=== PATIENT | male | born 1965 | race Caucasian/White ===

== ENCOUNTER → 2019-09-27 | Outpatient (CLI) | payer BC ==
[2019-09-27 10:02] LABS: Basophils # (A) 0.2 k/uL (0-0.2); Basophils % (A) 2 %; Eosinophils # (A) 0.3 k/uL (0-0.7); Eosinophils % (A) 3 %; HCT 48.6 % (39.0-53.0); HGB 16.5 gm/dL (13.0-17.5); Lymphocytes % (A) 30 %; MCH 32.3 pg (25.0-35.0); MCV 95.1 fL (80.0-100.0); Mean Platelet Volume 6.2; Monocytes # (A) 0.8 k/uL (0-1.0); Monocytes % (A) 7 %; Neutrophils # (A) 5.7 k/uL (1.3-7.7); Neutrophils % (A) 56 %; Platelet Count 361 k/uL (150-450); RBC 5.11 m/uL (4.30-5.90); WBC 10.2 k/uL (3.8-10.6)
[2019-09-27 16:04] LABS: African American GFR (CKD) 79.5 (60.0-200.0); Albumin 4.8 g/dL (3.80-4.90); Albumin/Globulin Ratio 2.67 (1.60-3.17); Anion Gap 12.6 mmol/L (4.00-12.00); Calcium 10.2 mg/dL (8.7-10.3); Carbon Dioxide 25.4 mmol/L (21.6-31.8); Chol/HDL Ratio 3.4; Globulin 1.8 g/dL (1.6-3.3); LDL Cholesterol,Calculated 76.4 mg/dL (0.0-131.0); Non-African American GFR(CKD) 68.6 (60.0-200.0); Potassium 4.8 mmol/L (3.5-5.5); Total Bilirubin 0.4 mg/dL (0.2-1.2); Total Protein 6.6 g/dL (6.2-8.2); VLDL Calculation 38.6 mg/dL (5.00-40.00)
[2019-09-27 17:41] LABS: Microalbumin Creatinine Ratio <30 mg/g Creat (0-30)
[2019-09-27 17:50] LABS: Hemoglobin A1C 7.7 % (4.0-6.0)
== END | disposition home or self-care (01) ==
LOC: LABWHC1 09:17
PROVIDERS: ATTEND Internal Medicine
DX: I10 Essential (primary) hypertension (principal); E11.65 Type 2 diabetes mellitus with hyperglycemia; E03.9 Hypothyroidism, unspecified; Z12.5 Encounter for screening for malignant neoplasm of prostate
CPT/HCPCS: 36415; 80053; 80061; 82043; 82570; 83036; 84153; 84439; 84443; 85025

== ENCOUNTER 2020-08-01 09:47 | Emergency (ER) | payer BC ==
--- NOTE | 2020-08-01 10:10 | ED ---
Fall HPI - General Chief Complaint: Fall Stated Complaint: Fall Time Seen by Provider: 08/01/20 09:58 Source: patient, RN notes reviewed, old records reviewed Mode of arrival: ambulatory - History of Present Illness Initial Comments: Patient is a 55-year-old male presents emergency room today with right rib and chest wall pain after falling on Thursday. Patient reports that he tripped and fell forward into a doorway try to catch himself on his hands. He states that he then fell backwards striking his back. He also states he has a black eye but did not have any loss consciousness or headache. The fall happened on Thursday. Patient reports that the chest wall pain is reproducible with movement. Denies any significant difficulty in breathing. He states it feels like rib fracture fractures these had previously. - Related Data Home Medications Medication Instructions Recorded Confirmed Sertraline [Zoloft] 100 mg PO BID 07/10/15 08/01/20 lisinopriL [Prinivil] 20 mg PO DAILY 07/10/15 08/01/20 metFORMIN HCL 1,000 mg PO BID 07/10/15 08/01/20 Hydrochlorothiazide 25 mg PO DAILY 08/20/16 08/01/20 Amitriptyline HCl [Elavil] 25 mg PO HS 08/01/20 08/01/20 Butalb/APAP/Caff 50-325-40Mg 1 tab PO Q4H PRN 08/01/20 08/01/20 [Fioricet 50-325-40] Gabapentin [Neurontin] 400 mg PO TID 08/01/20 08/01/20 Ibuprofen [Motrin Ib] 400 mg PO Q6H PRN 08/01/20 08/01/20 Levothyroxine Sodium [Synthroid] 25 mcg PO DAILY 08/01/20 08/01/20 Loratadine [Claritin] 10 mg PO DAILY 08/01/20 08/01/20 Simvastatin [Zocor] 20 mg PO HS 08/01/20 08/01/20 traMADol HCL [Ultram] 50 mg PO TID PRN 08/01/20 08/01/20 Previous Rx's Medication Instructions Recorded Naproxen 500 mg PO BID #20 tablet 08/01/20 Allergies Allergy/AdvReac Type Severity Reaction Status Date / Time Penicillins AdvReac Unknown Verified 08/01/20 11:07 Review of Systems ROS Statement: Those systems with pertinent positive or pertinent negative responses have been documented in the HPI. ROS Other: All systems not noted in ROS Statement are negative. Past Medical History Past Medical History: Diabetes Mellitus, Hyperlipidemia, Hypertension Additional Past Medical History / Comment(s): back pain History of Any Multi-Drug Resistant Organisms: None Reported Additional Past Surgical History / Comment(s): oral Past Psychological History: No Psychological Hx Reported, Depression Smoking Status: Current every day smoker Past Alcohol Use History: None Reported, Abuse Past Drug Use History: None Reported General Exam - General Exam Comments Initial Comments: Alert and oriented 55-year-old male. No distress. Limitations: no limitations General appearance: alert, in no apparent distress Head exam: Present: atraumatic, normocephalic, normal inspection Eye exam: Present: normal appearance, PERRL, EOMI, other (Patient contusion of the left eye.). Absent: scleral icterus, conjunctival injection, periorbital swelling ENT exam: Present: normal exam, mucous membranes moist Neck exam: Present: normal inspection. Absent: tenderness, meningismus, lymphadenopathy Respiratory exam: Present: normal lung sounds bilaterally, other (Patient has right-sided rib pain). Absent: respiratory distress, wheezes, rales, rhonchi, stridor Cardiovascular Exam: Present: regular rate, normal rhythm, normal heart sounds. Absent: systolic murmur, diastolic murmur, rubs, gallop, clicks GI/Abdominal exam: Present: soft, normal bowel sounds. Absent: distended, tenderness, guarding, rebound, rigid Extremities exam: Present: normal inspection, full ROM, normal capillary refill. Absent: tenderness, pedal edema, joint swelling, calf tenderness Back exam: Present: normal inspection Neurological exam: Present: alert, oriented X3, CN II-XII intact Psychiatric exam: Present: normal affect, normal mood Course Vital Signs 08/01/20 08/01/20 08/01/20 09:49 10:52 11:00 Temperature 97 F L Pulse Rate 75 78 78 Respiratory 16 18 18 Rate Blood Pressure 151/81 134/91 134/91 O2 Sat by Pulse 98 97 97 Oximetry Medical Decision Making - Medical Decision Making 55-year-old male presents with right rib pain and tenderness palpation since a fall on Thursday. He also has a black eye. No bony tenderness on the face. No loss consciousness. Patient's on a blood thinners. Chest x-ray and rib x-ray reviewed and show no evidence of fracture. Discussed likely contusion and muscle strain. Advised following up with PCP and will take antibiotic and her medicine for pain. - Radiology Data Radiology results: report reviewed Right rib and checks x-ray was reviewed lungs are clear. No pneumothorax. 2 showing. No evidence of displaced rib fracture or signs of fracture. Negative study. Disposition Clinical Impression: Rib contusion, Black eye Disposition: HOME SELF-CARE Condition: Good Instructions (If sedation given, give patient instructions): Rib Contusion (ED) Additional Instructions: Patient has a take Tylenol Motrin for pain. Return to the ED if any alarming signs or symptoms occur. Prescriptions: Naproxen 500 mg PO BID #20 tablet Is patient prescribed a controlled substance at d/c from ED?: No Referrals: Uriel Arzate MD [Primary Care Provider] - 1-2 days Time of Disposition: 11:19
--- NOTE | 2020-08-01 10:27 | XR ---
EXAMINATION TYPE: XR ribs RT w pa chest xray DATE OF EXAM: 08/01/2020 COMPARISON: NONE HISTORY: Pain TECHNIQUE: Single view of the chest 4 views of the ribs are submitted. FINDINGS: The lungs are clear. No Evidence for pneumothorax. No evidence for focal contusion. Medi astinal structures are midline. Evaluation of the ribs fails to demonstrate evidence for displaced r ib fracture or secondary sign of rib fracture. IMPRESSION: Negative study
[2020-08-01] MEDS ORDERED: KETOROLAC 15 MG/ML 1 ML VIAL IM STA (10:55)
[2020-08-01 11:05] VITALS: RESP 18
[2020-08-01] MEDS ORDERED: ACET/COD 300 MG/30 MG STARTER PACK 6 TAB BTL PO STA (11:18)
[2020-08-01 11:32] VITALS: BP 123/90; PULSE 76; TEMP 98.4
== END 2020-08-01 11:31 | disposition home or self-care (01) ==
LOC: EC 09:47
DX: S20.211A Contusion of right front wall of thorax, initial encounter (principal); S00.12XA Contusion of left eyelid and periocular area, initial encounter; E11.9 Type 2 diabetes mellitus without complications; E78.5 Hyperlipidemia, unspecified; I10 Essential (primary) hypertension; F32.9 Major depressive disorder, single episode, unspecified; Z79.84 Long term (current) use of oral hypoglycemic drugs; Z79.899 Other long term (current) drug therapy; Z88.0 Allergy status to penicillin; W01.10XA Fall on same level from slipping, tripping and stumbling with subsequent striking against unspecified object, initial encounter
CPT/HCPCS: 71101; 96372; 99284; J1885

== ENCOUNTER 2021-03-08 16:01 | Inpatient (IN) | payer BC ==
--- NOTE | 2021-03-08 16:22 | ED ---
General Adult HPI - General Stated complaint: Slurred speech, stumbling Time Seen by Provider: 03/08/21 16:16 - History of Present Illness Initial comments: Dictation was produced using [employer] dictation software. please excuse any grammatical, word or spelling errors. This patient was cared for during a federal and state declared state of emergen cy secondary to Covid 19 Chief Complaint: 56-year-old male with unknown medical history presents to the emergency department for garbled speech History of Present Illness: 86-year-old male according to chart review patient has past medical history diabetes dyslipidemia and hypertension. He allegedly was dropped off by significant other for chief complaint of garbled speech. Patient unable to provide history of present illness at this time. There is a female that dropped him off that left after patient was taken by ER staff. Chart review shows that patient was seen here in July of last year after a fall. Listed medical problems are diabetes dyslipidemia hypertension. He is also a tobacco user. Unable to obtain secondary to mental status PHYSICAL EXAM: General Impression: Alert, not in acute distress HEENT: Normocephalic atraumatic, extra-ocular movements intact, pupils equal and reactive to light bilaterally, mucous membranes moist. Cardiovascular: Heart regular rate and rhythm Chest: no retractions, no tachypnea Abdomen: abdomen soft, non-tender, non-distended, no organomegaly Musculoskeletal: Pulses present and equal in all extremities, no peripheral [place] Neurological: Doesn't follow commands, garbled speech, aphasic, does move all extremities grossly, does react to painful stimuli of all extremities. No identifiable facial droop at rest. ED course: 56-year-old male presents with neurologic deficits. He is unclear when time of onset of his symptoms were. It is assumed that it was rather acute. Code stroke was paged. Blood sugar is 119. More information was obtained from Chayo over the phone was his mother. Chayo gave me the contact information for Dot who lives with the patient. Dot was reset [phone]. She states that at approximately 4:10 PM patient began having symptoms of slurred speech and ataxia. States that around 4:00 PM he was at his baseline usual status.. Time of onset of patient's symptoms we are going to identify at around 4:00 PM. Further chart review was performed. There is no documentation in the ER note that states that patient ever had intracranial bleed. Furthermore, no neck limitation any coagulopathy. Patient's initial NIH score on arrival was 13. He does not follow commands, severe aphasia and slurred speech. Patient reevaluated at 4:45 PM. His symptoms are significantly improved. Patient'sNIH score was remeasured. He is now a 2-3. Risks and benefits were discussed with the administration of TPA. Patient is now coherent and able to make decisions. He is follow commands however he still mildly dysarthric and unable to repeat certain phrases. He is told that without this medicine he could have this speech issue permanently. Risks were discussed with the patient including intracranial bleed, permanent morbidity and mortality. Patient does not want TPA administered. Patient was evaluated via stroke robot by stroke Dr. Mcintyre. Patient is rap idly improving symptoms. CT of the brain is EKG was reviewed by stroke doctor. TPA was not indicated at this time due to rapidly improving NIH. At this point risks outweigh the benefits. Patient is agreeable with plan. Case is discussed with on-call neurologist Dr. Grady who requests ordering MRI and EEG. EKG interpretation: Ventricular rate 105, sinus tachycardia, DC interval 174, QRS 70, QTC 452. No DC prolongation, no QTC prolongation, no ST or T-wave changes noted. No old EKG for comparison. Overall, this EKG is nonspecific - Related Data Home Medications Medication Instructions Recorded Confirmed Sertraline [Zoloft] 100 mg PO DAILY 07/10/15 03/08/21 lisinopriL [Prinivil] 20 mg PO DAILY 07/10/15 03/08/21 metFORMIN HCL 1,000 mg PO BID 07/10/15 03/08/21 Amitriptyline HCl [Elavil] 25 mg PO HS 08/01/20 03/08/21 Gabapentin [Neurontin] 400 mg PO TID 08/01/20 03/08/21 traMADol HCL [Ultram] 50 mg PO QID PRN 08/01/20 03/08/21 Butalb/Acetaminophen/Caffeine 1 cap PO BID PRN 03/08/21 03/08/21 [Fioricet 50-300-40 mg Capsule] Levothyroxine Sodium [Synthroid] 75 mcg PO DAILY 03/08/21 03/08/21 Nicotine 21Mg/24Hr Patch [Habitrol] 1 patch TRANSDERM DAILY PRN 03/08/21 03/08/21 Omeprazole Magnesium [PriLOSEC OTC] 20 mg PO TID PRN 03/08/21 03/08/21 glipiZIDE [Glucotrol] 5 mg PO HS 03/08/21 03/08/21 Allergies Allergy/AdvReac Type Severity Reaction Status Date / Time Penicillins AdvReac Unknown Verified 03/08/21 16:55 Review of Systems ROS Statement: Those systems with pertinent positive or pertinent negative responses have been documented in the HPI. ROS Other: All systems not noted in ROS Statement are negative. Past Medical History Past Medical History: Diabetes Mellitus, Hyperlipidemia, Hypertension Additional Past Medical History / Comment(s): back pain History of Any Multi-Drug Resistant Organisms: None Reported Additional Past Surgical History / Comment(s): oral Past Psychological History: No Psychological Hx Reported, Depression Smoking Status: Current every day smoker Past Alcohol Use History: None Reported, Abuse Past Drug Use History: None Reported Course Vital Signs 03/08/21 03/08/21 03/08/21 16:19 16:25 16:40 Temperature 98.8 F 98.8 F 98 F Pulse Rate 108 H 108 H 92 Respiratory 16 16 18 Rate Blood Pressure 114/85 114/85 134/93 O2 Sat by Pulse 99 99 99 Oximetry 03/08/21 16:55 Temperature 98 F Pulse Rate 86 Respiratory 18 Rate Blood Pressure 133/82 O2 Sat by Pulse 99 Oximetry Medical Decision Making - Lab Data Result diagrams: 03/08/21 16:31 03/08/21 16:31 Lab Results 03/08/21 03/08/21 03/08/21 Range/Units 16:19 16:31 16:31 WBC 12.1 H (3.8-10.6) k/uL RBC 5.06 (4.30-5.90) m/uL Hgb 16.1 (13.0-17.5) gm/dL Hct 47.0 (39.0-53.0) % MCV 93.0 (80.0-100.0) fL MCH 31.9 (25.0-35.0) pg MCHC 34.3 (31.0-37.0) g/dL RDW 12.7 (11.5-15.5) % Plt Count 358 (150-450) k/uL MPV 7.5 Neutrophils % 57 % Lymphocytes % 31 % Monocytes % 8 % Eosinophils % 2 % Basophils % 1 % Neutrophils # 6.9 (1.3-7.7) k/uL Lymphocytes # 3.8 (1.0-4.8) k/uL Monocytes # 0.9 (0-1.0) k/uL Eosinophils # 0.2 (0-0.7) k/uL Basophils # 0.1 (0-0.2) k/uL PT 9.5 (9.0-12.0) sec INR 0.9 (<1.2) APTT 23.1 (22.0-30.0) sec Sodium (137-145) mmol/L Potassium (3.5-5.1) mmol/L Chloride (98-107) mmol/L Carbon Dioxide (22-30) mmol/L Anion Gap mmol/L BUN (9-20) mg/dL Creatinine (0.66-1.25) mg/dL Est GFR (CKD-EPI)AfAm (>60 ml/min/1.73 sqM) Est GFR (CKD-EPI)NonAf (>60 ml/min/1.73 sqM) Glucose (74-99) mg/dL POC Glucose (mg/dL) 119 H (75-99) mg/dL POC Glu Change House Attendant ID Fabiola Mckenzie Calcium (8.4-10.2) mg/dL Total Bilirubin (0.2-1.3) mg/dL AST (17-59) U/L ALT (4-49) U/L Alkaline Phosphatase (38-126) U/L Troponin I (0.000-0.034) ng/mL Total Protein (6.3-8.2) g/dL Albumin (3.5-5.0) g/dL 03/08/21 03/08/21 Range/Units 16:31 16:31 WBC (3.8-10.6) k/uL RBC (4.30-5.90) m/uL Hgb (13.0-17.5) gm/dL Hct (39.0-53.0) % MCV (80.0-100.0) fL MCH (25.0-35.0) pg MCHC (31.0-37.0) g/dL RDW (11.5-15.5) % Plt Count (150-450) k/uL MPV Neutrophils % % Lymphocytes % % Monocytes % % Eosinophils % % Basophils % % Neutrophils # (1.3-7.7) k/uL Lymphocytes # (1.0-4.8) k/uL Monocytes # (0-1.0) k/uL Eosinophils # (0-0.7) k/uL Basophils # (0-0.2) k/uL PT (9.0-12.0) sec INR (<1.2) APTT (22.0-30.0) sec Sodium 139 (137-145) mmol/L Potassium 4.1 (3.5-5.1) mmol/L Chloride 105 (98-107) mmol/L Carbon Dioxide 25 (22-30) mmol/L Anion Gap 9 mmol/L BUN 18 (9-20) mg/dL Creatinine 1.21 (0.66-1.25) mg/dL Est GFR (CKD-EPI)AfAm 78 (>60 ml/min/1.73 sqM) Est GFR (CKD-EPI)NonAf 67 (>60 ml/min/1.73 sqM) Glucose 120 H (74-99) mg/dL POC Glucose (mg/dL) (75-99) mg/dL POC Glu Change House Attendant ID Calcium 9.7 (8.4-10.2) mg/dL Total Bilirubin 0.3 (0.2-1.3) mg/dL AST 34 (17-59) U/L ALT 27 (4-49) U/L Alkaline Phosphatase 82 (38-126) U/L Troponin I 4.500 H* (0.000-0.034) ng/mL Total Protein 6.9 (6.3-8.2) g/dL Albumin 4.4 (3.5-5.0) g/dL Disposition Clinical Impression: Cerebrovascular accident (CVA) Disposition: ADMITTED IP TO THIS HOSP Condition: Fair Referrals: Uriel Arzate MD [Primary Care Provider] - 1-2 days Decision Time: 17:23
[2021-03-08 16:38] LABS: Glucose,Whole Blood 119 mg/dL (75-99)
[2021-03-08 16:49] LABS: Albumin 4.4 g/dL (3.5-5.0); Calcium 9.7 mg/dL (8.4-10.2); Potassium 4.1 mmol/L (3.5-5.1); Total Bilirubin 0.3 mg/dL (0.2-1.3); Total Protein 6.9 g/dL (6.3-8.2)
--- NOTE | 2021-03-08 16:51 | CT ---
EXAMINATION TYPE: CT brain wo con for TPA DATE OF EXAM: 03/08/2021 COMPARISON: None HISTORY: Altered mental status. CT DLP: 1128.8 mGycm Automated exposure control for dose reduction was used. Images were obtained without contrast. Ventricles and sulci appear normal. There is no mass effect nor midline shift. There is no sign of in tracranial hemorrhage. The calvarium is intact. There is no evidence of cerebral edema. There is inco mplete pneumatization of the mastoid sinuses. IMPRESSION: Negative unenhanced head CT scan.
[2021-03-08 16:54] LABS: INR 0.9 (<1.2); Partial Thromboplastin Time 23.1 sec (22.0-30.0); Prothrombin Time 9.5 sec (9.0-12.0)
[2021-03-08 17:00] LABS: Basophils # (A) 0.1 k/uL (0-0.2); Basophils % (A) 1 %; Eosinophils # (A) 0.2 k/uL (0-0.7); Eosinophils % (A) 2 %; HGB 16.1 gm/dL (13.0-17.5); Lymphocytes # (A) 3.8 k/uL (1.0-4.8); Lymphocytes % (A) 31 %; MCH 31.9 pg (25.0-35.0); MCHC 34.3 g/dL (31.0-37.0); Mean Platelet Volume 7.5; Monocytes # (A) 0.9 k/uL (0-1.0); Monocytes % (A) 8 %; Neutrophils # (A) 6.9 k/uL (1.3-7.7); Neutrophils % (A) 57 %; Platelet Count 358 k/uL (150-450); RBC 5.06 m/uL (4.30-5.90); RDW 12.7 % (11.5-15.5); WBC 12.1 k/uL (3.8-10.6)
[2021-03-08] MEDS ORDERED: ASPIRIN 81 MG PO STA (17:03)
[2021-03-08] MEDS ORDERED: ACETAMINOPHEN TAB 325 MG TAB PO PRN (17:04)
[2021-03-08] MEDS ORDERED: NALOXONE 0.4 MG/ML 1 ML VIAL IV PRN (17:04)
[2021-03-08] MEDS ORDERED: NICOTINE 21MG/24HR PATCH TRANSDERM STA (17:09)
--- NOTE | 2021-03-08 17:12 | CT ---
EXAMINATION TYPE: CT angio head neck DATE OF EXAM: 03/08/2021 COMPARISON: None HISTORY: Altered mental status. CT DLP: 659.5 mGycm Automated exposure control for dose reduction was used. CONTRAST: Performed with IV Contrast, patient injected with 65 mL of Isovue 370. Images were obtained from the aortic arch to the vertex of the brain with IV contrast. There are 3-D post processed images. There is normal branching pattern of the great vessels on the aortic arch. There is bilateral arteria l flow in the subclavian arteries. There is arterial flow in the common internal and external carotid arteries bilaterally. There is wide patency of the carotid artery bifurcations. No significant plaque formation. There is n o evidence of carotid or vertebral artery aneurysm or dissection. There is arterial flow in the anterior middle and posterior cerebral arteries. There is normal enhanc ement of the venous sinuses. There is no evidence of intracranial arterial stenosis. There is no evid ence of intracranial aneurysm or neovascularity. There is no mass effect. IMPRESSION: Negative CT angiogram the neck. Negative CT angiogram of the brain.
--- NOTE | 2021-03-08 17:20 | XR ---
EXAMINATION TYPE: XR chest 1V portable DATE OF EXAM: 03/08/2021 COMPARISON: 08/01/2020 HISTORY: Pain TECHNIQUE: Single view FINDINGS: : There is no heart failure nor confluent pneumonic infiltrate. Costophrenic angles are clear. There ar e chest leads. IMPRESSION: No active cardiopulmonary disease. Normal chest. No change.
[2021-03-08] MEDS: SODIUM CHLORIDE 0.9% 1,000 ML IV SCH (18:30)
--- NOTE | 2021-03-08 19:50 | MR ---
EXAMINATION TYPE: MR brain wo/w con DATE OF EXAM: 03/08/2021 COMPARISON: None HISTORY: CVA, slurred speech, stumbling, no weakness. CONTRAST: Standard multiplanar, multisequence MRI departmental protocol utilizing 8 mL intravenous Gadavist leigh olinium contrast. Ventricles have normal size. There is no mass effect nor midline shift. There is no evidence of intra cranial hemorrhage. Diffusion images show slight increased signal in the cortex of the right posterio r temporal lobe. This does not show any significant signal abnormality on the T2 and FLAIR images. Brainstem is intact. Cerebellum is intact. Corpus callosum is intact. The sella turcica appears steve l. There is no evidence of orbital mass. There is normal enhancement of the venous sinuses. There is no pathologic enhancement. IMPRESSION: 13 mm area of increased signal on the diffusion images left posterior temporal lobe could relate to a n acute infarct.
[2021-03-08 20:40] LABS: Glucose,Whole Blood 124 mg/dL (75-99)
[2021-03-09 06:41] LABS: Glucose,Whole Blood 137 mg/dL (75-99)
[2021-03-09] MEDS ORDERED: ATORVASTATIN 80 MG TAB PO SCH (09:00)
[2021-03-09] MEDS: ASPIRIN 81 MG PO SCH (09:19)
[2021-03-09] MEDS: carvediloL 3.125 MG TAB PO SCH ×2 (10:58→17:36)
[2021-03-09] MEDS: lisinopriL 5 MG TAB PO SCH (10:58)
[2021-03-09] MEDS ORDERED: CLOPIDOGREL 75 MG TAB PO STA (11:29)
--- NOTE | 2021-03-09 11:36 | P.CNNES ---
History of Present Illness Consult date: 03/09/21 Requesting physician: Kevin Redman Reason for Consult: Slurred speech and ataxia History of Present Illness: This is a 56-year-old gentleman with medical history of diabetes, hyperlipidemia, hypertension that presented to the emergency department on 03/08/2021 at around 1601 for garbled speech. Symptom onset was around 3:300 PM on 03/08/2021 and prior to that he was normal. According to patient he stated that the he was having difficulty getting his words out, slurring his speech and had right hand weakness. He felt right side was weak and off. He denies of any stroke in the past. He denies being on aspirin or Plavix. He he stated that he is on the statin but doesn't recall the name of the medication or the dose. Currently he feels back to baseline. He smokes half a pack a day for years. He states that at he does not believe that there is family history of strokes. As a result of his symptoms stroke code was activated. Per ED team his initial NIH stroke scale was 13 and was significantly improved down to a 2-3 in which she remained to be mildly dysarthric and unable to repeat phrases. NIH stroke scale recorded in the chart was NIH total of 7: 2 Orientation (month and age), 1 right leg, 1 left leg, 2 language, 1 dysarthria. Work-up in the hospital: Initial vital signs: Blood pressure of 114/85, heart rate of 108, respiratory of 16, temperature of 98.8 Fahrenheit oral and pulse ox of 99% room air. CT of the head is reported as negative unenhanced head CT scan. CT angiography of the head and neck was reported as negative CT angiography of the head and neck. Patient initial blood sugar is 119. EKG is reported as sinus tachycardia. Low voltage QRS. Cannot rule out anteroseptal infarct, age undetermined. Abnormal EKG. Stroke attending Dr. Rich was stroke attending. And felt TPA was not indicated since rapid improving off NIH. I was notified by the ED team that the stroke attending felt to rule out seizure. MRI the brain is reported as 13 mm area of increased signal on the diffusion images left posterior temporal lobe could relate to 8 an acute infarct. Lipid panel: Triglyceride of 118, cholesterol of 171, LDL 101, HDL 46. Other workup: Troponin is 4.5 and the repeat is 4.3. Review of Systems Review of system: The 12 point system was reviewed and apparent positive and negative per HPI. Past Medical History Past Medical History: Diabetes Mellitus, Hyperlipidemia, Hypertension Additional Past Medical History / Comment(s): back pain History of Any Multi-Drug Resistant Organisms: None Reported Additional Past Surgical History / Comment(s): oral Past Anesthesia/Blood Transfusion Reactions: No Reported Reaction Past Psychological History: No Psychological Hx Reported, Depression Smoking Status: Current every day smoker Past Alcohol Use History: None Reported, Abuse Past Drug Use History: None Reported Medications and Allergies Home Medications Medication Instructions Recorded Confirmed Type Sertraline [Zoloft] 100 mg PO DAILY 07/10/15 03/08/21 History lisinopriL [Prinivil] 20 mg PO DAILY 07/10/15 03/08/21 History metFORMIN HCL 1,000 mg PO BID 07/10/15 03/08/21 History Amitriptyline HCl [Elavil] 25 mg PO HS 08/01/20 03/08/21 History Gabapentin [Neurontin] 400 mg PO TID 08/01/20 03/08/21 History traMADol HCL [Ultram] 50 mg PO QID PRN 08/01/20 03/08/21 History Butalb/Acetaminophen/Caffeine 1 cap PO BID PRN 03/08/21 03/08/21 History [Fioricet 50-300-40 mg Capsule] Levothyroxine Sodium [Synthroid] 75 mcg PO DAILY 03/08/21 03/08/21 History Nicotine 21Mg/24Hr Patch [Habitrol] 1 patch TRANSDERM DAILY PRN 03/08/21 03/08/21 History Omeprazole Magnesium [PriLOSEC OTC] 20 mg PO TID PRN 03/08/21 03/08/21 History glipiZIDE [Glucotrol] 5 mg PO HS 03/08/21 03/08/21 History Allergies Allergy/AdvReac Type Severity Reaction Status Date / Time Penicillins AdvReac Unknown Verified 03/08/21 16:55 Physical Examination - Vital Signs Vital Signs: Vital Signs Temp Pulse Pulse Resp BP BP Pulse Ox 03/09/21 07:19 69 16 03/09/21 07:18 97.8 F 69 16 103/68 98 03/09/21 04:00 97.9 F 70 18 104/66 03/09/21 01:48 75 18 03/08/21 23:44 97.9 F 75 18 105/62 99 03/08/21 20:00 98.2 F 78 20 112/61 95 03/08/21 19:01 78 18 116/69 98 03/08/21 17:33 98.2 F 78 20 112/61 95 03/08/21 16:55 98 F 86 18 133/82 99 03/08/21 16:40 98 F 92 18 134/93 99 03/08/21 16:25 98.8 F 108 H 16 114/85 99 03/08/21 16:19 98.8 F 108 H 16 114/85 99 Intake and Output 03/08/21 03/09/21 03/09/21 22:59 06:59 14:59 Intake Total 0 Balance 0 Intake: Oral 0 Other: Voiding Method Toilet Toilet Toilet # Voids 1 Weight 81.647 kg 80.9 kg GENERAL: The patient is lying in bed and is not in acute distress. CHEST: The heart rate is regular rate rhythm. No murmurs to auscultation. No carotid bruit bilaterally. LUNG: Clear to auscultation bilaterally no wheezing noted throughout. Not labored breathing. ABDOMEN/GI: Bowel sounds present in all 4 quadrants. No tenderness to palpation throughout. NEUROLOGICAL: Higher mental function: The patient is awake, alert, oriented to self, place and time. Patient is following commands. No aphasia and no neglect. Cranial nerves: The pupils are round, equal and reactive to light and accommodation. Visual monge are full to confrontation throughout. Extraocular movement is intact no nystagmus is noted. Facial sensation is normal to touch throughout. The facial strength is normal throughout. Hearing is normal bilaterally to hand rub. Tongue is midline and moved [id number] without any difficulty. No dysarthria is noted. Shoulder shrug is normal bilaterally. Motor: Gait is deferred. The strength is 5 over 5 throughout. Normal tone and bulk. Cerebellum: Normal finger to nose heel to chin bilaterally. Sensation: Sensation is normal to touch throughout. Reflexes (right/left): 2+ throughout. Plantars are downgoing bilaterally. Results SARS COV 2 PCR was not detected The sodium is 139 which is normal and the rest of the basic CBC and electrolytes were reviewed. Titration study were also reviewed - Laboratory Findings CBC and BMP: 03/08/21 16:31 03/08/21 16:31 Abnormal Lab Findings: Abnormal Labs 03/08/21 03/08/21 03/08/21 16:19 16:31 16:31 WBC 12.1 H Glucose 120 H POC Glucose (mg/dL) 119 H Troponin I LDL Cholesterol, Calc 03/08/21 03/08/21 03/09/21 16:31 20:39 06:37 WBC Glucose POC Glucose (mg/dL) 124 H 137 H Troponin I 4.500 H* LDL Cholesterol, Calc 03/09/21 08:37 WBC Glucose POC Glucose (mg/dL) Troponin I LDL Cholesterol, Calc 101 H Assessment and Plan Assessment: Acute ischemic stroke (Symptoms of Transient aphasia, dysarthria, right sided weakness). With MRI Brain reported as area of increased signal on the diffusion images left posterior temporal lobe could relate to an acute infarct. Initially NIH 13 that improved to 0. No tpa since resolution of symptoms. Seem due to cardioembolic. Elevated troponin Diabetes mellitus Hyperlipidemia Hypertension Tobacco use (1/2 PPD for years) Plan: * NIH stroke scale was 13 and was significantly improved down to a 2-3 in which she remained to be mildly dysarthric and unable to repeat phrases. * CT of the head is reported as negative unenhanced head CT scan. * CT angiography of the head and neck was reported as negative CT angiography of the head and neck. * MRI the brain is reported as 13 mm area of increased signal on the diffusion images left posterior temporal lobe could relate to an acute infarct. * Lipid panel: Triglyceride of 118, cholesterol of 171, LDL 101, HDL 46. LDL goal <70 in stroke. * TSH: 2.65 (normal) * The patient was given 324mg ASA in ED. I started the patient ASA 81mg and I loaded the patient with Plavix 300mg once. * I spoke with the cardiology team and they stated that that patient has elevated troponin and echo showing revealed severed wall motion abnormality. Cardiology wanted to start the patient on anticoagulation. Because of the acute ischemic stroke, I notified them if they needs to start on anticoagulation then can start on heparin drip and to avoid boluses and keep PTT between 45-60. Patient will be started on anticoagulation tomorrow rather than today to avoid hemorrhagic conversion. This was relayed to the patient and he was in agreement with the plan. I notified that patient about cardiology finding and there is a chance of stroke if anticoagulation is not started on it today but he refused on two different occasions and wants it to be started tomorrow. * I started the patient on Lipitor 80mg daily (he stated he is on statin at home but does not recall dose) * 2 D echo is ordered and is pending. * Continue continous cardiac monitoring. * I consulted PT, OT and WASHERY ENGINEER * Continue Q4 hour neuro checks. * I ordered a routine EEG on 03/08/21 since stroke attending felt it was a seizure. I will not start the patient on antiepileptic drug unless there is epileptiform discharge or seizure on the EEG. The tech already performed it. * Troponin is 4.5 and the repeat is 4.3. * Cardiology is consulted. * The patient was counseled on tobacco cessation. Will defer the rest of the medical management to the primary team. The plan was discussed with cardiology and patient's nurse. Thank you for the consult Marin Grady MD Neuro-Hospitalist Time with Patient: Greater than 30
[2021-03-09 11:51] LABS: Glucose,Whole Blood 176 mg/dL (75-99)
[2021-03-09] MEDS ORDERED: HEPARIN SODIUM 1,000 UN/ML (10ML VL) IV PRN (11:53)
--- NOTE | 2021-03-09 11:55 | P.HPIM ---
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 Patient was evaluated in the emergency room, vital examination on presentation revealed a temperature of 98.8 pulse 108 respirations 16 blood pressure 114/85 pulse ox 99% on room air, white blood count 12.1 hemoglobin 16.1 platelet count 358 sodium 139 potassium 4.1 chloride 105 CO2 25 glucose 120 BUN 18 creatinine 1.21 troponin level was elevated at 4.5 computed tomography scan of the brain without contrast was done in the emergency room and was negative. CT angiogram of the neck and brain was negative patient was admitted to telemetry floor neurology consultation was requested also cardiology consultation was requested in regard to elevated troponin level. MRI of the brain was done and revealed evidence of 13 mm area of increased signal in the left posterior temporal lobe that could relate to an acute infarct. Past Medical History Past Medical History: Diabetes Mellitus, Hyperlipidemia, Hypertension Additional Past Medical History / Comment(s): back pain History of Any Multi-Drug Resistant Organisms: None Reported Additional Past Surgical History / Comment(s): oral Past Anesthesia/Blood Transfusion Reactions: No Reported Reaction Past Psychological History: No Psychological Hx Reported, Depression Smoking Status: Current every day smoker Past Alcohol Use History: None Reported, Abuse Past Drug Use History: None Reported Medications and Allergies Home Medications Medication Instructions Recorded Confirmed Type Sertraline [Zoloft] 100 mg PO DAILY 07/10/15 03/08/21 History lisinopriL [Prinivil] 20 mg PO DAILY 07/10/15 03/08/21 History metFORMIN HCL 1,000 mg PO BID 07/10/15 03/08/21 History Amitriptyline HCl [Elavil] 25 mg PO HS 08/01/20 03/08/21 History Gabapentin [Neurontin] 400 mg PO TID 08/01/20 03/08/21 History traMADol HCL [Ultram] 50 mg PO QID PRN 08/01/20 03/08/21 History Butalb/Acetaminophen/Caffeine 1 cap PO BID PRN 03/08/21 03/08/21 History [Fioricet 50-300-40 mg Capsule] Levothyroxine Sodium [Synthroid] 75 mcg PO DAILY 03/08/21 03/08/21 History Nicotine 21Mg/24Hr Patch [Habitrol] 1 patch TRANSDERM DAILY PRN 03/08/21 03/08/21 History Omeprazole Magnesium [PriLOSEC OTC] 20 mg PO TID PRN 03/08/21 03/08/21 History glipiZIDE [Glucotrol] 5 mg PO HS 03/08/21 03/08/21 History Allergies Allergy/AdvReac Type Severity Reaction Status Date / Time Penicillins AdvReac Unknown Verified 03/08/21 16:55 Physical Exam Vitals: Vital Signs Temp Pulse Pulse Resp BP BP Pulse Ox 03/09/21 07:19 69 16 03/09/21 07:18 97.8 F 69 16 103/68 98 03/09/21 04:00 97.9 F 70 18 104/66 03/09/21 01:48 75 18 03/08/21 23:44 97.9 F 75 18 105/62 99 03/08/21 20:00 98.2 F 78 20 112/61 95 03/08/21 19:01 78 18 116/69 98 03/08/21 17:33 98.2 F 78 20 112/61 95 03/08/21 16:55 98 F 86 18 133/82 99 03/08/21 16:40 98 F 92 18 134/93 99 03/08/21 16:25 98.8 F 108 H 16 114/85 99 03/08/21 16:19 98.8 F 108 H 16 114/85 99 Intake and Output 03/08/21 03/09/21 03/09/21 22:59 06:59 14:59 Intake Total 240 Balance 240 Intake: Oral 240 Other: Voiding Method Toilet Toilet Toilet # Voids 1 Weight 81.647 kg 80.9 kg In general patient is alert and oriented x 3 in no distress HEENT head normocephalic and atraumatic Neck is supple no JVD no goiter no lymphadenopathy no carotid bruit Chest examination is clear to auscultation no crackles no wheezing Cardiac exam reveals regular heart sounds S1 and S2 no gallops no murmurs Abdomen is soft nontender no organomegaly with normal bowel sounds Extremity exam reveals no edema no cyanosis or clubbing Neurological examination reveals no gross focal deficits, at this time mental status is normal speech is fluent Cranial nerve II-12 are intact Motor exam reveals no focal weakness Sensory exam reveals no focal deficit to touch and painful stimuli Reflexes are 2+ symmetrical and plantars are downward bilaterally Results CBC & Chem 7: 03/08/21 16:31 03/08/21 16:31 Labs: Abnormal Lab Results - Last 24 Hours (Table) 03/08/21 03/08/21 03/08/21 Range/Units 16:19 16:31 16:31 WBC 12.1 H (3.8-10.6) k/uL Glucose 120 H (74-99) mg/dL POC Glucose (mg/dL) 119 H (75-99) mg/dL Troponin I (0.000-0.034) ng/mL LDL Cholesterol, Calc (0-99) mg/dL 03/08/21 03/08/21 03/09/21 Range/Units 16:31 20:39 06:37 WBC (3.8-10.6) k/uL Glucose (74-99) mg/dL POC Glucose (mg/dL) 124 H 137 H (75-99) mg/dL Troponin I 4.500 H* (0.000-0.034) ng/mL LDL Cholesterol, Calc (0-99) mg/dL 03/09/21 03/09/21 Range/Units 08:37 08:37 WBC (3.8-10.6) k/uL Glucose (74-99) mg/dL POC Glucose (mg/dL) (75-99) mg/dL Troponin I 4.310 H* (0.000-0.034) ng/mL LDL Cholesterol, Calc 101 H (0-99) mg/dL Thrombosis Risk Factor Assmnt - Choose All That Apply Any of the Below Risk Factors Present?: Yes Each Factor Represents 1 point: Age 41-60 years Other Risk Factors: No Other congenital or acquired thrombophilia - If yes, enter type in comment: No Thrombosis Risk Factor Assessment Total Risk Factor Score: 1 Thrombosis Risk Factor Assessment Level: Low Risk Assessment and Plan Plan: , 1. Acute ischemic stroke, with slurred speech and right upper extremity weakness and numbness, symptoms resolved, neurology consultation following awaiting further recommendation 2. Elevated troponin level, EKG revealing possible acute anteroseptal infarct cardiology consultation requested, IV heparin per protocol was started 3. Underlying history of hypertension 4. Underlying history of hyperlipidemia 5. Underlying history of tobacco abuse patient was counseled in length in regard to smoking cessation At this time patient is admitted to telemetry floor He was seen by neurology and was started on Plavix Cardiology consultation was requested and IV heparin was started in regard to elevated troponin Will follow closely
[2021-03-09] MEDS ORDERED: HEPARIN SODIUM 1,000 UN/ML (10ML VL) IV ONE (12:00)
[2021-03-09] MEDS ORDERED: HEPARIN SOD,PORK IN 0.45% NACL 25,000 UNIT in 0.45% NACL 1 250ML.BAG IV SCH (12:00)
--- NOTE | 2021-03-09 13:02 | P.HPADDEND ---
H&P Addendum H&P Addendum Date: 03/09/21 Per neurology and cardiology recommendation, IV heparin will not be started on 03/09/2021, patient was given Plavix 300 mg 1 dose Recommendation is to start IV heparin tomorrow on 03/10/2021
--- NOTE | 2021-03-09 14:09 | P.CRDCN ---
History of Present Illness Consult date: 03/09/21 Reason for Consult (text): Elevated troponin History of present illness: History of present illness: This is a 56-year-old male with past medical history of diabetes mellitus type 2, hypertension, hyperlipidemia, tobacco use and dependence, alcohol abuse. Patient presented to the emergency center due to garbled speech that started at 4:10 PM with slurred speech and ataxia. Code stroke was called at the time with initial NIH score of 13 with severe aphasia slurred speech and did not follow commands. By 445 his symptoms were improved and score was down to 2 or 3. TPA was not indicated. CAT scan of the brain was negative. CT angiogram of the head and neck were negative. A subsequent he underwent MRI of the brain which revealed a 13 mm area of increased signal in the posterior temporal lobe could relate to acute infarct. Patient was afebrile, heart rate initially 108, blood pressure 114/85 and pulse ox of 99% on room air. EKG was a sinus tachycardia. Chest x-ray shows no acute cardio pulmonary disease. WBC 12.1 otherwise CBC was unremarkable. Electrolytes and renal function normal including creatinine 1.21. Blood sugar 120. Liver function tests were normal. Troponin 4.5, 4.3, 4.05. Patient states that he had difficulty speaking and had numbness of his right hand and weakness. He states he could not pick anything up with his right hand. It was sudden onset of he was putting a cabinet together. He states this is all resolved and is asking to go home. He denies having any chest pain, shortness of breath, lightheadedness or dizziness. 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 He states he has never had echocardiogram done before. He states he had a stress test on a number of years ago was apparently negative and he is not interested in undergoing one at this time. Patient continues to smoke less than one pack per day since he was 13 years of age. Regarding alcohol intake. He quit in May 2020 after he was told by his doctor that his liver was failing. Preliminary reading of echocardiogram reveals severe wall motion abnormality of the apex. Discussed options including heart catheterization as patient is ready to move forward with heart catheterization. Due to cerebral infarct, case was discussed with Dr. Grady and he is agreeable to start patient on heparin drip tomorrow, no bolus and maintain PTT between 45 and 60. Patient's nurse has been updated. Review Of Systems: Constitutional: No fever, no chills. No weakness, fatigue or lethargy. EENT: No headache. No dizziness. Lungs: No shortness of breath, cough, no sputum production. No wheezing. Cardiovascular: No chest pain, no lower extremity edema. No palpitations. No paroxysmal nocturnal dyspnea. No orthopnea. No lightheadedness or dizziness. No syncopal episodes. Abdominal: No abdominal pain. No nausea, vomiting. No diarrhea. No constipation. No bloody or tarry stools.. No loss of appetite. Genitourinary: No dysuria.. No urinary retention. Musculoskeletal: No myalgias. No muscle weakness, no gait dysfunction, no frequent falls. No back pain. No neck pain. Integumentary: No wounds, no lesions. No rash or pruritus. No unusual bruising. Neurologic: No aphasia. No facial droop. No change in mentation. No head injury. No headache. No paralysis. No paresthesia. Psychiatric: No depression. No anxiety. Endocrine: No abnormal blood sugars. Physical examination: Gen: This is a 56-year-old male patient. He is resting in bed and appears to be comfortable and in no acute distress. VS: Afebrile, heart rate 69, blood pressure 103/68, pulse ox 90% on room air. HEENT: Head is atraumatic, normocephalic. Pupils equal, round. Sclerae is anicteric. NECK: Supple. No JVD. No lymphadenopathy. No thyromegaly. LUNGS: Clear to auscultation. No wheezes or rhonchi. No intercostal re tractions. HEART: Regular rate and rhythm. No murmur. ABDOMEN: Soft. Bowel sounds are present. No masses. No tenderness. EXTREMITIES: No pedal edema. No calf tenderness. Dorsalis pedis +2 bilatera lly. NEUROLOGICAL: Patient is awake, alert and oriented x3. Cranial nerves 2 through 12 are grossly intact. Speech is clear. Assessment: Acute left posterior temporal ischemic stroke Elevated troponins, possible non-ST elevated myocardial infarction Severe wall motion abnormality of the apex, final report on echocardiogram is pending Plan: Repeat troponins ordered 2-D echocardiogram and Doppler study to assess cardiac structure and function, ordered by neurology TSH and free T4, lipid panel I have discussed the risks, benefits and alternative therapies for the above- mentioned procedure and for both sedation/analgesia as well as necessary blood product administration, if indicated, as they pertain to this patient. The patient has indicated understanding and acceptance of the risks and procedures discussed. Questions have been answered appropriately and he is agreeable to move forward with the above-stated procedure. Heart heparin drip tomorrow, no bolus, maintain PTT between 45 and 60. Further recommendations to follow based upon clinical course Thank you kindly for this consultation. Nurse practitioner note has been reviewed, I agree with documented findings and plan of care. Patient was seen and examined. Past Medical History Past Medical History: Diabetes Mellitus, Hyperlipidemia, Hypertension Additional Past Medical History / Comment(s): back pain History of Any Multi-Drug Resistant Organisms: None Reported Additional Past Surgical History / Comment(s): oral Past Anesthesia/Blood Transfusion Reactions: No Reported Reaction Past Psychological History: No Psychological Hx Reported, Depression Smoking Status: Current every day smoker Past Alcohol Use History: None Reported, Abuse Past Drug Use History: None Reported Medications and Allergies Home Medications Medication Instructions Recorded Confirmed Type Sertraline [Zoloft] 100 mg PO DAILY 07/10/15 03/08/21 History lisinopriL [Prinivil] 20 mg PO DAILY 07/10/15 03/08/21 History metFORMIN HCL 1,000 mg PO BID 07/10/15 03/08/21 History Amitriptyline HCl [Elavil] 25 mg PO HS 08/01/20 03/08/21 History Gabapentin [Neurontin] 400 mg PO TID 08/01/20 03/08/21 History traMADol HCL [Ultram] 50 mg PO QID PRN 08/01/20 03/08/21 History Butalb/Acetaminophen/Caffeine 1 cap PO BID PRN 03/08/21 03/08/21 History [Fioricet 50-300-40 mg Capsule] Levothyroxine Sodium [Synthroid] 75 mcg PO DAILY 03/08/21 03/08/21 History Nicotine 21Mg/24Hr Patch [Habitrol] 1 patch TRANSDERM DAILY PRN 03/08/21 03/08/21 History Omeprazole Magnesium [PriLOSEC OTC] 20 mg PO TID PRN 03/08/21 03/08/21 History glipiZIDE [Glucotrol] 5 mg PO HS 03/08/21 03/08/21 History Allergies Allergy/AdvReac Type Severity Reaction Status Date / Time Penicillins AdvReac Unknown Verified 03/08/21 16:55 Physical Exam Vitals: Vital Signs Temp Pulse Pulse Resp BP BP Pulse Ox 03/09/21 07:19 69 16 03/09/21 07:18 97.8 F 69 16 103/68 98 03/09/21 04:00 97.9 F 70 18 104/66 03/09/21 01:48 75 18 03/08/21 23:44 97.9 F 75 18 105/62 99 03/08/21 20:00 98.2 F 78 20 112/61 95 03/08/21 19:01 78 18 116/69 98 03/08/21 17:33 98.2 F 78 20 112/61 95 03/08/21 16:55 98 F 86 18 133/82 99 03/08/21 16:40 98 F 92 18 134/93 99 03/08/21 16:25 98.8 F 108 H 16 114/85 99 03/08/21 16:19 98.8 F 108 H 16 114/85 99 Intake and Output 03/08/21 03/09/21 03/09/21 22:59 06:59 14:59 Other: Voiding Method Toilet Toilet Toilet # Voids 1 Weight 81.647 kg 80.9 kg Results 03/08/21 16:31 03/08/21 16:31 Cardiac Enzymes 03/08/21 03/08/21 Range/Units 16:31 16:31 AST 34 (17-59) U/L Troponin I 4.500 H* (0.000-0.034) ng/mL Coagulation 03/08/21 Range/Units 16:31 PT 9.5 (9.0-12.0) sec APTT 23.1 (22.0-30.0) sec CBC 03/08/21 Range/Units 16:31 WBC 12.1 H (3.8-10.6) k/uL RBC 5.06 (4.30-5.90) m/uL Hgb 16.1 (13.0-17.5) gm/dL Hct 47.0 (39.0-53.0) % Plt Count 358 (150-450) k/uL Comprehensive Metabolic Panel 03/08/21 Range/Units 16:31 Sodium 139 (137-145) mmol/L Potassium 4.1 (3.5-5.1) mmol/L Chloride 105 (98-107) mmol/L Carbon Dioxide 25 (22-30) mmol/L BUN 18 (9-20) mg/dL Creatinine 1.21 (0.66-1.25) mg/dL Glucose 120 H (74-99) mg/dL Calcium 9.7 (8.4-10.2) mg/dL AST 34 (17-59) U/L ALT 27 (4-49) U/L Alkaline Phosphatase 82 (38-126) U/L Total Protein 6.9 (6.3-8.2) g/dL Albumin 4.4 (3.5-5.0) g/dL Current Medications Generic Name Dose Route Start Last Admin Trade Name Freq PRN Reason Stop Dose Admin Acetaminophen 650 mg 03/08/21 17:04 Acetaminophen Tab 325 Mg Tab PO Q6HR PRN Mild Pain or Fever > 100.5 Aspirin 81 mg 03/09/21 09:00 Aspirin 81 Mg PO DAILY [facility] Atorvastatin Calcium 40 mg 03/09/21 21:00 Atorvastatin 40 Mg Tab PO HS [facility] Sodium Chloride 1,000 mls @ 20 mls/hr 03/08/21 17:15 03/08/21 18:30 Saline 0.9% IV Not Given .Q24H [facility] Naloxone HCl 0.2 mg 03/08/21 17:04 Naloxone 0.4 Mg/Ml 1 Ml Vial IV Q2M PRN Opioid Reversal Ondansetron HCl 4 mg 03/08/21 17:04 Ondansetron 4 Mg/2 Ml Vial IVP Q8HR PRN Nausea And Vomiting Intake and Output 03/08/21 03/09/21 03/09/21 22:59 06:59 14:59 Other: Voiding Method Toilet Toilet Toilet # Voids 1 Weight 81.647 kg 80.9 kg 03/08/21 16:31 03/08/21 16:31
[2021-03-09 16:51] LABS: Glucose,Whole Blood 191 mg/dL (75-99)
[2021-03-09] MEDS: NICOTINE 21MG/24HR PATCH TRANSDERM SCH (17:36)
[2021-03-09] MEDS: ATORVASTATIN 80 MG TAB PO SCH (19:37)
[2021-03-09 20:37] LABS: Glucose,Whole Blood 177 mg/dL (75-99)
[2021-03-09] MEDS ORDERED: ATORVASTATIN 40 MG TAB PO SCH (21:00)
[2021-03-10 06:25] LABS: Glucose,Whole Blood 150 mg/dL (75-99)
[2021-03-10] MEDS: carvediloL 3.125 MG TAB PO SCH ×2 (06:40→17:57)
[2021-03-10] MEDS: INSULIN ASPART (NovoLOG) 100 UNIT/ML VIAL SQ SCH ×4 (06:40→20:17)
[2021-03-10] MEDS ORDERED: HEPARIN SODIUM 1,000 UN/ML (10ML VL) IV PRN (07:22)
[2021-03-10] MEDS: NICOTINE 21MG/24HR PATCH TRANSDERM SCH (08:03)
[2021-03-10] MEDS: ONDANSETRON 4 MG/2 ML VIAL IVP PRN (08:03)
[2021-03-10] MEDS: ASPIRIN 81 MG PO SCH (08:03)
[2021-03-10] MEDS: HEPARIN SOD,PORK IN 0.45% NACL 25,000 UNIT in 0.45% NACL 1 250ML.BAG IV SCH (08:03)
[2021-03-10] MEDS: lisinopriL 5 MG TAB PO SCH (08:03)
--- NOTE | 2021-03-10 08:07 | ECHOF ---
Referral Reason:stroke MEASUREMENTS -------- HEIGHT: 182.9 cm WEIGHT: 80.7 kg BP: IVSd: 0.8 cm (0.6 - 1.1) LVIDd: 4.3 cm (3.9 - 5.3) LVPWd: 1.3 cm (0.6 - 1.1) IVSs: 0.8 cm LVIDs: 3.2 cm LVPWs: 0.7 cm Ao Diam: 3.5 cm (2.0 - 3.7) AV Cusp: 2.6 cm (1.5 - 2.6) LA Diam: 2.6 cm (2.7 - 3.8) MV EXCURSION: 24.208 mm (> 18.000) MV EF SLOPE: 219 mm/s (70 - 150) EPSS: 4.9 cm MV E Christ: 0.68 m/s MV DecT: 197 ms MV A Christ: 0.96 m/s MV E/A Ratio: 0.71 RAP: 5.00 mmHg RVSP: 8.66 mmHg FINDINGS -------- Study with Definity did not reveal any evidence of apical clot apical call clot NO definite clot n oted in the LV This was a technically good study. The left ventricular size is normal. Left ventricular wall thickness is normal. Overall left vent ricular systolic function is mild-moderately impaired with, an EF between 40 - 45 %. Apical anterio r LV wall motion is hypokinetic. Apical lateral LV wall motion is hypokinetic. Apical septum LV wall motion is hypokinetic. The right ventricle is normal in size. The left atrial size is normal. Normal LA size by volume 22+/-6 ml/m2. The right atrial size is normal. Lumason used The aortic valve is trileaflet and appears structurally normal. The mitral valve is normal. There is trace mitral regurgitation. The tricuspid valve appears structurally normal. Trace tricuspid regurgitation present. Right padmini tricular systolic pressure is normal at < 35 mmHg. There is no pulmonic regurgitation present. The aortic root size is normal. Normal inferior vena cava with normal inspiratory collapse consistent with estimated right atrial pre ssure of 5 mmHg. There is no pericardial effusion. CONCLUSIONS -------- 1. Study with Definity did not reveal any evidence of apical clot apical call clot 2. The left ventricular size is normal. 3. Left ventricular wall thickness is normal. 4. Overall left ventricular systolic function is mild-moderately impaired with, an EF between 40 - 45 %. 5. Apical anterior LV wall motion is hypokinetic. 6. Apical lateral LV wall motion is hypokinetic. 7. Apical septum LV wall motion is hypokinetic. 8. There is trace mitral regurgitation. 9. Trace tricuspid regurgitation present. 10. There is no pericardial effusion. SKIP MINER: Adia Lu RDCS
[2021-03-10 08:31] LABS: Basophils % (A) 0 %; Eosinophils # (A) 0.2 k/uL (0-0.7); Eosinophils % (A) 2 %; HCT 46.7 % (39.0-53.0); HGB 16.5 gm/dL (13.0-17.5); Lymphocytes # (A) 2.1 k/uL (1.0-4.8); Lymphocytes % (A) 22 %; MCH 32.7 pg (25.0-35.0); MCHC 35.2 g/dL (31.0-37.0); Mean Platelet Volume 7.2; Monocytes # (A) 0.6 k/uL (0-1.0); Monocytes % (A) 6 %; Neutrophils # (A) 6.3 k/uL (1.3-7.7); Neutrophils % (A) 67 %; Platelet Count 345 k/uL (150-450); RBC 5.03 m/uL (4.30-5.90); RDW 12.5 % (11.5-15.5); WBC 9.3 k/uL (3.8-10.6)
[2021-03-10 08:40] LABS: Partial Thromboplastin Time 24.3 sec (22.0-30.0); Prothrombin Time 10.4 sec (9.0-12.0)
--- NOTE | 2021-03-10 11:18 | P.PN ---
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 Patient was evaluated in the emergency room, vital examination on presentation revealed a temperature of 98.8 pulse 108 respirations 16 blood pressure 114/85 pulse ox 99% on room air, white blood count 12.1 hemoglobin 16.1 platelet count 358 sodium 139 potassium 4.1 chloride 105 CO2 25 glucose 120 BUN 18 creatinine 1.21 troponin level was elevated at 4.5 computed tomography scan of the brain without contrast was done in the emergency room and was negative. CT angiogram of the neck and brain was negative patient was admitted to telemetry floor neurology consultation was requested also cardiology consultation was requested in regard to elevated troponin level. MRI of the brain was done and revealed evidence of 13 mm area of increased signal in the left posterior temporal lobe that could relate to an acute infarct. On 03/10/2021 Patient was seen and examined on the medical floor, he is alert and oriented x 3 in no distress, he denies any complaints there is no fever or chills no headache or dizziness no chest pain no shortness of breath no palpitation no cough no nausea or vomiting no abdominal pain no diarrhea no blood in the stools no burning with urination no frequency or urgency and no hematuria, there is no weakness or numbness in any of the extremities no change in vision speech or gait. At this time patient was started on IV heparin awaiting further recommendation from cardiology. Objective - Vital Signs Vital signs: Vital Signs Temp 97.8 F 03/09/21 23:07 Pulse 73 03/10/21 03:31 Resp 18 03/10/21 03:31 BP 126/82 03/10/21 03:31 Pulse Ox 97 03/10/21 03:31 Intake & Output 03/09/21 03/10/21 03/10/21 18:59 06:59 18:59 Intake Total 800 150 Balance 800 150 Weight 80.6 kg Intake: Oral 800 150 Other: Voiding Method Toilet Toilet # Voids 2 - Exam In general patient is alert and oriented x 3 in no distress HEENT head normocephalic and atraumatic Neck is supple no JVD no goiter no lymphadenopathy no carotid bruit Chest examination is clear to auscultation no crackles no wheezing Cardiac exam reveals regular heart sounds S1 and S2 no gallops no murmurs Abdomen is soft nontender no organomegaly with normal bowel sounds Extremity exam reveals no edema no cyanosis or clubbing Neurological examination reveals no gross focal deficits - Labs CBC & Chem 7: 03/10/21 08:08 03/08/21 16:31 Labs: Abnormal Lab Results - Last 24 Hours (Table) 03/09/21 03/09/21 03/09/21 Range/Units 08:37 11:48 11:52 POC Glucose (mg/dL) 176 H (75-99) mg/dL Troponin I 4.310 H* 4.050 H* (0.000-0.034) ng/mL 03/09/21 03/09/21 03/09/21 Range/Units 14:45 16:49 20:27 POC Glucose (mg/dL) 191 H 177 H (75-99) mg/dL Troponin I 4.020 H* (0.000-0.034) ng/mL 03/10/21 Range/Units 06:12 POC Glucose (mg/dL) 150 H (75-99) mg/dL Troponin I (0.000-0.034) ng/mL Assessment and Plan Plan: , 1. Acute ischemic stroke, with slurred speech and right upper extremity weakness and numbness, symptoms resolved, neurology consultation following awaiting further recommendation 2. Elevated troponin level, EKG revealing possible acute anteroseptal infarct cardiology consultation requested, IV heparin per protocol was started 3. Underlying history of hypertension 4. Underlying history of hyperlipidemia 5. Underlying history of tobacco abuse patient was counseled in length in regard to smoking cessation At this time patient is admitted to telemetry floor He was seen by neurology and was started on Plavix Cardiology consultation was requested and IV heparin was started in regard to elevated troponin Will follow closely
[2021-03-10 12:00] LABS: Glucose,Whole Blood 160 mg/dL (75-99)
--- NOTE | 2021-03-10 15:22 | P.PN ---
Subjective Progress Note Date: 03/10/21 Patient was seen at bedside and he stated that he feels well and denies any further neurological symptoms. Today early in the morning the patient was started on heparin drip. Objective - Vital Signs Vital signs: Vital Signs Temp 98.6 F 03/10/21 08:00 Pulse 70 03/10/21 08:00 Resp 18 03/10/21 03:31 BP 117/76 03/10/21 08:00 Pulse Ox 95 03/10/21 08:00 Intake & Output 03/09/21 03/10/21 03/10/21 18:59 06:59 18:59 Intake Total 800 150 60 Balance 800 150 60 Weight 80.6 kg Intake: Intake, IV Titration 60 Amount Heparin Sod,Pork in 0.45% 20 NaCl 25,000 unit In 0.45 % NaCl 1 250ml.bag @ 18 UNITS/KG/HR 14.508 mls/hr IV .[id number] [facility] Rx#: [id number] Sodium Chloride 0.9% 1, 40 000 ml @ 20 mls/hr IV . Q24H [facility] Rx#:[id number] Oral 800 150 Other: Voiding Method Toilet Toilet # Voids 2 - Exam GENERAL: The patient is lying in bed and is not in acute distress. NEUROLOGICAL: Higher mental function: The patient is awake, alert, oriented to self, place and time. Patient is following commands. No aphasia and no neglect. Cranial nerves: The pupils are round, equal and reactive to light and accommodation. Visual monge are full to confrontation throughout. Extraocular movement is intact no nystagmus is noted. Facial sensation is normal to touch throughout. The facial strength is normal throughout. Hearing is normal bilaterally to hand rub. Tongue is midline and moved [id number] without any difficulty. No dysarthria is noted. Shoulder shrug is normal bilaterally. Motor: Gait is deferred. The strength is 5 over 5 throughout. Normal tone and bulk. Cerebellum: Normal finger to nose heel to chin bilaterally. Sensation: Sensation is normal to touch throughout. Reflexes (right/left): 2+ throughout. Plantars are downgoing bilaterally. - Labs CBC & Chem 7: 03/10/21 08:08 03/08/21 16:31 Labs: Abnormal Lab Results - Last 24 Hours (Table) 03/09/21 03/09/21 03/09/21 Range/Units 14:45 16:49 20:27 POC Glucose (mg/dL) 191 H 177 H (75-99) mg/dL Troponin I 4.020 H* (0.000-0.034) ng/mL 03/10/21 03/10/21 Range/Units 06:12 11:53 POC Glucose (mg/dL) 150 H 160 H (75-99) mg/dL Troponin I (0.000-0.034) ng/mL Assessment and Plan Assessment: Acute ischemic stroke (Symptoms of Transient aphasia, dysarthria, right sided weakness). With MRI Brain reported as area of increased signal on the diffusion images left posterior temporal lobe. Initially NIH 13 that improved to 0. No tpa since resolution of symptoms. Seem due to cardioembolic. Hypokinetic of left ventricular wall of heart Elevated troponin Diabetes mellitus Hyperlipidemia Hypertension Tobacco use (1/2 PPD for years) Plan: * NIH stroke scale was 13 and was significantly improved down to a 2-3 in which she remained to be mildly dysarthric and unable to repeat phrases. * CT of the head is reported as negative unenhanced head CT scan. * CT angiography of the head and neck was reported as negative CT angiography of the head and neck. * MRI the brain is reported as 13 mm area of increased signal on the diffusion images left posterior temporal lobe could relate to an acute infarct. * Lipid panel: Triglyceride of 118, cholesterol of 171, LDL 101, HDL 46. LDL goal <70 in stroke. * TSH: 2.65 (normal) * EEG on 03/09/2021 (stroke attending wanted seizure to be rule out and relayed it to ED team): Preliminary read. Is normal. There are no focal slowing, epileptiform discharges or seizure on the EEG. * 2-D echo was reported as study with definitely did not reveal any evidence of apical clot. Left ventricle wall thickness is normal. Overall left ventricular systolic function is mild to moderate impaired with ejection fraction of 40-45%. Apical anterior left ventricle wall motion is hypokinetic. Apical lateral left ventricular wall motion is hypokinetic. Apical septal left ventricle wall motion is hypokinetic. * Continue aspirin 81 mg daily. The patient was started on heparin drip today in the morning for the hypokinetic wall abnormality. Avoid boluses and keep PTT between 45-60. * Continue Lipitor 80mg daily for secondary stroke prophylaxis. * Continue continous cardiac monitoring. * PT, OT and GRAPE CRUSHER are consulted * Continue Q4 hour neuro checks. * Cardiology team is on board. * The patient was counseled on tobacco cessation. Will defer the rest of the medical management to the primary team. The plan was discussed with the patient's nurse. Dr. Gurrola will take over neurology coverage starting tomorrow (03/11/01) AM. Marin Grady MD Neuro-Hospitalist Time with Patient: Less than 30
[2021-03-10 17:05] LABS: Glucose,Whole Blood 150 mg/dL (75-99)
[2021-03-10] MEDS: SODIUM CHLORIDE 0.9% 1,000 ML IV SCH (17:57)
--- NOTE | 2021-03-10 18:48 | EEG ---
ELECTROENCEPHALOGRAM REPORT DATE OF SERVICE: 03/09/2021. CLINICAL HISTORY: This is a 56-year-old gentleman who presented for difficulty getting his words out and right hand weakness. This video EEG is obtained to evaluate for seizure epileptiform activity. RELEVANT MEDICATION: The patient is not on any antiepileptic drug. EEG TYPE: A routine 21 channel EEG is performed with video using the 10/20 electrode placement system. DESCRIPTION: Wakefulness is only obtained. During wakefulness state, there is a posterior dominant rhythm of low to moderate voltage, reactive, well modulated, of 10 hertz activity. There is no sleep architecture seen during the study. There is no focal slowing. Interictal and ictal is none. ACTIVATION PROCEDURE: Photic stimulation did not evoke a posterior driving response. Hyperventilation is not performed. CLINICAL INTERPRETATION: This is a normal routine EEG. There are no focal slowing, epileptiform discharges or seizure on the EEG. Clinical correlation is recommended. SERGEI / JOJO: [id number] / [id number]
--- NOTE | 2021-03-10 19:33 | P.PN ---
Subjective Progress Note Date: 03/10/21 This patient is admitted to hospital with TIA-like symptoms with visual disturbance and weakness. Patient has recovered. His troponins are suggestive of subacute MT. Echo Cardigan showed hypokinesis of the anteroapical wall. Patient is initiated on heparin for suspicion he may have had apical thrombus. Repeat echo study with contrast, did not reveal definite clot. Patient is otherwise clinically stable. Patient is advised to have cardiac catheterization because of abnormal echo Cardec gram size to of recent MT. Otherwise patient is critically stable. A mini also need a CHRISTIE examination. Meanwhile we'll continue with anti-cognition therapy. Patient and family were explained the risks and benefits of the procedure Objective - Vital Signs Vital signs: Vital Signs Temp 98.6 F 03/10/21 08:00 Pulse 76 03/10/21 16:00 Resp 18 03/10/21 03:31 BP 126/78 03/10/21 16:00 Pulse Ox 96 03/10/21 16:00 Intake & Output 03/10/21 03/10/21 03/11/21 06:59 18:59 06:59 Intake Total 150 605 Balance 150 605 Weight 80.6 kg Intake: Intake, IV Titration 365 Amount Heparin Sod,Pork in 0.45% 165 NaCl 25,000 unit In 0.45 % NaCl 1 250ml.bag @ 18 UNITS/KG/HR 14.508 mls/hr IV .[id number] [facility] Rx#: [id number] Sodium Chloride 0.9% 1, 200 000 ml @ 20 mls/hr IV . Q24H [facility] Rx#:[id number] Oral 150 240 Other: Voiding Method Toilet # Voids 2 - Exam GENERAL EXAM: Patient is alert and oriented and doesn't appear to be in any acute distress HEENT: Normocephalic. Normal reaction of pupils, equal size, normal range of extraocular motion. No erythema or exudates in the throat. NECK: No masses, no nuchal rigidity. CHEST: No chest wall deformity. LUNGS: [Equal air entry with no crackles or wheeze.] HEART: [S1 and S2 normal with no audible mumurs or gallops. Regular rhythm, femorals equal on both sides..] ABDOMEN: No hepatosplenomegaly, normal bowel sounds, no guarding or rigidity. SKIN: No rashes CENTRAL NERVOUS SYSTEM: No focal deficits. EXTREMITIES: [No cyanosis, clubbing or edema.] - Labs CBC & Chem 7: 03/10/21 08:08 03/08/21 16:31 Labs: Abnormal Lab Results - Last 24 Hours (Table) 03/09/21 03/10/21 03/10/21 Range/Units 20:27 06:12 11:53 POC Glucose (mg/dL) 177 H 150 H 160 H (75-99) mg/dL 03/10/21 Range/Units 17:03 POC Glucose (mg/dL) 150 H (75-99) mg/dL Assessment and Plan (1) CAD (coronary artery disease) Current Visit: Yes Status: Acute Code(s): I25.10 - ATHSCL HEART DISEASE OF [place] CORONARY ARTERY W/O ANG PCTRS SNOMED Code(s): 64391819 (2) Cerebrovascular accident (CVA) Current Visit: Yes Status: Acute Code(s): I63.9 - CEREBRAL INFARCTION, UNSPECIFIED SNOMED Code(s): 802550259 (3) Hyperlipidemia Current Visit: No Status: Acute Code(s): E78.5 - HYPERLIPIDEMIA, UNSPECIFIED SNOMED Code(s): 56956174 (4) Hypertension Current Visit: No Status: Acute Code(s): I10 - ESSENTIAL (PRIMARY) HYPERTENSION SNOMED Code(s): 57904335 (5) Type 2 diabetes mellitus Current Visit: No Status: Acute Code(s): E11.9 - TYPE 2 DIABETES MELLITUS WITHOUT COMPLICATIONS SNOMED Code(s): 84855749 (6) Ischemic cardiomyopathy Current Visit: Yes Status: Acute Code(s): I25.5 - ISCHEMIC CARDIOMYOPATHY SNOMED Code(s): 626559107 Plan: Continue current medical therapy. Cardiac cath patient tomorrow. Long-term anticoagulation after cardiac catheterization. May need a CHRISTIE also
[2021-03-10 20:10] LABS: Glucose,Whole Blood 186 mg/dL (75-99)
[2021-03-10] MEDS: ATORVASTATIN 80 MG TAB PO SCH (20:17)
[2021-03-11] MEDS: HEPARIN SOD,PORK IN 0.45% NACL 25,000 UNIT in 0.45% NACL 1 250ML.BAG IV SCH (00:50)
[2021-03-11 03:14] LABS: Basophils # (A) 0.1 k/uL (0-0.2); Basophils % (A) 1 %; Eosinophils # (A) 0.2 k/uL (0-0.7); Eosinophils % (A) 2 %; HCT 53.9 % (39.0-53.0); HGB 17.3 gm/dL (13.0-17.5); Lymphocytes # (A) 3.9 k/uL (1.0-4.8); Lymphocytes % (A) 35 %; MCH 30.6 pg (25.0-35.0); MCV 95.6 fL (80.0-100.0); Mean Platelet Volume 7.2; Monocytes # (A) 0.7 k/uL (0-1.0); Monocytes % (A) 6 %; Neutrophils % (A) 54 %; Platelet Count 308 k/uL (150-450); RBC 5.64 m/uL (4.30-5.90); RDW 13.2 % (11.5-15.5); WBC 11.1 k/uL (3.8-10.6)
[2021-03-11 03:44] LABS: ALT 33 U/L (4-49); African American GFR (CKD) >90 (>60 ml/min/1.73 sqM); Albumin 4.2 g/dL (3.5-5.0); Anion Gap 9 mmol/L; Blood Urea Nitrogen 18 mg/dL (9-20); Carbon Dioxide 22 mmol/L (22-30); Chloride 107 mmol/L (98-107); Glucose 143 mg/dL (74-99); Non-African American GFR(CKD) >90 (>60 ml/min/1.73 sqM); Sodium 138 mmol/L (137-145); Total Bilirubin 0.6 mg/dL (0.2-1.3); Total Protein 7.1 g/dL (6.3-8.2)
[2021-03-11 04:11] LABS: AST 37 U/L (17-59); Alkaline Phosphatase 74 U/L (38-126); Potassium 4.8 mmol/L (3.5-5.1)
[2021-03-11] MEDS ORDERED: NITROGLYCERIN SL TABS 0.4 MG TAB SUBLINGUAL PRN ×2 (05:06→13:33)
[2021-03-11] MEDS ORDERED: ALPRAZolam 0.5 MG TAB PO PRN (05:06)
[2021-03-11] MEDS ORDERED: ALPRAZolam 0.25 MG TAB PO PRN (05:06)
[2021-03-11] MEDS ORDERED: SODIUM CHLORIDE 0.9% 1,000 ML in EMPTY BAG 1 BAG IV ONE (05:06)
[2021-03-11] MEDS ORDERED: ASPIRIN 325 MG TAB PO STA (05:06)
[2021-03-11] MEDS ORDERED: ATORVASTATIN 80 MG TAB PO STA (05:06)
[2021-03-11] MEDS: INSULIN ASPART (NovoLOG) 100 UNIT/ML VIAL SQ SCH ×4 (06:04→20:43)
[2021-03-11] MEDS: carvediloL 3.125 MG TAB PO SCH ×2 (06:13→17:35)
[2021-03-11 06:41] LABS: Glucose,Whole Blood 157 mg/dL (75-99)
[2021-03-11] MEDS: lisinopriL 5 MG TAB PO SCH (09:00)
[2021-03-11] MEDS: NICOTINE 21MG/24HR PATCH TRANSDERM SCH (09:00)
[2021-03-11] MEDS: ONDANSETRON 4 MG/2 ML VIAL IVP PRN (09:00)
[2021-03-11 11:50] LABS: Glucose,Whole Blood 156 mg/dL (75-99)
[2021-03-11] MEDS ORDERED: LIDOCAINE 1% INJ 10MG/ML (20 ML MDV) ONE (12:18)
[2021-03-11] MEDS ORDERED: VERAPAMIL 2.5 MG/ML 2 ML AMP ONE (12:18)
[2021-03-11] MEDS ORDERED: fentaNYL (PF) 50 MCG/ML 2 ML AMP ONE (12:19)
[2021-03-11] MEDS ORDERED: MIDAZOLAM 2 MG/2 ML VIAL IV ONE (12:29)
[2021-03-11] MEDS ORDERED: fentaNYL (PF) 50 MCG/ML 2 ML AMP IV ONE (12:29)
[2021-03-11] MEDS ORDERED: IV FLUID CONTINUATION 1,000 ML IV ONE (12:31)
[2021-03-11] MEDS: LIDOCAINE 1% INJ 10MG/ML (20 ML MDV) SQ ONE ×2 (12:31→12:41)
[2021-03-11] MEDS ORDERED: CLOPIDOGREL 75 MG TAB ONE (13:00)
[2021-03-11] MEDS ORDERED: CLOPIDOGREL 75 MG TAB PO ONE (13:02)
--- NOTE | 2021-03-11 13:03 | P.CARDCATH ---
Date of Procedure: 03/11/21 Preoperative Diagnosis: This is a 56-year-old gentleman with history of diabetes, hypertension and hypercholesterolemia who presented to the hospital with symptoms of TIA with visual disturbances and right arm weakness. Patient recovered completely. However his cardiac enzyme studies showed elevation of troponin consistent with subacute [place]. Echocardiogram showed hypokinesis of the anteroapical wall. Patient is advised to have a cardiac catheterization for definitive diagnosis. Postoperative Diagnosis: Subtotal occlusion of the mid LAD. Diffuse disease involving the distal RCA Procedure(s) Performed: Left heart catheterization without left ventriculography Description of Procedure: HISTORY: This is a 56-year-old gentleman who was admitted to the hospital with TIA-like symptoms and evidence of subacute VA. Echo Cardigan showed hypokinesis of the anteroapical wall. Patient is advised to have a cardiac catheterization. CONSENT:I have discussed the risks, benefits and alternative therapies for the above-mentioned procedure and for both sedation/analgesia as well as necessary blood product administration, if indicated, as they pertain to this patient. The patient has indicated understanding and acceptance of the risks and procedures discussed. PROCEDURE: Patient was brought to the lab in a fasting state. Patient was given some IV sedation. Attempts were made to the right radial approach. we'll zaki ry could not be cannulated. procedure is done from the right groin. The right groin is infiltrated with lidocaine and right femoral artery was entered using Seldinger technique. A 6-Kazakh catheter was left in place and selective coronary arteriography and left ventriculography was performed. Patient tolerated the procedure well. Patient is found to have a critical lesion in the mid LAD. He went on to have stent placement by Dr. To Conscious Sedation: Versed 1mg Fentanyl 50 g Duration 21minutes HEMODYNAMICS: The aortic pressure 104/55. Left ventricular end-diastolic pressure was not measured SELECTIVE CORONARY ARTERIOGRAPHY: LEFT MAIN: Normal length and patent THE LEFT ANTERIOR DESCENDING CORONARY ARTERY:. Good caliber vessel giving rise to small first diagonal and good-sized second diagonal. First diagonal branch is moderate to severe disease. Following that patient has 99 200% stenosis of the mid LAD . The second diagonal and large caliber and free of occlusive disease. The distal LAD is free of occlusive disease THE LEFT CIRCUMFLEX AND IS CORONARY ARTERY:. This is a good caliber vessel giving rise to good-sized PLV branch. The circumflex coronary artery and branches are free of occlusive disease THE RIGHT CORONARY ARTERY:. This is a good caliber vessel giving rise to PDA and PLV branches. This is dominant in distribution. There is diffuse plaque involving the PDA and PLV with noncritical stenosis LEFT VENTRICULOGRAPHY: Not performed FINAL IMPRESSION: Near total occlusion of the mid LAD. Significant disease involving the first diagonal which is small in caliber. Diffuse disease involving the PDA and PLV PLAN: Proceed with stent placement of the mid deciding, being done by Dr. To PROGNOSIS: Guarded
[2021-03-11] MEDS ORDERED: NITROGLYCERIN 1000MCG/10ML SYRINGE INTRACORON ONE ×2 (13:07→13:11)
[2021-03-11] MEDS ORDERED: IOPAMIDOL-370 125ML BTL INJ ONE (13:14)
[2021-03-11] MEDS ORDERED: IOPAMIDOL-370 100ML BTL INJ ONE (13:31)
[2021-03-11] MEDS ORDERED: MAG HYDROX/AL HYDROX/SIMETH 30 ML CUP PO PRN (13:33)
[2021-03-11] MEDS ORDERED: ZOLPIDEM 5 MG TAB PO PRN (13:33)
[2021-03-11] MEDS ORDERED: ATROPINE SULFATE 0.1 MG/ML 10ML SYRINGE IV PRN (13:33)
[2021-03-11] MEDS ORDERED: RX INFO: IV CONTRAST WAS GIVEN 1 EACH MISC MISCELLANE PRN (13:33)
[2021-03-11] MEDS ORDERED: SODIUM CHLORIDE 0.9% 1,000 ML IV SCH (13:45)
[2021-03-11 14:02] VITALS: BMI 23.0
[2021-03-11] MEDS: SPIRONOLACTONE 25 MG TAB PO SCH (14:13)
[2021-03-11] MEDS: traMADol 50 MG TAB PO PRN ×2 (15:27→23:11)
--- NOTE | 2021-03-11 15:40 | LTR ---
March 11, 2021 Re: Carlie Bay Dear Dr. Arzate: I had the opportunity to perform coronary angioplasty and stenting on Mr. Bay at [facility] on the 11 of March and a full copy of the procedure note will be forwarded to you. In brief, he underwent successful stenting of the mid LAD. I am hopeful that this procedure will stabilize his status. Thank you again for allowing me the opportunity to participate in his care. Please feel free to call for any questions. Sincerely yours, Francia To MD MMJOSEPL / ABURIEN: [id number] /
--- NOTE | 2021-03-11 15:40 | PTCA ---
PERCUTANEOUSTRANS CORORONARY ANGIOGRAPHY Mr. Bay is a 56-year-old male who presented with TIA-like symptoms and had troponin elevation with segmental wall motion abnormality on his echocardiogram, underwent cardiac catheterization by Dr. Beltran, was found to have subtotally occluded mid LAD. In view of that, recommendation was made regarding angioplasty and stenting. The procedure as well as the risks and the complications were discussed with the patient who is in full understanding and agreement. PROCEDURE: A 6-English FR4 guiding catheter was introduced in the system. After cannulating the left main a 0.014 balanced medium weight J-wire was advanced across the lesion, positioned distally then a 3.0 x 28 mm Xience Yi stent was advanced, deployed and post dilated at 16 atmospheres. After the last inflation, after appropriate wait, the balloon and the guidewire were withdrawn back in the guiding catheter. Images were obtained and repeated. Those images reveal stable successful stenting. At that point, the guiding catheter, the balloon and the guide wire removed. The sheath was removed. Hemostasis was obtained with deployment of an Angio-Seal. There was no immediate complication. Patient was returned to his room in stable condition. Of note, the patient received 8000 units of intravenous heparin. His ACT was followed. He had no EKG changes or chest pain with the inflation. He received an oral loading dose of clopidogrel. RESULTS: Successful stenting of the mid LAD with reduction of stenosis from 99% to 0%. RECOMMENDATION: Patient will be continued on aspirin, Plavix, DONI inhibitor, beta damaris, and statin. Because of his presentation and possible embolic phenomenon, he will be started probably tomorrow on an anticoagulation and subsequently his aspirin can be stopped in 1 week. Those findings and recommendations were discussed with the patient his family and are in full understanding and agreement. MMODL / IJN: [id number] /
[2021-03-11 17:06] LABS: Glucose,Whole Blood 181 mg/dL (75-99)
[2021-03-11] MEDS: SODIUM CHLORIDE 0.9% 1,000 ML IV SCH (17:35)
--- NOTE | 2021-03-11 17:51 | P.PN ---
Subjective Progress Note Date: 03/11/21 Patient was seen by Dr. Marin Grady in consultation. Please refer to his note for details. Came to see patient for a follow-up. Patient had some chest pain last Thursday on 03/06/2021, that lasted for couple hours. He developed acute stroke symptoms on Thursday03/08/2021 when he couldn't feel his right hand, couldn't talk, nothing come out right. He also had blurred vision on the right side. His visual symptoms resolved first, then the head weakness and finally the speech. Overall symptoms lasted for 3 hours. Patient is a 56-year-old male came to the hospital for CVA, slurred speech. Patient's NIH stroke scale was 13 on arrival. Patient symptoms resolved. He was considered not a candidate for TPA. At present he feels fine. Patient had undergone cardiac catheterization underwent stenting in the LAD. Patient has tobacco use of half pack per day for 40 years, diabetes for 8-9 years, hyperlipidemia. Patient does not take any antiplatelet medication at home. Objective - Vital Signs Vital signs: Vital Signs Temp 98.2 F 03/11/21 08:00 Pulse 64 03/11/21 11:48 Resp 16 03/11/21 14:03 BP 121/73 03/11/21 14:03 Pulse Ox 98 03/11/21 14:03 Intake & Output 03/10/21 03/11/21 03/11/21 18:59 06:59 18:59 Intake Total 605 299.945 362 Balance 605 299.945 362 Weight 81.3 kg 81.3 kg Intake: IV 200 Intake, IV Titration 365 299.945 162 Amount Heparin Sod,Pork in 0.45% 165 299.945 NaCl 25,000 unit In 0.45 % NaCl 1 250ml.bag @ 18 UNITS/KG/HR 14.508 mls/hr IV .[id number] [facility] Rx#: [id number] Sodium Chloride 0.9% 1, 200 000 ml @ 20 mls/hr IV . Q24H [facility] Rx#:[id number] Sodium Chloride 0.9% 1, 162 000 ml In Empty Bag 1 bag @ 1 ML/KG/HR 80.6 mls/hr IV .[id number] [facility] Rx#: [id number] Oral 240 Other: Voiding Method Toilet Urinal # Voids 1 - Exam Patient is middle aged male, in no acute distress. Patient is alert awake oriented to time place and person. Speech and language functions are normal. Attention, concentration and fund of knowledge is adequate. On cranial examination, pupils are round and reacting to light, visual monge are full on confrontation, extraocular muscles are intact with no nystagmus. Face is symmetric, tongue protrudes to the midline. Palatal elevation and sensation normal, hearing and shoulder shrug normal, facial sensation normal. Shoulder shrug normal. On muscle strength testing, there is no pronator drift and the strength is normal in arms and legs distally and proximally. Deep tendon reflexes are 1+, and plantars are possibly upgoing bilaterally. Sensory to touch is equal with no neglect. Cerebellar function showed no ataxia for [id number] testing. No dysdiadochokinesia. Tone and bulk of muscles normal. Gait deferred, as patient just had cardiac cath. On general examination, there is no carotid bruit or murmur, S1-S2 audible. Abdomen is soft nontender. Chest is clear. Peripheral pulses are present. No edema. - Labs CBC & Chem 7: 03/11/21 02:27 03/11/21 02:27 Labs: Abnormal Lab Results - Last 24 Hours (Table) 03/10/21 03/11/21 03/11/21 Range/Units 20:04 02:27 02:27 WBC 11.1 H (3.8-10.6) k/uL Hct 53.9 H (39.0-53.0) % APTT (22.0-30.0) sec Glucose 143 H (74-99) mg/dL POC Glucose (mg/dL) 186 H (75-99) mg/dL 03/11/21 03/11/21 03/11/21 Range/Units 02:37 06:30 09:39 WBC (3.8-10.6) k/uL Hct (39.0-53.0) % APTT 37.9 H 49.9 H (22.0-30.0) sec Glucose (74-99) mg/dL POC Glucose (mg/dL) 157 H (75-99) mg/dL 03/11/21 03/11/21 Range/Units 11:37 17:05 WBC (3.8-10.6) k/uL Hct (39.0-53.0) % APTT (22.0-30.0) sec Glucose (74-99) mg/dL POC Glucose (mg/dL) 156 H 181 H (75-99) mg/dL Assessment and Plan Assessment: * Clinical TIA manifesting with transient slurred speech, difficulty speaking, right hand weakness and blurred vision, that resolved in 3 hours. MRI showed evidence of an acute ischemic stroke in the left posterior temporal lobe. The CVA is most likely embolic in nature. Current NIH stroke scale is 0. * Hypertension * Diabetes * Tobacco use have PPD for 40 years * Coronary artery disease, status post cardiac stenting in LAD today. Plan: * Patient underwent cardiac catheterization today, and underwent angioplasty and placement of a stent. Patient's heparin has been discontinued. * Patient was noted on Plavix 600 mg today by cardiology. Patient placed on dual antiplatelet medications including aspirin 325 mg and Plavix 75 mg. * Hemoglobin A1c 7.7 on 09/27/2019. We will repeat A1c. * Lipid panel with cholesterol 171, LDL 101, HDL 46 and triglycerides 118. Continue Lipitor 80 mg. * 2-D echo revealed normal left-ventricular size. Left ventricle systolic function is mild to moderately impaired with EF 40-45%. Apical anterior, apical lateral, apical septum left-ventricular wall motion are hypokinetic. * CTA of head and neck negative for any stenosis or occlusion. * We will discuss with cardiology if patient would need CHRISTIE, as the stroke appears embolic in nature, and the patient has abnormal 2-D echo.
--- NOTE | 2021-03-11 19:22 | P.PN ---
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 Patient was evaluated in the emergency room, vital examination on presentation revealed a temperature of 98.8 pulse 108 respirations 16 blood pressure 114/85 pulse ox 99% on room air, white blood count 12.1 hemoglobin 16.1 platelet count 358 sodium 139 potassium 4.1 chloride 105 CO2 25 glucose 120 BUN 18 creatinine 1.21 troponin level was elevated at 4.5 computed tomography scan of the brain without contrast was done in the emergency room and was negative. CT angiogram of the neck and brain was negative patient was admitted to telemetry floor neurology consultation was requested also cardiology consultation was requested in regard to elevated troponin level. MRI of the brain was done and revealed evidence of 13 mm area of increased signal in the left posterior temporal lobe that could relate to an acute infarct. On 03/10/2021 Patient was seen and examined on the medical floor, he is alert and oriented x 3 in no distress, he denies any complaints there is no fever or chills no headache or dizziness no chest pain no shortness of breath no palpitation no cough no nausea or vomiting no abdominal pain no diarrhea no blood in the stools no burning with urination no frequency or urgency and no hematuria, there is no weakness or numbness in any of the extremities no change in vision speech or gait. At this time patient was started on IV heparin awaiting further recommendation from cardiology. On 03/11/2021 Patient was seen and examined on the medical floor, he is alert and oriented x 3 in no distress, he denies any complaints there is no fever or chills no headache or dizziness no chest pain no shortness of breath no palpitation no cough no nausea or vomiting no abdominal pain no diarrhea no blood in the stools no burning with urination no frequency or urgency and no hematuria, there is no weakness or numbness in any of the extremities no change in vision speech or gait. At this time patient underwent cardiac cath today and had angioplasty and stent placement. Objective - Vital Signs Vital signs: Vital Signs Temp 98.2 F 03/11/21 08:00 Pulse 64 03/11/21 11:48 Resp 16 03/11/21 11:48 BP 120/86 03/11/21 11:48 Pulse Ox 98 03/11/21 11:48 Intake & Output 03/10/21 03/11/21 03/11/21 18:59 06:59 18:59 Intake Total 605 299.945 362 Balance 605 299.945 362 Weight 81.3 kg Intake: IV 200 Intake, IV Titration 365 299.945 162 Amount Heparin Sod,Pork in 0.45% 165 299.945 NaCl 25,000 unit In 0.45 % NaCl 1 250ml.bag @ 18 UNITS/KG/HR 14.508 mls/hr IV .[id number] [facility] Rx#: [id number] Sodium Chloride 0.9% 1, 200 000 ml @ 20 mls/hr IV . Q24H [facility] Rx#:[id number] Sodium Chloride 0.9% 1, 162 000 ml In Empty Bag 1 bag @ 1 ML/KG/HR 80.6 mls/hr IV .[id number] [facility] Rx#: [id number] Oral 240 Other: Voiding Method Toilet Toilet # Voids 1 - Exam In general patient is alert and oriented x 3 in no distress HEENT head normocephalic and atraumatic Neck is supple no JVD no goiter no lymphadenopathy no carotid bruit Chest examination is clear to auscultation no crackles no wheezing Cardiac exam reveals regular heart sounds S1 and S2 no gallops no murmurs Abdomen is soft nontender no organomegaly with normal bowel sounds Extremity exam reveals no edema no cyanosis or clubbing Neurological examination reveals no gross focal deficits - Labs CBC & Chem 7: 03/11/21 02:27 03/11/21 02:27 Labs: Abnormal Lab Results - Last 24 Hours (Table) 03/10/21 03/10/21 03/11/21 Range/Units 17:03 20:04 02:27 WBC 11.1 H (3.8-10.6) k/uL Hct 53.9 H (39.0-53.0) % APTT (22.0-30.0) sec Glucose (74-99) mg/dL POC Glucose (mg/dL) 150 H 186 H (75-99) mg/dL 03/11/21 03/11/21 03/11/21 Range/Units 02:27 02:37 06:30 WBC (3.8-10.6) k/uL Hct (39.0-53.0) % APTT 37.9 H (22.0-30.0) sec Glucose 143 H (74-99) mg/dL POC Glucose (mg/dL) 157 H (75-99) mg/dL 03/11/21 03/11/21 Range/Units 09:39 11:37 WBC (3.8-10.6) k/uL Hct (39.0-53.0) % APTT 49.9 H (22.0-30.0) sec Glucose (74-99) mg/dL POC Glucose (mg/dL) 156 H (75-99) mg/dL Assessment and Plan Plan: , 1. Acute ischemic stroke, with slurred speech and right upper extremity weakness and numbness, symptoms resolved, neurology consultation following awaiting further recommendation 2. Acute anteroseptal myocardial infarct cardiology consultation requested, IV heparin per protocol was started 3. Underlying history of hypertension 4. Underlying history of hyperlipidemia 5. Underlying history of tobacco abuse patient was counseled in length in regard to smoking cessation At this time patient is admitted to telemetry floor He was seen by neurology and was started on Plavix Cardiology consultation was requested and IV heparin was started in regard to elevated troponin Will follow closely
[2021-03-11 20:39] LABS: Glucose,Whole Blood 221 mg/dL (75-99)
[2021-03-12 06:27] LABS: Glucose,Whole Blood 155 mg/dL (75-99)
[2021-03-12] MEDS: carvediloL 3.125 MG TAB PO SCH (06:33)
[2021-03-12] MEDS: INSULIN ASPART (NovoLOG) 100 UNIT/ML VIAL SQ SCH ×2 (06:34→12:05)
[2021-03-12] MEDS ORDERED: HEPARIN SODIUM,PORCINE 2,500 UNIT in SODIUM CHLORIDE 0.9% 250 ML IRRIGATION PRN (07:00)
[2021-03-12] MEDS ORDERED: HEPARIN SODIUM,PORCINE 10,000 UNIT in SODIUM CHLORIDE 0.9% 1,000 ML IRRIGATION PRN (07:00)
[2021-03-12 07:55] VITALS: RESP 16
[2021-03-12] MEDS: SPIRONOLACTONE 25 MG TAB PO SCH (07:55)
[2021-03-12] MEDS: lisinopriL 5 MG TAB PO SCH (07:55)
[2021-03-12] MEDS: NICOTINE 21MG/24HR PATCH TRANSDERM SCH (07:56)
[2021-03-12] MEDS: ONDANSETRON 4 MG/2 ML VIAL IVP PRN (07:57)
[2021-03-12 08:39] LABS: Basophils # (A) 0.1 k/uL (0-0.2); Basophils % (A) 1 %; Eosinophils # (A) 0.2 k/uL (0-0.7); Eosinophils % (A) 2 %; HCT 52.9 % (39.0-53.0); HGB 18.6 gm/dL (13.0-17.5); Lymphocytes % (A) 26 %; MCH 32.8 pg (25.0-35.0); MCHC 35.2 g/dL (31.0-37.0); MCV 93.2 fL (80.0-100.0); Monocytes # (A) 0.8 k/uL (0-1.0); Monocytes % (A) 7 %; Neutrophils % (A) 62 %; Platelet Count 338 k/uL (150-450); RBC 5.67 m/uL (4.30-5.90); RDW 12.6 % (11.5-15.5); WBC 11.3 k/uL (3.8-10.6)
[2021-03-12] MEDS ORDERED: lisinopriL 5 MG TAB PO SCH (09:00)
[2021-03-12] MEDS ORDERED: ASPIRIN 81 MG PO SCH ×3 (09:00)
[2021-03-12] MEDS ORDERED: APIXABAN 5 MG TAB PO SCH (09:00)
[2021-03-12 09:05] LABS: ALT 37 U/L (4-49); AST 36 U/L (17-59); African American GFR (CKD) >90 (>60 ml/min/1.73 sqM); Albumin 4.5 g/dL (3.5-5.0); Alkaline Phosphatase 86 U/L (38-126); Anion Gap 10 mmol/L; Blood Urea Nitrogen 19 mg/dL (9-20); Calcium 10.2 mg/dL (8.4-10.2); Carbon Dioxide 25 mmol/L (22-30); Chloride 103 mmol/L (98-107); Glucose 186 mg/dL (74-99); Non-African American GFR(CKD) 84 (>60 ml/min/1.73 sqM); Potassium 5.6 mmol/L (3.5-5.1); Sodium 138 mmol/L (137-145); Total Bilirubin 0.8 mg/dL (0.2-1.3); Total Protein 7.5 g/dL (6.3-8.2)
[2021-03-12 12:15] VITALS: BP 153/103; PULSE 75; TEMP 97.3
--- NOTE | 2021-03-12 16:25 | P.PN ---
Progress Note - Text This is a 56-year-old gentleman with history of diabetes, hypertension and hypercholesterolemia who presented to the hospital with symptoms of TIA with visual disturbances and right arm weakness. Patient recovered completely. However his cardiac enzyme studies showed elevation of troponin consistent with subacute [place]. Echocardiogram showed hypokinesis of the anteroapical wall. Patient underwent cardiac catheterization by Dr. Beltran was found to have subtotally occluded mid LAD. It was recommended angioplasty and stenting. Patient underwent successful stent in the mid LAD on 03/11. Patient will be continued on aspirin, Plavix, DONI inhibitor, beta damaris and statin. Because of his presentation and possible embolic phenomenon started on Eliquis 5 mg twice a day, subsequently his aspirin can be stopped in 1 week. Patient stable for discharge from cardiology perspective. Patient was discharged prior to assessing patient. Patient to follow up with Dr. Beltran within 1 week
[2021-03-12 17:37] LABS: Hemoglobin A1C 7.4 % (4.0-6.0)
[2021-03-12] MEDS ORDERED: ATORVASTATIN 80 MG TAB PO SCH (21:00)
[2021-03-13] MEDS ORDERED: CLOPIDOGREL 75 MG TAB PO SCH (09:00)
--- NOTE | 2021-03-20 11:03 | P.DS ---
Providers Date of admission: 03/08/21 17:04 Expected date of discharge: 03/12/21 Attending physician: Uriel Arzate Consults: 03/08/21 17:04 Consult Physician Routine Consulting Provider: Marin Grady Consult Reason/Comments: cva Do you want consulting provider notified?: Yes 03/08/21 17:38 Consult Physician Routine Consulting Provider: Luis Felipe Beltran Consult Reason/Comments: elevated troponin Do you want consulting provider notified?: Yes 03/09/21 09:04 Consult Physician Routine Consulting Provider: Francia To Consult Reason/Comments: elevated troponin Do you want consulting provider notified?: Yes 03/11/21 13:33 Consult Physician Routine Consulting Provider: [facility] Consult Reason/Comments: Post Interventional patient Do you want consulting provider notified?: Already Contacted Primary care physician: Uriel Arzate [facility] Course: Discharge diagnosis 1. Acute ischemic stroke, with slurred speech and right upper extremity weakness and numbness, symptoms resolved, neurology consultation following awaiting further recommendation. Per neurology patient was started on aspirin and Plavix 2. Acute anteroseptal myocardial infarct cardiology consultation requested, IV heparin per protocol was started status post successful stenting of the mid LAD on 03/11/2021. Patient cleared for discharge from cardiology standpoint 3. Underlying history of hypertension 4. Underlying history of hyperlipidemia 5. 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 Aura ent was evaluated in the emergency room, vital examination on presentation revealed a temperature of 98.8 pulse 108 respirations 16 blood pressure 114/85 pulse ox 99% on room air, white blood count 12.1 hemoglobin 16.1 platelet count 358 sodium 139 potassium 4.1 chloride 105 CO2 25 glucose 120 BUN 18 creatinine 1.21 troponin level was elevated at 4.5 computed tomography scan of the brain without contrast was done in the emergency room and was negative. CT angiogram of the neck and brain was negative patient was admitted to telemetry floor neurology consultation was requested also cardiology consultation was requested in regard to elevated troponin level. MRI of the brain was done and revealed evidence of 13 mm area of increased signal in the left posterior temporal lobe that could relate to an acute infarct. On 03/10/2021 Patient was seen and examined on the medical floor, he is alert and oriented x 3 in no distress, he denies any complaints there is no fever or chills no headache or dizziness no chest pain no shortness of breath no palpitation no cough no nausea or vomiting no abdominal pain no diarrhea no blood in the stools no burning with urination no frequency or urgency and no hematuria, there is no weakness or numbness in any of the extremities no change in vision speech or gait. At this time patient was started on IV heparin awaiting further recommendation from cardiology. On 03/11/2021 Patient was seen and examined on the medical floor, he is alert and oriented x 3 in no distress, he denies any complaints there is no fever or chills no headache or dizziness no chest pain no shortness of breath no palpitation no cough no nausea or vomiting no abdominal pain no diarrhea no blood in the stools no burning with urination no frequency or urgency and no hematuria, there is no weakness or numbness in any of the extremities no change in vision speech or gait. At this time patient underwent cardiac cath today and had angioplasty and stent placement. 03/12/2021 patient cleared for discharge from cardiology standpoint.. Patient discharged on eliquis and Plavix. Patient to follow-up with PCP consulting providers for further management Patient Condition at Discharge: Stable Plan - Discharge Summary Discharge Rx Participant: No New Discharge Prescriptions: New Spironolactone [Aldactone] 25 mg PO DAILY tab Aspirin 81 mg PO DAILY chew Apixaban [Eliquis] 5 mg PO BID tab Atorvastatin [Lipitor] 80 mg PO HS tab Clopidogrel [Plavix] 75 mg PO DAILY tab lisinopriL [Zestril] 5 mg PO BID tab carvediloL [Coreg] 3.125 mg PO BID-W/MEALS tab Nitroglycerin Sl Tabs [Nitrostat] 0.4 mg SUBLINGUAL Q5M PRN tab PRN Reason: Chest Pain Continue metFORMIN HCL 1,000 mg PO BID Sertraline [Zoloft] 100 mg PO DAILY traMADol HCL [Ultram] 50 mg PO QID PRN PRN Reason: Pain Gabapentin [Neurontin] 400 mg PO TID Amitriptyline HCl [Elavil] 25 mg PO HS Nicotine 21Mg/24Hr Patch [Habitrol] 1 patch TRANSDERM DAILY PRN PRN Reason: Nicotine Cravings glipiZIDE [Glucotrol] 5 mg PO HS Butalb/Acetaminophen/Caffeine [Fioricet 50-300-40 mg Capsule] 1 cap PO BID PRN PRN Reason: Migraine Headache Levothyroxine Sodium [Synthroid] 75 mcg PO DAILY Omeprazole Magnesium [PriLOSEC OTC] 20 mg PO TID PRN PRN Reason: ACID REFLUX Discontinued lisinopriL [Prinivil] 20 mg PO DAILY Discharge Medication List Sertraline [Zoloft] 100 mg PO DAILY 07/10/15 [History] metFORMIN HCL 1,000 mg PO BID 07/10/15 [History] Amitriptyline HCl [Elavil] 25 mg PO HS 08/01/20 [History] Gabapentin [Neurontin] 400 mg PO TID 08/01/20 [History] traMADol HCL [Ultram] 50 mg PO QID PRN 08/01/20 [History] Butalb/Acetaminophen/Caffeine [Fioricet 50-300-40 mg Capsule] 1 cap PO BID PRN 03/08/21 [History] Levothyroxine Sodium [Synthroid] 75 mcg PO DAILY 03/08/21 [History] Nicotine 21Mg/24Hr Patch [Habitrol] 1 patch TRANSDERM DAILY PRN 03/08/21 [History] Omeprazole Magnesium [PriLOSEC OTC] 20 mg PO TID PRN 03/08/21 [History] glipiZIDE [Glucotrol] 5 mg PO HS 03/08/21 [History] Apixaban [Eliquis] 5 mg PO BID tab 03/12/21 [Rx] Aspirin 81 mg PO DAILY chew 03/12/21 [Rx] Atorvastatin [Lipitor] 80 mg PO HS tab 03/12/21 [Rx] Clopidogrel [Plavix] 75 mg PO DAILY tab 03/12/21 [Rx] Nitroglycerin Sl Tabs [Nitrostat] 0.4 mg SUBLINGUAL Q5M PRN tab 03/12/21 [Rx] Spironolactone [Aldactone] 25 mg PO DAILY tab 03/12/21 [Rx] carvediloL [Coreg] 3.125 mg PO BID-W/MEALS tab 03/12/21 [Rx] lisinopriL [Zestril] 5 mg PO BID tab 03/12/21 [Rx] Follow up Appointment(s)/Referral(s): [facility],Cardiac [NON-STAFF] - 1 Week (After discharge, you will follow- up with your sports trainer. Once you have obtained a prescription for cardiac rehab, please call [phone] to set up an evaluation.) Uriel Arzate MD [Primary Care Provider] - 1-2 days Luis Felipe eBltran MD [STAFF PHYSICIAN] - 1 Week Patient Instructions/Handouts: Coronary Intravascular Stent Placement (DC) Discharge Disposition: HOME SELF-CARE
== END 2021-03-12 13:07 | disposition home or self-care (01) | DRG 981 ==
LOC: EC 16:01 → 3SCARD 17:04
PROVIDERS: ADMIT Internal Medicine; ATTEND Internal Medicine
PROC: 027034Z Dilation of Coronary Artery, One Artery with Drug-eluting Intraluminal Device, Percutaneous Approach (ICD-10-PCS; principal; 2021-03-11 13:35)
PROC: 4A023N7 Measurement of Cardiac Sampling and Pressure, Left Heart, Percutaneous Approach (ICD-10-PCS; 2021-03-11 13:35)
PROC: B2111ZZ Fluoroscopy of Multiple Coronary Arteries using Low Osmolar Contrast (ICD-10-PCS; 2021-03-11 13:35)
DX: I63.432 Cerebral infarction due to embolism of left posterior cerebral artery (principal); I21.09 ST elevation (STEMI) myocardial infarction involving other coronary artery of anterior wall; G81.91 Hemiplegia, unspecified affecting right dominant side; E11.9 Type 2 diabetes mellitus without complications; R47.01 Aphasia; I25.10 Atherosclerotic heart disease of native coronary artery without angina pectoris; I25.5 Ischemic cardiomyopathy; R47.81 Slurred speech; R27.0 Ataxia, unspecified; R47.1 Dysarthria and anarthria; R29.707 NIHSS score 7; Z20.822 Contact with and (suspected) exposure to COVID-19; I10 Essential (primary) hypertension; E78.5 Hyperlipidemia, unspecified; E78.00 Pure hypercholesterolemia, unspecified; F10.10 Alcohol abuse, uncomplicated; H53.8 Other visual disturbances; M54.9 Dorsalgia, unspecified; F17.210 Nicotine dependence, cigarettes, uncomplicated; Z71.6 Tobacco abuse counseling; Z79.84 Long term (current) use of oral hypoglycemic drugs; Z79.890 Hormone replacement therapy; Z79.899 Other long term (current) drug therapy; Z88.0 Allergy status to penicillin
CPT/HCPCS: 36415; 70450; 70496; 70498; 70553; 71045; 80053; 80061; 83036; 84443; 84484; 85025; 85610; 85730; 87636; 93005; 93306; 93458; 94760; 95819; 99285

== ENCOUNTER → 2021-05-14 | Outpatient (CLI) | payer BC | END | disposition home or self-care (01) | DX: R22.42 Localized swelling, mass and lump, left lower limb (principal) ==

== ENCOUNTER → 2021-05-31 | Outpatient (CLI) | payer BC ==
--- NOTE | 2021-05-31 15:23 | US ---
EXAMINATION TYPE: US abdomen complete DATE OF EXAM: 05/31/2021 COMPARISON: CT CLINICAL HISTORY: R10.84 ABD PAIN. Epigastric pain after meals EXAM MEASUREMENTS: Liver Length: 16.1 cm Gallbladder Wall: 0.2 cm CBD: 0.3 cm Spleen: 8.4 cm Right Kidney: 10.3 x 5.9 x 5.0 cm Left Kidney: 10.1 x 5.9 x 4.9 cm Pancreas: mid and tail obscured by overlying bowel gas Liver: small left lobe; liver is hyperechoic to right renal cortex suggesting fatty liver; focal fat ty sparing is noted near gallbladder Gallbladder: wnl Evidence for sonographic Moralez's sign: no CBD: wnl Spleen: wnl Right Kidney: No hydronephrosis or masses seen Left Kidney: No hydronephrosis or masses seen Upper IVC: wnl Abd Aorta: intimal wall thickening is noted distally; but size is wnl IMPRESSION: Heterogeneous echogenic liver is nonspecific but most commonly seen with hepatic steatosis. Focal are a of hypoechogenicity in the gallbladder fossa may represent focal fatty sparing. MRI could be obtain ed for further evaluation if clinically warranted.
== END | disposition home or self-care (01) ==
LOC: RADUSWWP 08:28
PROVIDERS: ATTEND Internal Medicine
DX: R10.84 Generalized abdominal pain (principal)
CPT/HCPCS: 76700

== ENCOUNTER 2021-12-18 12:29 | Observation (INO) | payer BC ==
[2021-12-18 13:48] LABS: Basophils % (A) 0 %; Eosinophils # (A) 0.4 k/uL (0-0.7); Eosinophils % (A) 4 %; HCT 49.1 % (39.0-53.0); HGB 16.7 gm/dL (13.0-17.5); Lymphocytes # (A) 2.7 k/uL (1.0-4.8); Lymphocytes % (A) 25 %; MCH 31.4 pg (25.0-35.0); MCV 92.4 fL (80.0-100.0); Mean Platelet Volume 7.5; Monocytes # (A) 0.7 k/uL (0-1.0); Monocytes % (A) 6 %; Neutrophils # (A) 6.6 k/uL (1.3-7.7); Neutrophils % (A) 63 %; Platelet Count 349 k/uL (150-450); RBC 5.32 m/uL (4.30-5.90); RDW 12.8 % (11.5-15.5); WBC 10.5 k/uL (3.8-10.6)
[2021-12-18 13:57] LABS: Partial Thromboplastin Time 26.8 sec (22.0-30.0); Prothrombin Time 10.7 sec (9.0-12.0)
--- NOTE | 2021-12-18 14:04 | XR ---
EXAMINATION TYPE: XR chest 2V DATE OF EXAM: 12/18/2021 COMPARISON: 03/08/21 HISTORY: Shortness of breath TECHNIQUE: Frontal and lateral views of the chest are obtained. FINDINGS: Scattered senescent parenchymal changes noted. Hyperinflation compatible with COPD. No evidence for infiltrate. No evidence for atelectasis. Heart size is stable. Mediastinal structures are stable and grossly unremarkable. No evidence for hilar prominence. Degenerative changes dorsal spine. IMPRESSION: 1. No evidence for acute pulmonary disease.
--- NOTE | 2021-12-18 14:35 | ED ---
Chest Pain HPI - General Chief Complaint: Chest Pain Stated Complaint: chest pain/abd pain Time Seen by Provider: 12/18/21 13:14 Source: patient, RN notes reviewed Mode of arrival: ambulatory Limitations: no limitations - History of Present Illness Initial Comments: 56-year-old male presents emergency from chief complaint chest pain. Patient states to persistent substernal chest pain. Patient states that started over the weekend progressively worsened. Patient states she just buttocks cough but denies any other symptoms. Patient have some epigastric discomfort, reflux issues. Patient does admit that he had an OR with stent placement last year. Patient does see cardiology take his medications including Eliquis, hyperlipidemia meds and hypertension meds. - Related Data Home Medications Medication Instructions Recorded Confirmed Sertraline [Zoloft] 100 mg PO DAILY 07/10/15 12/18/21 metFORMIN HCL [Glucophage] 1,000 mg PO BID 07/10/15 12/18/21 Amitriptyline HCl [Elavil] 25 mg PO DAILY 08/01/20 12/18/21 traMADol HCL [Ultram] 50 mg PO TID PRN 08/01/20 12/18/21 Butalb/Acetaminophen/Caffeine 1 cap PO BID PRN 03/08/21 12/18/21 [Fioricet 50-300-40 mg Capsule] glipiZIDE [Glucotrol] 5 mg PO DAILY 03/08/21 12/18/21 Atorvastatin [Lipitor] 80 mg PO DAILY 12/18/21 12/18/21 Ergocalciferol [Vitamin D2 (1250 1,250 mcg PO MO 12/18/21 12/18/21 Mcg = 23874 Iu)] Levothyroxine Sodium [Synthroid] 88 mcg PO DAILY 12/18/21 12/18/21 Pantoprazole [Protonix] 40 mg PO DAILY 12/18/21 12/18/21 carvediloL [Coreg] 3.125 mg PO BID 12/18/21 12/18/21 Previous Rx's Medication Instructions Recorded Apixaban [Eliquis] 5 mg PO BID tab 03/12/21 Spironolactone [Aldactone] 25 mg PO DAILY tab 03/12/21 Allergies Allergy/AdvReac Type Severity Reaction Status Date / Time Penicillins AdvReac Confusion Verified 12/18/21 14:29 Review of Systems ROS Statement: Those systems with pertinent positive or pertinent negative responses have been documented in the HPI. ROS Other: All systems not noted in ROS Statement are negative. EKG Findings - EKG Comments: EKG Findings:: EKG performed at 13:33. Sinus rhythm with rate of 77 OK 186 QRS 65 QTC is QTC 349/381 Past Medical History Past Medical History: Diabetes Mellitus, Hyperlipidemia, Hypertension Additional Past Medical History / Comment(s): back pain History of Any Multi-Drug Resistant Organisms: None Reported Additional Past Surgical History / Comment(s): oral Past Anesthesia/Blood Transfusion Reactions: No Reported Reaction Past Psychological History: No Psychological Hx Reported, Depression Smoking Status: Current every day smoker Past Alcohol Use History: None Reported, Abuse Past Drug Use History: None Reported General Exam Limitations: no limitations General appearance: alert, in no apparent distress Head exam: Present: atraumatic, normocephalic, normal inspection Eye exam: Present: normal appearance, PERRL, EOMI. Absent: scleral icterus, conjunctival injection, periorbital swelling ENT exam: Present: normal exam, mucous membranes moist Neck exam: Present: normal inspection. Absent: tenderness, meningismus, lymph adenopathy Respiratory exam: Present: normal lung sounds bilaterally. Absent: respiratory distress, wheezes, rales, rhonchi, stridor Cardiovascular Exam: Present: regular rate, normal rhythm, normal heart sounds. Absent: systolic murmur, diastolic murmur, rubs, gallop, clicks GI/Abdominal exam: Present: soft, normal bowel sounds. Absent: distended, tenderness, guarding, rebound, rigid Course Vital Signs 12/18/21 12/18/21 12:46 15:02 Temperature 98.1 F 98.9 F Pulse Rate 81 71 Respiratory 16 18 Rate Blood Pressure 133/92 130/80 O2 Sat by Pulse 98 97 Oximetry Chest Pain MDM - MDM Patient's cardiac enzymes are negative. Patient has multiple risk factors including recent coronary stent. Patient be admitted for cardiology rule out. Disposition Clinical Impression: Chest pain Disposition: ADMITTED IP TO THIS HOSP Condition: Fair Referrals: Uriel Arzate MD [Primary Care Provider] - 1-2 days
[2021-12-18 15:04] VITALS: BP 130/80; PULSE 71; RESP 18; TEMP 98.9
[2021-12-18 15:36] LABS: ALT 18 U/L (4-49); AST 25 U/L (17-59); African American GFR (CKD) >90 (>60 ml/min/1.73 sqM); Albumin 4.4 g/dL (3.5-5.0); Alkaline Phosphatase 77 U/L (38-126); Anion Gap 10 mmol/L; Blood Urea Nitrogen 21 mg/dL (9-20); Calcium 10.3 mg/dL (8.4-10.2); Carbon Dioxide 23 mmol/L (22-30); Chloride 106 mmol/L (98-107); Glucose 73 mg/dL (74-99); Magnesium 1.5 mg/dL (1.6-2.3); Non-African American GFR(CKD) 87 (>60 ml/min/1.73 sqM); Potassium 5.2 mmol/L (3.5-5.1); Sodium 139 mmol/L (137-145); Total Bilirubin 0.7 mg/dL (0.2-1.3)
[2021-12-18] MEDS ORDERED: MAGNESIUM OXIDE 400 MG TAB PO STA (15:37)
[2021-12-18] MEDS ORDERED: NITROGLYCERIN SL TABS 0.4 MG TAB SUBLINGUAL PRN (15:53)
[2021-12-18] MEDS ORDERED: traMADol 50 MG TAB PO PRN (15:55)
[2021-12-18] MEDS ORDERED: carvediloL 3.125 MG TAB PO SCH (17:30)
[2021-12-18] MEDS ORDERED: metFORMIN 500 MG TAB PO SCH (21:00)
[2021-12-18] MEDS ORDERED: APIXABAN 5 MG TAB PO SCH (21:00)
[2021-12-19] MEDS ORDERED: LEVOTHYROXINE 88 MCG TAB PO SCH (06:30)
[2021-12-19] MEDS ORDERED: glipiZIDE 5 MG TAB PO SCH (07:30)
[2021-12-19] MEDS ORDERED: AMITRIPTYLINE HCL 25 MG TAB PO SCH (09:00)
[2021-12-19] MEDS ORDERED: ASPIRIN 325 MG TAB PO SCH (09:00)
[2021-12-19] MEDS ORDERED: SPIRONOLACTONE 25 MG TAB PO SCH (09:00)
[2021-12-19] MEDS ORDERED: ATORVASTATIN 80 MG TAB PO SCH (09:00)
[2021-12-19] MEDS ORDERED: PANTOPRAZOLE 40 MG TABLET PO SCH (09:00)
[2021-12-19] MEDS ORDERED: SERTRALINE 100 MG TAB PO SCH (09:00)
[2021-12-23] MEDS ORDERED: ERGOCALCIFEROL 1,250 MCG (50,000 IU) CAPSULE PO SCH (09:00)
--- NOTE | 2021-12-29 10:47 | P.HPIM ---
History of Present Illness H&P Date: 12/29/21 This is a 56-year-old male patient who presented to the ER with complaints of chest pain. According to the ER record It appears patient does have an extensive medical history of coronary artery disease, diabetes mellitus hyperlipidemia hypertension and nicotine dependence. Patient was recommended to be admitted per ER staff for further evaluation and cardiology consult. According to records patient left AGAINST MEDICAL ADVICE I did not personally examine this patient patient left before examination can be completed. Past Medical History Past Medical History: Diabetes Mellitus, Hyperlipidemia, Hypertension Additional Past Medical History / Comment(s): back pain History of Any Multi-Drug Resistant Organisms: None Reported Additional Past Surgical History / Comment(s): oral Past Anesthesia/Blood Transfusion Reactions: No Reported Reaction Past Psychological History: No Psychological Hx Reported, Depression Smoking Status: Current every day smoker Past Alcohol Use History: None Reported, Abuse Past Drug Use History: None Reported Medications and Allergies Home Medications Medication Instructions Recorded Confirmed Type Sertraline [Zoloft] 100 mg PO DAILY 07/10/15 12/18/21 History metFORMIN HCL [Glucophage] 1,000 mg PO BID 07/10/15 12/18/21 History Amitriptyline HCl [Elavil] 25 mg PO DAILY 08/01/20 12/18/21 History traMADol HCL [Ultram] 50 mg PO TID PRN 08/01/20 12/18/21 History Butalb/Acetaminophen/Caffeine 1 cap PO BID PRN 03/08/21 12/18/21 History [Fioricet 50-300-40 mg Capsule] glipiZIDE [Glucotrol] 5 mg PO DAILY 03/08/21 12/18/21 History Apixaban [Eliquis] 5 mg PO BID tab 03/12/21 12/18/21 Rx Spironolactone [Aldactone] 25 mg PO DAILY tab 03/12/21 12/18/21 Rx Atorvastatin [Lipitor] 80 mg PO DAILY 12/18/21 12/18/21 History Ergocalciferol [Vitamin D2 (1250 1,250 mcg PO MO 12/18/21 12/18/21 History Mcg = 14288 Iu)] Levothyroxine Sodium [Synthroid] 88 mcg PO DAILY 12/18/21 12/18/21 History Pantoprazole [Protonix] 40 mg PO DAILY 12/18/21 12/18/21 History carvediloL [Coreg] 3.125 mg PO BID 12/18/21 12/18/21 History Allergies Allergy/AdvReac Type Severity Reaction Status Date / Time Penicillins AdvReac Confusion Verified 12/18/21 14:29 Results CBC & Chem 7: 12/18/21 13:27 12/18/21 14:35
== END 2021-12-18 17:03 | disposition left against medical advice (07) ==
LOC: EC 12:29 → 6NMEDSUR 15:46
PROVIDERS: ADMIT Internal Medicine; ATTEND Internal Medicine
DX: R07.89 Other chest pain (principal); I25.10 Atherosclerotic heart disease of native coronary artery without angina pectoris; E11.9 Type 2 diabetes mellitus without complications; I10 Essential (primary) hypertension; E78.5 Hyperlipidemia, unspecified; F32.A Depression, unspecified; K21.9 Gastro-esophageal reflux disease without esophagitis; R10.13 Epigastric pain; I25.2 Old myocardial infarction; F17.200 Nicotine dependence, unspecified, uncomplicated; Z53.29 Procedure and treatment not carried out because of patient's decision for other reasons; Z20.822 Contact with and (suspected) exposure to COVID-19; Z79.84 Long term (current) use of oral hypoglycemic drugs; Z79.01 Long term (current) use of anticoagulants; Z79.890 Hormone replacement therapy; Z79.899 Other long term (current) drug therapy; Z88.0 Allergy status to penicillin; Z95.5 Presence of coronary angioplasty implant and graft; Z98.890 Other specified postprocedural states
CPT/HCPCS: 99285; 36415; 93005; 80053; 83735; 84484; 85025; 85610; 85730; 87635; 71046; G0378

== ENCOUNTER 2022-03-02 13:36 | Emergency (ER) | payer BC ==
--- NOTE | 2022-03-02 14:41 | XR ---
EXAMINATION TYPE: XR shoulder complete RT DATE OF EXAM: 03/02/2022 COMPARISON: NONE HISTORY: Pain TECHNIQUE: 3 views FINDINGS: There is no evidence of fracture nor dislocation. Glenohumeral joint is intact. IMPRESSION: Negative right shoulder exam.
--- NOTE | 2022-03-02 14:43 | XR ---
EXAMINATION TYPE: XR lumbar spine 2 or 3V DATE OF EXAM: 03/02/2022 COMPARISON: NONE HISTORY: Pain TECHNIQUE: 3 views FINDINGS: There is normal alignment of the vertebra. There is a degenerative disc space narrowing at L4-5 with spurring and sclerosis. No lumbar compression fracture. There is also moderate narrowing at the L2-3 and L3-4 disc spaces. Abdominal aorta is atheromatous. Sacroiliac joints are intact. IMPRESSION: Moderate multilevel spondylosis. No fracture.
[2022-03-02] MEDS ORDERED: CYCLOBENZAPRINE 10 MG TAB PO STA (16:06)
[2022-03-02] MEDS ORDERED: KETOROLAC 15 MG/ML 1 ML VIAL IM STA (16:06)
[2022-03-02] MEDS ORDERED: traMADol 50 MG STARTER PACK 3 TAB BTL PO STA (16:06)
[2022-03-02] MEDS ORDERED: CYCLOBENZAPRINE 10MG STARTER 3 TAB BTL PO STA (16:06)
[2022-03-02] MEDS ORDERED: traMADol 50 MG TAB PO STA (16:06)
--- NOTE | 2022-03-02 16:15 | ED ---
Fall HPI - General Chief Complaint: Fall Stated Complaint: Fall,Back Pain,Pt on Blood Thinners Time Seen by Provider: 03/02/22 16:00 Source: patient Mode of arrival: wheelchair - History of Present Illness Initial Comments: This is a pleasant 57-year-old male who presents as a primary after falling on Thursday. Patient states she got up to have a cigarette and went to sit down in the chair. Patient states it was dark and he grabbed the handle of the chair but inadvertently sent down beside it and fell onto a battery jumpstart her that his roommate was keeping The chair. Patient states this struck the right lower back area. Patient also injured hisRight shoulder Norberto Stempa states this is relatively minor pain. Patient denies any problems with vomiting when she urination. Is able to ambulate. Patient is on anticoagulant therapy but states he did not hit his head or neck. No headache, no fever or chills, no changes in vision or hearing, no sore throat or difficulty with speech, no neck pain, no chest pain or shortness of breath, no abdominal pain, no nausea or vomiting, no changes in urination or bowel movements, no numbness or tingling, no extremity pain, no skin rashes or lesions. - Related Data Home Medications Medication Instructions Recorded Confirmed Sertraline [Zoloft] 100 mg PO DAILY 07/10/15 12/18/21 metFORMIN HCL [Glucophage] 1,000 mg PO BID 07/10/15 12/18/21 Amitriptyline HCl [Elavil] 25 mg PO DAILY 08/01/20 12/18/21 traMADol HCL [Ultram] 50 mg PO TID PRN 08/01/20 12/18/21 Butalb/Acetaminophen/Caffeine 1 cap PO BID PRN 03/08/21 12/18/21 [Fioricet 50-300-40 mg Capsule] glipiZIDE [Glucotrol] 5 mg PO DAILY 03/08/21 12/18/21 Atorvastatin [Lipitor] 80 mg PO DAILY 12/18/21 12/18/21 Ergocalciferol [Vitamin D2 (1250 1,250 mcg PO MO 12/18/21 12/18/21 Mcg = 55768 Iu)] Levothyroxine Sodium [Synthroid] 88 mcg PO DAILY 12/18/21 12/18/21 Pantoprazole [Protonix] 40 mg PO DAILY 12/18/21 12/18/21 carvediloL [Coreg] 3.125 mg PO BID 12/18/21 12/18/21 Previous Rx's Medication Instructions Recorded Apixaban [Eliquis] 5 mg PO BID tab 03/12/21 Spironolactone [Aldactone] 25 mg PO DAILY tab 03/12/21 Allergies Allergy/AdvReac Type Severity Reaction Status Date / Time Penicillins AdvReac Confusion Verified 03/02/22 13:49 Review of Systems ROS Statement: Those systems with pertinent positive or pertinent negative responses have been documented in the HPI. ROS Other: All systems not noted in ROS Statement are negative. Past Medical History Past Medical History: Diabetes Mellitus, Hyperlipidemia, Hypertension Additional Past Medical History / Comment(s): back pain History of Any Multi-Drug Resistant Organisms: None Reported Past Surgical History: Heart Catheterization With Stent Additional Past Surgical History / Comment(s): oral Past Anesthesia/Blood Transfusion Reactions: No Reported Reaction Past Psychological History: No Psychological Hx Reported, Depression Smoking Status: Current every day smoker Past Alcohol Use History: None Reported, Abuse Past Drug Use History: None Reported General Exam Limitations: no limitations General appearance: alert, in no apparent distress Head exam: Present: atraumatic, normocephalic, normal inspection Eye exam: Present: normal appearance, PERRL, EOMI. Absent: scleral icterus, conjunctival injection, periorbital swelling ENT exam: Present: normal exam, mucous membranes moist Neck exam: Present: normal inspection, full ROM. Absent: tenderness, meningismus, lymphadenopathy Respiratory exam: Present: normal lung sounds bilaterally. Absent: respiratory distress, wheezes, rales, rhonchi, stridor Cardiovascular Exam: Present: regular rate, normal rhythm, normal heart sounds. Absent: systolic murmur, diastolic murmur, rubs, gallop, clicks GI/Abdominal exam: Present: soft, normal bowel sounds. Absent: distended, tenderness, guarding, rebound, rigid Rectal exam: Present: normal inspection, normal rectal tone Extremities exam: Present: normal inspection, full ROM, normal capillary refill. Absent: tenderness, pedal edema, joint swelling, calf tenderness Back exam: Present: normal inspection, full ROM, tenderness, paraspinal tenderness (Left lumbar paraspinal tenderness), other (Patient has tenderness to left lumbar paraspinals as well as the soft tissues about the right shoulder. No loss of range of motion. Full range of motion all major joints. No crepitus. No abrasions skin integrity. No erythema.). Absent: CVA tenderness (R), CVA tenderness (L), muscle spasm, vertebral tenderness Neurological exam: Present: alert, altered, oriented X3, CN II-XII intact, normal gait, reflexes normal, other (Sensation intact, straight leg raise negative, no evidence of saddle anesthesia.). Absent: motor sensory deficit Psychiatric exam: Present: normal affect, normal mood Skin exam: Present: warm, dry, intact, normal color. Absent: rash Course Vital Signs 03/02/22 03/02/22 13:45 17:36 Temperature 98.2 F 98.1 F Pulse Rate 105 H 74 Respiratory 18 16 Rate Blood Pressure 130/81 128/86 O2 Sat by Pulse 99 99 Oximetry Medical Decision Making - Medical Decision Making -There are no red flags for concerning back pathology. Specifically: -No history of cancer, this is not a mass effect, MRI not indicated. -No anticoagulation, this is not a bleed. -No fevers, no IVDU, this is not an infectious process. -No trauma, no bony pain, x-rays are not indicated. -With a normal neuro exam, and no urinary or bowel retention or incontinence, there is no clinical sign of motor defect or cauda equina - MRI is not indicated at this point. -No pulsating abdominal mass or risk factors for AAA. -Pain is relieved with rest, which is also less concerning. -I do not believe that x-rays or emergent MRI is indicated at this time. Patient was told to return to the ER for any signs or symptoms worsen. Told to return immediately if any other problems arise. All questions answered. Treatment plan discussed. Patient in agreement Every effort has been made to ensure accuracy of this dictation. However, due to the limitations of electronic medical records and dictation devices, errors in charting still occur. The case was discussed in detail with ED attending physician. Presentation, findings, treatment plan discussed in detail. Dr. Hoskins Disposition Clinical Impression: Contusion of lower back, Cigarette smoker, Right shoulder strain Disposition: HOME SELF-CARE Condition: Stable Is patient prescribed a controlled substance at d/c from ED?: No Referrals: Uriel Arzate MD [Primary Care Provider] - 1-2 days Time of Disposition: 18:23
[2022-03-02 17:37] VITALS: BP 128/86; PULSE 74; RESP 16; TEMP 98.1
--- NOTE | 2022-03-02 18:03 | CT ---
EXAMINATION TYPE: CT abdomen pelvis wo con DATE OF EXAM: 03/02/2022 COMPARISON: 03/09/2011 HISTORY: RT LOWER BACK PAIN FROM FALL. CT DLP: 543.7 mGycm Automated exposure control for dose reduction was used. Images obtained from the diaphragm to the floor of the pelvis without contrast. Lung bases are clear. There is no pleural effusion. Heart size is normal. No pericardial effusion. [place] spleen stomach pancreas appear intact. Gallbladder is intact. The bile ducts are not dilated. There is no adrenal mass. Kidneys have normal size. No hydronephrosis. Ureters are not dilated. Appen blu is lateral and appears normal. There is no retroperitoneal adenopathy. The bladder distends sumeet hly. There is no inguinal hernia. No free fluid in the pelvis. There is no mesenteric edema. There is no ascites or free air. No evidence of a bowel obstruction. The lumbar vertebrae have normal alignment. There is multilevel vacuum disc with disc space narrowing from L2 to L5. No compression fracture. There is some spinal stenosis at L4-5. The bony pelvis is in tact. IMPRESSION: No acute abnormality of the abdomen and pelvis. Normal appendix. No adverse change compared to old ex am.
== END 2022-03-02 18:55 | disposition home or self-care (01) ==
LOC: EC 13:36
DX: S30.0XXA Contusion of lower back and pelvis, initial encounter (principal); S46.911A Strain of unspecified muscle, fascia and tendon at shoulder and upper arm level, right arm, initial encounter; E11.9 Type 2 diabetes mellitus without complications; E78.5 Hyperlipidemia, unspecified; I10 Essential (primary) hypertension; F32.A Depression, unspecified; F17.210 Nicotine dependence, cigarettes, uncomplicated; Z79.84 Long term (current) use of oral hypoglycemic drugs; Z79.01 Long term (current) use of anticoagulants; Z88.0 Allergy status to penicillin; W22.03XA Walked into furniture, initial encounter
CPT/HCPCS: 99284; 96372; 72100; 73030; 74176; J1885

== ENCOUNTER 2022-03-18 11:50 | Emergency (ER) | payer BC ==
[2022-03-18 12:29] VITALS: RESP 18
[2022-03-18] MEDS ORDERED: HYDROmorphone 1 MG/ML 1 ML SYRINGE IM STA (15:08)
[2022-03-18] MEDS ORDERED: ORPHENADRINE 30 MG/ML 2 ML VIAL IM STA (15:08)
--- NOTE | 2022-03-18 15:14 | ED ---
General Adult HPI - General Chief complaint: Back Pain/Injury Stated complaint: Back pain Time Seen by Provider: 03/18/22 15:00 Source: patient, RN notes reviewed, old records reviewed Mode of arrival: wheelchair Limitations: no limitations - History of Present Illness Initial comments: 57-year-old male presents to the emergency room with complaints of upper and lower back pain. 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 Patient had CT scan and x-rays done at that time with no acute injuries noted. Patient was referred to his primary care doctor and he did follow up but states he did nothing for his pain. 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 He states he did have a doctor's appointment today at 2:00 but came to the emergency room because of the pain. He denies any fevers, no nausea vomiting or diarrhea. He denies any bowel or bladder incontinence. He states t hat he does have a history of low back pain and has been seen by a spinal doctor and has gone to physical therapy but states he has not returned to physical therapy because it makes his pain worse. -: week(s) Location: back Radiation: extremity, distal Severity scale (1-10): 10 Quality: constant Consistency: constant Improves with: none Worsens with: other (walking) Associated Symptoms: denies other symptoms Treatments Prior to Arrival: none - Related Data Home Medications Medication Instructions Recorded Confirmed Sertraline [Zoloft] 100 mg PO DAILY 07/10/15 12/18/21 metFORMIN HCL [Glucophage] 1,000 mg PO BID 07/10/15 12/18/21 Amitriptyline HCl [Elavil] 25 mg PO DAILY 08/01/20 12/18/21 traMADol HCL [Ultram] 50 mg PO TID PRN 08/01/20 12/18/21 Butalb/Acetaminophen/Caffeine 1 cap PO BID PRN 03/08/21 12/18/21 [Fioricet 50-300-40 mg Capsule] glipiZIDE [Glucotrol] 5 mg PO DAILY 03/08/21 12/18/21 Atorvastatin [Lipitor] 80 mg PO DAILY 12/18/21 12/18/21 Ergocalciferol [Vitamin D2 (1250 1,250 mcg PO MO 12/18/21 12/18/21 Mcg = 24345 Iu)] Levothyroxine Sodium [Synthroid] 88 mcg PO DAILY 12/18/21 12/18/21 Pantoprazole [Protonix] 40 mg PO DAILY 12/18/21 12/18/21 carvediloL [Coreg] 3.125 mg PO BID 12/18/21 12/18/21 Previous Rx's Medication Instructions Recorded Apixaban [Eliquis] 5 mg PO BID tab 03/12/21 Spironolactone [Aldactone] 25 mg PO DAILY tab 03/12/21 predniSONE 50 mg PO DAILY #5 tab 03/18/22 Allergies Allergy/AdvReac Type Severity Reaction Status Date / Time Penicillins AdvReac Confusion Verified 03/18/22 12:29 Review of Systems ROS Statement: Those systems with pertinent positive or pertinent negative responses have been documented in the HPI. ROS Other: All systems not noted in ROS Statement are negative. Past Medical History Past Medical History: Diabetes Mellitus, Hyperlipidemia, Hypertension Additional Past Medical History / Comment(s): back pain History of Any Multi-Drug Resistant Organisms: None Reported Past Surgical History: Heart Catheterization With Stent Additional Past Surgical History / Comment(s): oral Past Anesthesia/Blood Transfusion Reactions: No Reported Reaction Past Psychological History: No Psychological Hx Reported, Depression Smoking Status: Current every day smoker Past Alcohol Use History: None Reported Past Drug Use History: None Reported General Exam Limitations: no limitations General appearance: alert, in no apparent distress Head exam: Present: atraumatic, normocephalic Eye exam: Present: EOMI, conjunctival injection. Absent: scleral icterus, periorbital swelling, periorbital tenderness Neck exam: Present: normal inspection, full ROM. Absent: tenderness, meningismus, lymphadenopathy Respiratory exam: Present: normal lung sounds bilaterally. Absent: respiratory distress, accessory muscle use Cardiovascular Exam: Present: tachycardia GI/Abdominal exam: Present: soft. Absent: distended, tenderness, guarding, rebound, rigid Extremities exam: Present: normal inspection, full ROM, normal capillary refill, other (Patient able to perform apley back scratch test bilaterally no difficulty). Absent: tenderness, pedal edema, joint swelling, calf tenderness Back exam: Present: normal inspection, tenderness (Thoracic and lumbar sacral), vertebral tenderness. Absent: CVA tenderness (R), CVA tenderness (L), rash noted Expanded Back exam: Absent: saddle anesthesia Back exam: Negative Straight Leg Raising: Left, Right Neurological exam: Present: alert, oriented X3, normal gait Expanded Patient oriented to: Present: person, place, time Speech: Present: fluid speech Cerebellar function: Finger to Nose: Normal, Heel to Johnson: Normal Motor strength exam: RUE: 5, LUE: 5, RLE: 5, LLE: 5 Eye Response: (4) open spontaneously Motor Response: (6) obeys commands Verbal Response: (5) oriented Gilma Total: 15 Psychiatric exam: Present: agitated, other (Tearful) Skin exam: Present: warm, dry, intact, normal color. Absent: rash, cyanosis, diaphoretic, petechiae, pallor Course Vital Signs 03/18/22 03/18/22 12:27 16:00 Temperature 98.3 F 98.6 F Pulse Rate 108 H 98 Respiratory 18 18 Rate Blood Pressure 149/97 138/68 O2 Sat by Pulse 99 98 Oximetry EKG Findings - EKG Results: EKG: sinus rhythm (Ventricular rate 81, P unable 0.237, QRS 0.69, QTC 0.398) Medical Decision Making - Medical Decision Making Patient has not had a fall or an injury since his last visit on March 02. X-ray right shoulder and lumbar spine at last visit 03/02/2022 shows spondylosis no evidence of fracture. CT the abdomen and pelvis was also done on March 02 with no acute process, no evidence of AAA. Patient has no focal neurological deficits, no fevers, no history of cancer, denies drug use. His vital signs are stable. Patient states that he has been seen by his primary care doctor for this back pain in the past. He did have an appointment today which he canceled, stated coming to the emergency room for immediate pain relief. Patient has no focal neurological deficits. Negative straight leg test. Negative Apley scratch test. No bowel or bladder incontinence or saddle anesthesia. No other red flag symptoms. Patient was given Dilaudid and Norflex in the emergency room. He states he does have an appointment scheduled tomorrow at 2:00 with his primary care doctor. I did encourage him to discuss with his primary care doctor about represcribing the gabapentin as he states that it has worked for his pain in the past. He was directed to continue the tramadol as previously prescribed in addition to the prednisone and Tylenol #3's as prescribed today. Case discussed with Dr. Michelle Disposition Clinical Impression: Back pain Disposition: HOME SELF-CARE Condition: Good Instructions (If sedation given, give patient instructions): Back Pain (ED), Lower Back Exercises (ED) Additional Instructions: Take medications as previously prescribed in addition to the Tylenol #3's given today as needed for pain. Take the prednisone for inflammation and pain that goes down your legs. Do not drink, drive or operate heavy machinery when taking pain medications. Follow-up with your primary care doctor as scheduled tomorrow. Discuss with your doctor represcribing gabapentin since you stated that medication worked for you in the past. Please consider physical therapy. Return to the emergency room with any new or concerning symptoms including fevers, incontinence of bowel or bladder or inability to ambulate. Prescriptions: predniSONE 50 mg PO DAILY #5 tab Is patient prescribed a controlled substance at d/c from ED?: No Referrals: Uriel Arzate MD [Primary Care Provider] - 1-2 days Time of Disposition: 15:29
[2022-03-18] MEDS ORDERED: ACET/COD 300 MG/30 MG STARTER PACK 6 TAB BTL PO STA (15:30)
[2022-03-18 16:01] VITALS: BP 138/68; PULSE 98; TEMP 98.6
== END 2022-03-18 16:00 | disposition home or self-care (01) ==
LOC: EC 11:50
DX: M54.50 Low back pain, unspecified (principal); F17.200 Nicotine dependence, unspecified, uncomplicated; I10 Essential (primary) hypertension; E11.9 Type 2 diabetes mellitus without complications; E78.5 Hyperlipidemia, unspecified; Z88.0 Allergy status to penicillin; Z79.899 Other long term (current) drug therapy; Z79.84 Long term (current) use of oral hypoglycemic drugs
CPT/HCPCS: 93005; 99283; 96372; J2360; J1170

== ENCOUNTER → 2022-08-21 | Outpatient (CLI) | payer OTHER ==
--- NOTE | 2022-08-21 14:42 | XR ---
EXAMINATION TYPE: XR chest 2V DATE OF EXAM: 08/21/2022 COMPARISON: NONE HISTORY: Fall. TECHNIQUE: Frontal and lateral views of the chest are obtained. FINDINGS: There is no focal air space opacity, pleural effusion, or pneumothorax seen. The cardiac silhouette size is within normal limits. The osseous structures are intact. IMPRESSION: No acute cardiopulmonary process.
== END | disposition home or self-care (01) ==
LOC: RADXRMAIN 14:23
PROVIDERS: ATTEND Emergency Medicine
DX: S20.20XA Contusion of thorax, unspecified, initial encounter (principal)
CPT/HCPCS: 71046

== ENCOUNTER 2023-10-19 09:05 | Observation (INO) | payer BC ==
[2023-10-19] MEDS ORDERED: LORazepam 2 MG/ML INJ IV STA (09:23)
[2023-10-19] MEDS ORDERED: ASPIRIN 81 MG PO STA (09:23)
[2023-10-19] MEDS ORDERED: NITROGLYCERIN OINT 1 INCH/GM PACKET TOPICAL STA (09:23)
--- NOTE | 2023-10-19 09:27 | ED ---
General Adult HPI - General Chief complaint: Chest Pain Stated complaint: Chest Pain Time Seen by Provider: 10/19/23 09:20 Source: patient, RN notes reviewed, old records reviewed Mode of arrival: ambulatory Limitations: no limitations - History of Present Illness Initial comments: This a 58-year-old male who presents emergency Department complaining of chest pain. Patient states his been ongoing for 3 or 4 days. Patient states is intermittent. Patient states that he's been ongoing for a couple of hours. Patient states he did have some back pain the last couple of days between her shoulder blades but that has resolved. Patient states now his chest pain a little bit of left-sided neck pain. Patient states she's mild short of breath and was nauseous earlier but is no longer nauseated. Patient denies any diaphoretic episodes. Patient states she drinks 5 or so shots of alcohol every day. Patient states he also smokes has high blood pressure diabetes high cholesterol and has a strong family history of heart disease. Patient himself has had a heart attack in the past and has one stent. - Related Data Home Medications Medication Instructions Recorded Confirmed Sertraline [Zoloft] 100 mg PO DAILY 07/10/15 12/18/21 metFORMIN HCL [Glucophage] 1,000 mg PO BID 07/10/15 12/18/21 Amitriptyline HCl [Elavil] 25 mg PO DAILY 08/01/20 12/18/21 traMADol HCL [Ultram] 50 mg PO TID PRN 08/01/20 12/18/21 Butalb/Acetaminophen/Caffeine 1 cap PO BID PRN 03/08/21 12/18/21 [Fioricet 50-300-40 mg Capsule] glipiZIDE [Glucotrol] 5 mg PO DAILY 03/08/21 12/18/21 Atorvastatin [Lipitor] 80 mg PO DAILY 12/18/21 12/18/21 Ergocalciferol [Vitamin D2 (1250 1,250 mcg PO MO 12/18/21 12/18/21 Mcg = 79339 Iu)] Levothyroxine Sodium [Synthroid] 88 mcg PO DAILY 12/18/21 12/18/21 Pantoprazole [Protonix] 40 mg PO DAILY 12/18/21 12/18/21 carvediloL [Coreg] 3.125 mg PO BID 12/18/21 12/18/21 Previous Rx's Medication Instructions Recorded Apixaban [Eliquis] 5 mg PO BID tab 03/12/21 Spironolactone [Aldactone] 25 mg PO DAILY tab 03/12/21 predniSONE 50 mg PO DAILY #5 tab 03/18/22 Allergies Allergy/AdvReac Type Severity Reaction Status Date / Time Penicillins AdvReac Confusion Verified 10/19/23 09:17 Review of Systems ROS Statement: Those systems with pertinent positive or pertinent negative responses have been documented in the HPI. ROS Other: All systems not noted in ROS Statement are negative. Past Medical History Past Medical History: Diabetes Mellitus, Hyperlipidemia, Hypertension Additional Past Medical History / Comment(s): back pain History of Any Multi-Drug Resistant Organisms: None Reported Past Surgical History: Heart Catheterization With Stent Additional Past Surgical History / Comment(s): oral Past Anesthesia/Blood Transfusion Reactions: No Reported Reaction Past Psychological History: No Psychological Hx Reported, Depression Smoking Status: Current every day smoker Past Alcohol Use History: None Reported Past Drug Use History: None Reported General Exam - General Exam Comments Initial Comments: GENERAL: Patient is well-developed and well-nourished. Patient is nontoxic and well- hydrated and is in mild distress. ENT: Neck is soft and supple. No significant lymphadenopathy is noted. Oropharynx is clear. Moist mucous membranes. Neck has full range of motion without eliciting any pain. EYES: The sclera were anicteric and conjunctiva were pink and moist. Extraocular movements were intact and pupils were equal round and reactive to light. Eyelids were unremarkable. PULMONARY: Unlabored respirations. Good breath sounds bilaterally. No audible rales rhonchi or wheezing was noted. CARDIOVASCULAR: There is a regular rate and rhythm without any murmurs gallops or rubs. ABDOMEN: Soft and nontender with normal bowel sounds. SKIN: Skin is clear with no lesions or rashes and otherwise unremarkable. NEUROLOGIC: Patient is alert and oriented x3. Cranial nerves II through XII are grossly intact. Motor and sensory are also intact. Normal speech, volume and content. Symmetrical smile. MUSCULOSKELETAL: Normal extremities with adequate strength and full range of motion. LYMPHATICS: No significant lymphadenopathy is noted PSYCHIATRIC: Normal psychiatric evaluation. Limitations: no limitations Course Vital Signs 10/19/23 10/19/23 10/19/23 09:16 09:23 10:00 Temperature 98.2 F Pulse Rate 109 H 100 Pulse Rate [ 75 Machine Carton Marker ] Respiratory 22 20 Rate Blood Pressure 132/77 137/90 O2 Sat by Pulse 99 98 Oximetry 10/19/23 10:01 Temperature Pulse Rate Pulse Rate [ Machine Carton Marker ] Respiratory 20 Rate Blood Pressure O2 Sat by Pulse Oximetry Medical Decision Making - Medical Decision Making EKG was interpreted by myself. EKG shows sinus tachycardia at 102 bpm LA interval is 211 QRSs 89 QT interval 3:30 QTC is 389. Patient's a depression. Was pt. sent in by a medical professional or institution (, PA, AIRCRAFT ACCESSORIES MECHANIC, urgent care, hospital, or [place] health [place] facility...) When possible be specific @ -No Did you speak to anyone other than the patient for history (EMS, parent, family, police, friend...)? What history was obtained from this source @ -No Did you review nursing and triage notes (agree or disagree)? Why? @ -I reviewed and agree with nursing and triage notes Were old charts reviewed (outside hosp., previous admission, EMS record, old EKG, old radiological studies, urgent care reports/EKG's, [place] health care facility records)? Report findings @ -I reviewed prior charts prior laboratory prior EKGs in this patient Differential Diagnosis (chest pain, altered mental status, abdominal pain women, abdominal pain men, vaginal bleeding, weakness, fever, dyspnea, syncope, headache, dizziness, GI bleed, back pain, seizure, CVA, palpatations, mental health, musculoskeletal)? @ -Differential Chest Pain: Stable Angina, Unstable Angina, STEMI, NSTEMI Aortic Dissection, Pneumothorax, Musculoskeletal, Esophageal Spasm GERD, Cholecystitis, Pancreatitis, Zoster, this is not meant to be an all-inclusive list. EKG interpreted by me (3pts min.). @ -As above X-rays interpreted by me (1pt min.). @ -Chest x-ray shows no acute abnormality CT interpreted by me (1pt min.). @ -None done U/S interpreted by me (1pt. min.). @ -None done What testing was considered but not performed or refused? (CT, X-rays, U/S, labs)? Why? @ -None What meds were considered but not given or refused? Why? @ -None Did you discuss the management of the patient with other professionals (professionals i.e. Dr., PA, AIRCRAFT ACCESSORIES MECHANIC, lab, RT, psych nurse, health and social care teacher, stained glass joiner, teacher, global safety officer, pillowcase cleaner)? Give summary @ -I spoke with the [facility] hospitalist and they agreed to admit the patient Was smoking cessation discussed for >3mins.? @ -No Was critical care preformed (if so, how long)? @ -No Were there social determinants of health that impacted care today? How? (Homelessness, low income, unemployed, alcoholism, drug addiction, transportation, low edu. Level, literacy, decrease access to med. care, fpc, rehab)? @ -No Was there de-escalation of care discussed even if they declined (Discuss DNR or withdrawal of care, Hospice)? DNR status @ -No What co-morbidities impacted this encounter? (DM, HTN, Smoking, COPD, CAD, Cancer, CVA, ARF, Chemo, Hep., AIDS, mental health diagnosis, sleep apnea, morbid obesity)? @ -None Was patient admitted / discharged? Hospital course, mention meds given and route, prescriptions, significant lab abnormalities, going to OR and other pertinent info. @ -Patient was given aspirin and Nitropaste to the emergency department as well as Ativan because it was very anxious. Patient's lab work showed that he was dehydrated his sodium was also done so was given a liter of normal saline. Patient had a chest x-ray that showed no acute abnormality however patient did avoid concentrated urinalysis ordered. I spoke with Dr. washburn of discharge to hospice he agreed to admit the patient to the patient wrote admitting orders. Undiagnosed new problem with uncertain prognosis? @ -No Drug Therapy requiring intensive monitoring for toxicity (Heparin, Nitro, Insulin, Cardizem)? @ -No Were any procedures done? @ -No Diagnosis/symptom? @ -Chest pain Acute, or Chronic, or Acute on Chronic? @ -Acute Uncomplicated (without systemic symptoms) or Complicated (systemic symptoms)? @ -Complicated Side effects of treatment? @ -No Exacerbation, Progression, or Severe Exacerbation? @ -No Poses a threat to life or bodily function? How? (Chest pain, [place], [place], pneumonia, PE, COPD, DKA, ARF, appy, cholecystitis, CVA, Diverticulitis, Homicidal, Suicidal, threat to staff... and all critical care pts) @ -Yes this could lead to an [place] and end organ dysfunction Diagnosis/symptom? @ -Dehydration Acute, or Chronic, or Acute on Chronic? @ -Acute Uncomplicated (without systemic symptoms) or Complicated (systemic symptoms)? @ -default Side effects of treatment? @ -none Exacerbation, Progression, or Severe Exacerbation] @ -no Poses a threat to life or bodily function? @ -no Diagnosis/symptom? @ -Hyponatremia Acute, or Chronic, or Acute on Chronic? @ -Acute Uncomplicated (without systemic symptoms) or Complicated (systemic symptoms)? @ -Complicated Side effects of treatment? @ -none Exacerbation, Progression, or Severe Exacerbation] @ -no Poses a threat to life or bodily function? @ -no - Lab Data Result diagrams: 10/19/23 09:10/19/23 09: Lab Results 10/19/23 10/19/23 10/19/23 Range/Units : 09: 09: WBC 15.7 H (3.8-10.6) k/uL RBC 5.65 (4.30-5.90) m/uL Hgb 18.1 H (13.0-17.5) gm/dL Hct 53.2 H (39.0-53.0) % MCV 94.2 (80.0-100.0) fL MCH 32.1 (25.0-35.0) pg MCHC 34.1 (31.0-37.0) g/dL RDW 12.9 (11.5-15.5) % Plt Count 350 (150-450) k/uL MPV 8.4 Neutrophils % 79 % Lymphocytes % 12 % Monocytes % 6 % Eosinophils % 1 % Basophils % 0 % Neutrophils # 12.4 H (1.3-7.7) k/uL Lymphocytes # 1.9 (1.0-4.8) k/uL Monocytes # 0.9 (0-1.0) k/uL Eosinophils # 0.1 (0-0.7) k/uL Basophils # 0.1 (0-0.2) k/uL PT 9.9 L (10.0-12.5) sec INR 0.9 (<1.2) APTT 24.8 (22.0-30.0) sec Sodium 129 L (137-145) mmol/L Potassium 5.2 H (3.5-5.1) mmol/L Chloride 87 L (98-107) mmol/L Carbon Dioxide 24 (22-30) mmol/L Anion Gap 18 mmol/L BUN 44 H (9-20) mg/dL Creatinine 1.21 (0.66-1.25) mg/dL Est GFR (CKD-EPI)AfAm 77 (>60 ml/min/1.73 sqM) Est GFR (CKD-EPI)NonAf 66 (>60 ml/min/1.73 sqM) Glucose 422 H (74-99) mg/dL Calcium 10.6 H (8.4-10.2) mg/dL Magnesium 1.7 (1.6-2.3) mg/dL Total Bilirubin 1.2 (0.2-1.3) mg/dL AST 31 (17-59) U/L ALT 32 (4-49) U/L Alkaline Phosphatase 112 (38-126) U/L Troponin I (0.000-0.034) ng/mL Total Protein 7.6 (6.3-8.2) g/dL Albumin 4.5 (3.5-5.0) g/dL Serum Alcohol <10 mg/dL 10/19/23 Range/Units 09:23 WBC (3.8-10.6) k/uL RBC (4.30-5.90) m/uL Hgb (13.0-17.5) gm/dL Hct (39.0-53.0) % MCV (80.0-100.0) fL MCH (25.0-35.0) pg MCHC (31.0-37.0) g/dL RDW (11.5-15.5) % Plt Count (150-450) k/uL MPV Neutrophils % % Lymphocytes % % Monocytes % % Eosinophils % % Basophils % % Neutrophils # (1.3-7.7) k/uL Lymphocytes # (1.0-4.8) k/uL Monocytes # (0-1.0) k/uL Eosinophils # (0-0.7) k/uL Basophils # (0-0.2) k/uL PT (10.0-12.5) sec INR (<1.2) APTT (22.0-30.0) sec Sodium (137-145) mmol/L Potassium (3.5-5.1) mmol/L Chloride (98-107) mmol/L Carbon Dioxide (22-30) mmol/L Anion Gap mmol/L BUN (9-20) mg/dL Creatinine (0.66-1.25) mg/dL Est GFR (CKD-EPI)AfAm (>60 ml/min/1.73 sqM) Est GFR (CKD-EPI)NonAf (>60 ml/min/1.73 sqM) Glucose (74-99) mg/dL Calcium (8.4-10.2) mg/dL Magnesium (1.6-2.3) mg/dL Total Bilirubin (0.2-1.3) mg/dL AST (17-59) U/L ALT (4-49) U/L Alkaline Phosphatase (38-126) U/L Troponin I 0.021 (0.000-0.034) ng/mL Total Protein (6.3-8.2) g/dL Albumin (3.5-5.0) g/dL Serum Alcohol mg/dL Disposition Clinical Impression: Chest pain, Hyponatremia, Dehydration Disposition: ADMITTED IP TO THIS HOSP Referrals: Perla Mota MD [Primary Care Provider] - 1-2 days Time of Disposition: 11:44
[2023-10-19 09:58] LABS: Basophils # (A) 0.1 k/uL (0-0.2); Basophils % (A) 0 %; Eosinophils # (A) 0.1 k/uL (0-0.7); Eosinophils % (A) 1 %; HCT 53.2 % (39.0-53.0); HGB 18.1 gm/dL (13.0-17.5); Lymphocytes # (A) 1.9 k/uL (1.0-4.8); Lymphocytes % (A) 12 %; MCH 32.1 pg (25.0-35.0); MCHC 34.1 g/dL (31.0-37.0); MCV 94.2 fL (80.0-100.0); Mean Platelet Volume 8.4; Monocytes # (A) 0.9 k/uL (0-1.0); Monocytes % (A) 6 %; Neutrophils # (A) 12.4 k/uL (1.3-7.7); Neutrophils % (A) 79 %; Platelet Count 350 k/uL (150-450); RBC 5.65 m/uL (4.30-5.90); RDW 12.9 % (11.5-15.5); WBC 15.7 k/uL (3.8-10.6)
--- NOTE | 2023-10-19 10:06 | XR ---
EXAMINATION TYPE: XR chest 2V DATE OF EXAM: 10/19/2023 COMPARISON: 08/21/2022 HISTORY: 58-year-old male with chest pain TECHNIQUE: PA and lateral views FINDINGS: The cardiomediastinal silhouette, aorta, and pulmonary vasculature are within normal limits. Lungs an d pleural spaces are clear. IMPRESSION: No acute cardiopulmonary process.
[2023-10-19 10:32] LABS: ALT 32 U/L (4-49); AST 31 U/L (17-59); African American GFR (CKD) 77 (>60 ml/min/1.73 sqM); Albumin 4.5 g/dL (3.5-5.0); Alcohol <10 mg/dL; Alkaline Phosphatase 112 U/L (38-126); Anion Gap 18 mmol/L; Blood Urea Nitrogen 44 mg/dL (9-20); Calcium 10.6 mg/dL (8.4-10.2); Carbon Dioxide 24 mmol/L (22-30); Chloride 87 mmol/L (98-107); Glucose 422 mg/dL (74-99); Magnesium 1.7 mg/dL (1.6-2.3); Non-African American GFR(CKD) 66 (>60 ml/min/1.73 sqM); Sodium 129 mmol/L (137-145); Total Bilirubin 1.2 mg/dL (0.2-1.3); Total Protein 7.6 g/dL (6.3-8.2)
[2023-10-19 10:36] LABS: Potassium 5.2 mmol/L (3.5-5.1)
[2023-10-19 10:43] LABS: INR 0.9 (<1.2); Partial Thromboplastin Time 24.8 sec (22.0-30.0); Prothrombin Time 9.9 sec (10.0-12.5)
[2023-10-19] MEDS ORDERED: SODIUM CHLORIDE 0.9% 500 ML 500 ML IV ONE (11:02)
[2023-10-19] MEDS: SODIUM CHLORIDE 0.9% 1,000 ML IV SCH (11:30)
[2023-10-19] MEDS ORDERED: NITROGLYCERIN SL TABS 0.4 MG TAB SUBLINGUAL PRN (11:44)
[2023-10-19] MEDS: NITROGLYCERIN OINT 1 INCH/GM PACKET TOPICAL SCH ×2 (13:22→17:33)
[2023-10-19] MEDS: MAGNESIUM SULFATE-D5W PMX 1 GM in DEXTROSE/WATER 1 100ML.BAG IVPB SCH ×2 (13:22→14:46)
--- NOTE | 2023-10-19 13:37 | P.HPIM ---
History of Present Illness 58-year-old male came in with complaints of chest pain has been going on for 34 days pressure-like sensation patient will also complaining of neck pain and a and pain between the shoulder blades although patient denied any abdominal pain nausea patient denied and diaphoresis lightheadedness. Patient has mild shortness of breath patient had history of coronary artery disease with stents in the past had a stress test about couple years ago which was normal. Patient's troponins 2 of them are negative so far. Patient has seen the PCP about a week ago who started him on aspirin. Patient blood sugars are high patient is diabetic doesn't use any medications at home for that. Patient is on lisinopril for hypertension blood pressure is low normal at this time patient drinks about 5 beers a day is also on diuretic with the low sodium, sodium on admission is 124. Patient presently denied any chest pressure. Patient has elevated creatinine 1.21 baseline creatinine is within normal limits EKG showed sinus tachycardia without any acute ST-T wave changes on admission but the sinus tachycardia resolved at this time. Patient is receiving IV fluids REVIEW OF SYSTEMS: CONSTITUTIONAL: No fever, no malaise, no fatigue. HEENT: No recent visual problems or hearing problems. Denied any sore throat. CARDIOVASCULAR: No orthopnea, PND, no palpitations, no syncope. PULMONARY: no cough, no hemoptysis. GASTROINTESTINAL: No diarrhea, no nausea, no vomiting, no abdominal pain. NEUROLOGICAL: No headaches, no weakness, no numbness. HEMATOLOGICAL: Denies any bleeding or petechiae. GENITOURINARY: Denies any burning micturition, frequency, or urgency. MUSCULOSKELETAL/RHEUMATOLOGICAL: Denies any joint pain, swelling, or any muscle pain. ENDOCRINE: Denies any polyuria or polydipsia. The rest of the 14-point review of systems is negative. PHYSICAL EXAMINATION: GENERAL: The patient is alert and oriented x3, not in any acute distress. Well developed, well nourished. HEENT: Pupils are round and equally reacting to light. EOMI. No scleral icterus. No conjunctival pallor. Normocephalic, atraumatic. No pharyngeal erythema. No thyromegaly. CARDIOVASCULAR: S1 and S2 present. No murmurs, rubs, or gallops. PULMONARY: Chest is clear to auscultation, no wheezing or crackles. ABDOMEN: Soft, nontender, nondistended, normoactive bowel sounds. No palpable organomegaly. MUSCULOSKELETAL: No joint swelling or deformity. EXTREMITIES: No cyanosis, clubbing, or pedal edema. NEUROLOGICAL: Gross neurological examination did not reveal any focal deficits. SKIN: No rashes. Assessment and plan -Chest pain rule out a concurrent syndromes, unstable angina. Cardiology will evaluate the patient patient probably will need stress test nicotine cessation counseling was provided. Repeat one more set of troponin and EKG. -Acute renal failure secondary to diuretics and hyperkalemia patient was started on IV fluids which will be continued hold off on blood pressure medications temporally -Hypertension management as mentioned above -Possible type 2 diabetes mellitus and globin A1c will be obtained patient underwent sliding scale insulin along with Accu-Cheks -COPD without any acute exacerbation nicotine cessation counseling was provided -Leukocytosis without any evidence of infection and reactive in nature DVT prophylaxis: On IV heparin Past Medical History Past Medical History: Diabetes Mellitus, Hyperlipidemia, Hypertension Additional Past Medical History / Comment(s): back pain History of Any Multi-Drug Resistant Organisms: None Reported Past Surgical History: Heart Catheterization With Stent Additional Past Surgical History / Comment(s): oral Past Anesthesia/Blood Transfusion Reactions: No Reported Reaction Past Psychological History: No Psychological Hx Reported, Depression Smoking Status: Current every day smoker Past Alcohol Use History: None Reported Past Drug Use History: None Reported Medications and Allergies Home Medications Medication Instructions Recorded Confirmed Type metFORMIN HCL [Glucophage] 1,000 mg PO DAILY 07/10/15 10/19/23 History Aspirin EC [Ecotrin Low Dose] 81 mg PO DAILY 10/19/23 10/19/23 History Levothyroxine Sodium [Synthroid] 25 mcg PO DAILY 10/19/23 10/19/23 History hydroCHLOROthiazide [Hydrodiuril] 25 mg PO DAILY 10/19/23 10/19/23 History lisinopriL [Zestril] 20 mg PO DAILY 10/19/23 10/19/23 History Allergies Allergy/AdvReac Type Severity Reaction Status Date / Time Penicillins AdvReac Confusion Verified 10/19/23 13:09 Physical Exam Vitals: Vital Signs Temp Pulse Pulse Resp BP Pulse Ox 10/19/23 13:00 87 18 109/81 98 10/19/23 12:00 82 17 121/82 98 10/19/23 10:01 20 10/19/23 10:00 75 10/19/23 09:23 100 20 137/90 98 10/19/23 09:16 98.2 F 109 H 22 132/77 99 Intake and Output 10/18/23 10/19/23 10/19/23 22:59 06:59 14:59 Other: Weight 86.183 kg Results CBC & Chem 7: 10/19/23 09:23 12 09:23 Labs: Abnormal Lab Results - Last 24 Hours (Table) 10/19/23 10/19/23 10/19/23 Range/Units : 09: 09:23 WBC 15.7 H (3.8-10.6) k/uL Hgb 18.1 H (13.0-17.5) gm/dL Hct 53.2 H (39.0-53.0) % Neutrophils # 12.4 H (1.3-7.7) k/uL PT 9.9 L (10.0-12.5) sec Sodium 129 L (137-145) mmol/L Potassium 5.2 H (3.5-5.1) mmol/L Chloride 87 L (98-107) mmol/L BUN 44 H (9-20) mg/dL Glucose 422 H (74-99) mg/dL Calcium 10.6 H (8.4-10.2) mg/dL
[2023-10-19] MEDS ORDERED: DEXTROSE 50% SYRINGE 50 ML IVP PRN ×2 (14:35)
[2023-10-19 15:52] LABS: Basophils % (A) 0 %; Eosinophils # (A) 0.1 k/uL (0-0.7); Eosinophils % (A) 1 %; HCT 47.8 % (39.0-53.0); HGB 16.3 gm/dL (13.0-17.5); Lymphocytes # (A) 2.5 k/uL (1.0-4.8); Lymphocytes % (A) 21 %; MCH 31.8 pg (25.0-35.0); MCHC 34.2 g/dL (31.0-37.0); Mean Platelet Volume 7.6; Monocytes # (A) 0.9 k/uL (0-1.0); Monocytes % (A) 7 %; Neutrophils # (A) 8.2 k/uL (1.3-7.7); Neutrophils % (A) 68 %; Platelet Count 307 k/uL (150-450); RBC 5.14 m/uL (4.30-5.90); RDW 12.8 % (11.5-15.5)
[2023-10-19 17:26] LABS: Glucose,Whole Blood 322 mg/dL (70-110)
[2023-10-19] MEDS ORDERED: INSULIN ASPART (NovoLOG) 100 UNIT/ML VIAL SQ SCH (17:30)
[2023-10-19] MEDS: INSULIN ASPART (NovoLOG) 100 UNIT/ML VIAL SQ SCH ×2 (17:33→21:35)
[2023-10-19 21:32] LABS: Glucose,Whole Blood 378 mg/dL (70-110)
[2023-10-20] MEDS: NITROGLYCERIN OINT 1 INCH/GM PACKET TOPICAL SCH ×4 (00:03→18:13)
[2023-10-20] MEDS ORDERED: ACETAMINOPHEN TAB 325 MG TAB PO STA (00:13)
[2023-10-20] MEDS: LEVOTHYROXINE 25 MCG TAB PO SCH (05:53)
[2023-10-20] MEDS: SODIUM CHLORIDE 0.9% 1,000 ML IV SCH ×3 (06:21→20:32)
[2023-10-20 06:43] LABS: Glucose,Whole Blood 256 mg/dL (70-110)
[2023-10-20] MEDS: INSULIN ASPART (NovoLOG) 100 UNIT/ML VIAL SQ SCH ×4 (07:45→21:03)
[2023-10-20 07:57] LABS: Appearance,Urine Clear (Clear); Color,Urine Orange
[2023-10-20 07:59] LABS: Protein,Urine Negative (Negative)
[2023-10-20 08:00] LABS: Bilirubin,Urine Negative (Negative); Blood,Urine Negative (Negative); Glucose,Urine (UA) 4+ (Negative); Ketones,Urine Trace (Negative); Leukocyte Esterase,Urine Negative (Negative); Nitrite,Urine Negative (Negative); Urobilinogen,Urine 0.2 mg/dL (<2.0)
[2023-10-20] MEDS: lisinopriL 5 MG TAB PO SCH (08:45)
[2023-10-20] MEDS: ASPIRIN 81 MG PO SCH (08:45)
[2023-10-20] MEDS ORDERED: ASPIRIN 325 MG TAB PO SCH (09:00)
[2023-10-20] MEDS ORDERED: lisinopriL 20 MG TAB PO SCH (09:00)
--- NOTE | 2023-10-20 10:20 | P.CRDCN ---
History of Present Illness Consult date: 10/20/23 Consult reason: chest pain History of present illness: History of present illness: This is a 58-year-old male with past medical history of hypertension, hypothyroidism, diabetes, coronary artery disease with previous stent of the LAD, history of CVA. He was seen in the office with Dr. Beltran in April 2022. Patient states he lost his insurance and he has been off all of his medications for the past year. Patient was resumed back on some of his medications about 4-5 days ago. We have been asked to evaluate the patient for chest pain. He complained of chest pain with an to the left neck area he did receive nitro paste which seems to help a lot. He states he feels a lot better at the time of evaluation. Patient is an active smoker currently at a half a pack per day, he drinks alcohol 3-4 beers per day. He also uses marijuana but not every day. EKG sinus tach/sinus rhythm 2, no acute ST changes Chest x-ray: COPD WBC initially 15.7 F 12, hemoglobin 16.3, platelet count 307. INR 0.9. Sodium 129, potassium 5.2, chloride 87, CO2 24, BUN 44 and creatinine 1.21. Blood sugar or 122. Hemoglobin A1c 14.1. Troponin negative 3. Liver function tests are within normal limits. Urinalysis positive for glucose 4+ and ketones trace. Serum alcohol less than 10. Home cardiac medications: Aspirin 81 mg daily, hydrochlorothiazide 25 mg daily, lisinopril 20 mg daily. Patient is also on metformin and levothyroxine. Cardiac catheterization 02/[address] Beltran revealed near total occlusion of the mid LAD. Significant disease involving the first diagonal which is small in caliber. Diffuse disease involving the PDA and PLV. Subsequently, patient underwent stenting of the mid LAD by Dr. To. Echocardiogram 03/09/2021 revealed EF of 40-45%, trace mitral regurgitation, trace tricuspid regurgitation. Review Of Systems: At the time of my exam: CONSTITUTIONAL: Denies fever or chills. + neck pain CARDIOVASCULAR: Denies chest pain, Denies shortness of breath, no orthopnea, PND or palpitations. RESPIRATORY: Denies cough. GASTROINTESTINAL: Denies abdominal pain, diarrhea, constipation, nausea or vomiting. MUSCULOSKELETAL: Denies myalgias. NEUROLOGIC: Denies numbness, tingling or weakness. ENDOCRINE: Denies fatigue, weight change, polydipsia or polyurina. GENITOURINARY: Denies burning, hematuria or urgency with micturation. HEMATOLOGIC: Denies history of anemia or bleeding. Physical examination: Gen: This is a 58 year old male resting in bed and appears to be comfortable, no acute distress. VS: reviewed HEENT: Head is atraumatic, normocephalic. Pupils equal, round. Sclerae is anicteric. NECK: Supple. No JVD. LUNGS: Clear to auscultation. No wheezes or rhonchi. No intercostal retractions. HEART: Regular rate and rhythm. No murmur. ABDOMEN: Soft No tenderness. EXTREMITIES: No pedal edema. No calf tenderness. NEUROLOGICAL: Patient is awake, alert and oriented x3. Assessment: Chest pain, acute coronary syndrome ruled out History of coronary artery disease with previous stenting of the LAD History of CVA 03/2021 Diabetes mellitus type 2 uncontrolled with A1c 14 Hypertension Hypothyroidism Active tobacco use and dependence Daily alcohol abuse Noncompliance Plan: Resume patient's home cardiac medications Add atorvastatin 40 mg daily Schedule for Cardiolite stress test for tomorrow as patient ate his breakfast in the emergency center Obtain TSH Obtain 2-D echocardiogram and Doppler study to assess cardiac structure and function Smoking cessation Alcohol cessation Further recommendations to follow based upon clinical course Thank you kindly for this consultation. Nurse practitioner note has been reviewed, I agree with documented findings and plan of care. Patient was seen and examined. Past Medical History Past Medical History: Diabetes Mellitus, Hyperlipidemia, Hypertension Additional Past Medical History / Comment(s): back pain History of Any Multi-Drug Resistant Organisms: None Reported Past Surgical History: Heart Catheterization With Stent Additional Past Surgical History / Comment(s): oral Past Anesthesia/Blood Transfusion Reactions: No Reported Reaction Past Psychological History: No Psychological Hx Reported, Depression Smoking Status: Current every day smoker Past Alcohol Use History: None Reported Past Drug Use History: None Reported Medications and Allergies Home Medications Medication Instructions Recorded Confirmed Type metFORMIN HCL [Glucophage] 1,000 mg PO DAILY 07/10/15 10/19/23 History Aspirin EC [Ecotrin Low Dose] 81 mg PO DAILY 10/19/23 10/19/23 History Levothyroxine Sodium [Synthroid] 25 mcg PO DAILY 10/19/23 10/19/23 History hydroCHLOROthiazide [Hydrodiuril] 25 mg PO DAILY 10/19/23 10/19/23 History lisinopriL [Zestril] 20 mg PO DAILY 10/19/23 10/19/23 History Allergies Allergy/AdvReac Type Severity Reaction Status Date / Time Penicillins AdvReac Confusion Verified 10/19/23 13:09 Physical Exam Vitals: Vital Signs Temp Pulse Pulse Resp BP Pulse Ox 10/20/23 07:40 98.8 F 86 18 123/92 98 10/20/23 04:00 85 16 105/93 95 10/20/23 02:00 83 18 92/75 94 L 10/20/23 00:00 92 18 106/87 96 10/19/23 21:00 92 20 91/58 93 L 10/19/23 20:00 94 18 95/68 92 L 10/19/23 19:00 90 20 113/90 95 10/19/23 18:10 93 18 113/90 94 L 10/19/23 16:24 88 18 125/81 97 10/19/23 13:00 87 18 109/81 98 10/19/23 12:00 82 17 121/82 98 10/19/23 10:01 20 10/19/23 10:00 75 10/19/23 09:23 100 20 137/90 98 10/19/23 09:16 98.2 F 109 H 22 132/77 99 Results 10/19/23 15:26 10/19/23 09:23 Cardiac Enzymes 10/19/23 10/19/23 10/19/23 Range/Units 09:23 09:23 12:14 AST 31 (17-59) U/L Troponin I 0.021 <0.012 (0.000-0.034) ng/mL 10/19/23 Range/Units 15:26 AST (17-59) U/L Troponin I <0.012 (0.000-0.034) ng/mL Coagulation 10/19/23 Range/Units 09:23 PT 9.9 L (10.0-12.5) sec APTT 24.8 (22.0-30.0) sec CBC 10/19/23 10/19/23 Range/Units 09:23 15:26 WBC 15.7 H 12.0 H (3.8-10.6) k/uL RBC 5.65 5.14 (4.30-5.90) m/uL Hgb 18.1 H 16.3 (13.0-17.5) gm/dL Hct 53.2 H 47.8 (39.0-53.0) % Plt Count 350 307 (150-450) k/uL Comprehensive Metabolic Panel 10/19/23 Range/Units 09:23 Sodium 129 L (137-145) mmol/L Potassium 5.2 H (3.5-5.1) mmol/L Chloride 87 L (98-107) mmol/L Carbon Dioxide 24 (22-30) mmol/L BUN 44 H (9-20) mg/dL Creatinine 1.21 (0.66-1.25) mg/dL Glucose 422 H (74-99) mg/dL Calcium 10.6 H (8.4-10.2) mg/dL AST 31 (17-59) U/L ALT 32 (4-49) U/L Alkaline Phosphatase 112 (38-126) U/L Total Protein 7.6 (6.3-8.2) g/dL Albumin 4.5 (3.5-5.0) g/dL Current Medications Generic Name Dose Route Start Last Admin Trade Name Freq PRN Reason Stop Dose Admin Aspirin 81 mg 10/20/23 09:00 Aspirin 81 Mg PO DAILY FEMI Dextrose/Water 25 ml 10/19/23 14:35 Dextrose 50% Syringe 50 Ml IVP PER PROTOCOL PRN Hypoglycemia Protocol Dextrose/Water 50 ml 10/19/23 14:35 Dextrose 50% Syringe 50 Ml IVP PER PROTOCOL PRN Hypoglycemia Protocol Sodium Chloride 1,000 mls @ 75 mls/hr 10/19/23 11:15 10/20/23 06:21 Saline 0.9% IV 75 mls/hr .[id number] FEMI Administration Insulin Aspart 0 unit 10/19/23 17:30 10/20/23 07:45 Insulin Aspart (Novolog) 100 Unit/Ml Vial SQ 6 unit ACHS FEMI Administration Protocol Levothyroxine Sodium 25 mcg 10/20/23 06:30 10/20/23 05:53 Levothyroxine 25 Mcg Tab PO 25 mcg DAILY@0630 FEMI Administration Nitroglycerin 0.4 mg 10/19/23 11:44 Nitroglycerin Sl Tabs 0.4 Mg Tab SUBLINGUAL Q5M PRN Chest Pain Nitroglycerin 1 inch 10/19/23 13:00 10/20/23 05:53 Nitroglycerin Oint 1 Inch/Gm Packet TOPICAL 1 inch Q6HR FEMI Administration 10/19/23 15:26 10/19/23 09:23
[2023-10-20 11:28] LABS: Blood Urea Nitrogen 33.2 mg/dL (9.0-27.0); Carbon Dioxide 27.8 mmol/L (21.6-31.8); Chloride 90 mmol/L (96-109); Glucose 245 mg/dL (70-110); LDL Cholesterol,Calculated 110.1 mg/dL (0.0-131.0); Potassium 4.1 mmol/L (3.5-5.5); Sodium 133 mmol/L (135-145)
[2023-10-20] MEDS: INSULIN DETEMIR (LEVEMIR) 100 UNIT/ML SYR SQ SCH (11:42)
[2023-10-20 12:18] LABS: Glucose,Whole Blood 214 mg/dL (70-110)
[2023-10-20 14:26] VITALS: BMI 27.2
[2023-10-20 17:06] LABS: Glucose,Whole Blood 285 mg/dL (70-110)
[2023-10-20 20:55] LABS: Glucose,Whole Blood 270 mg/dL (70-110)
[2023-10-20] MEDS ORDERED: ATORVASTATIN 40 MG TAB PO SCH (21:00)
--- NOTE | 2023-10-20 21:25 | P.PN ---
Subjective Progress Note Date: 10/20/23 58-year-old male came in with complaints of chest pain has been going on for 34 days pressure-like sensation patient will also complaining of neck pain and a and pain between the shoulder blades although patient denied any abdominal pain nausea patient denied and diaphoresis lightheadedness. Patient has mild shortness of breath patient had history of coronary artery disease with stents in the past had a stress test about couple years ago which was normal. Patient's troponins 2 of them are negative so far. Patient has seen the PCP about a week ago who started him on aspirin. Patient blood sugars are high patient is diabetic doesn't use any medications at home for that. Patient is on lisinopril for hypertension blood pressure is low normal at this time patient drinks about 5 beers a day is also on diuretic with the low sodium, sodium on admission is 124. Patient presently denied any chest pressure. Patient has elevated creatinine 1.21 baseline creatinine is within normal limits EKG showed sinus tachycardia without any acute ST-T wave changes on admission but the sinus tachycardia resolved at this time. Patient is receiving IV fluids 10/20/2023 Patient resting in bed today reports chest pain has resolved at this time. He has recently re-established care with Dr. Nelson outpatient and resumed on his cardiac medications as well as metformin. States he has not been managing his bl ood sugar for the last 14 months due to lack of health insurance. His A1C is 14.1 states in the past it was between 6 and 7. Cardiology has stopped the nitro paste. He is being hydrated. Lipid panel done showing triglycerides 148, cholesterol 198, LDL 110, HDL 58.30. TSH 3.730. Sodium up to 133. Hem odynamically he is stable. Review of Systems Constitutional: Denied any fatigue denied any fever. Cardio vascular: denied any chest pain, palpitations Gastrointestinal: denied any nausea, vomiting, diarrhea Pulmonary: Denied any shortness of breath cough Neurologic denied any new focal deficits All inpatient medications were reviewed and appropriate changes in these medications as dictated in the interval history and assessment and plan. PHYSICAL EXAMINATION: GENERAL: The patient is alert and oriented x3, not in any acute distress. Well developed, well nourished. HEENT: Pupils are round and equally reacting to light. EOMI. No scleral icterus. No conjunctival pallor. Normocephalic, atraumatic. No pharyngeal erythema. No thyromegaly. CARDIOVASCULAR: S1 and S2 present. No murmurs, rubs, or gallops. PULMONARY: Chest is clear to auscultation, no wheezing or crackles. ABDOMEN: Soft, nontender, nondistended, normoactive bowel sounds. No palpable organomegaly. MUSCULOSKELETAL: No joint swelling or deformity. EXTREMITIES: No cyanosis, clubbing, or pedal edema. NEUROLOGICAL: Gross neurological examination did not reveal any focal deficits. SKIN: No rashes. Assessment and plan -Chest pain rule out acute coronary syndromes, unstable angina. Patient had breakfast today so stress test has been rescheduled for tomorrow. -Current nicotine use smoking cessation has been provided. -Acute renal failure secondary to diuretics and hyperkalemia has improved with IV hydration and will continue overnight repeat BMP In the AM. -Hypertension management resumed on lisinopril. -Possible type 2 diabetes mellitus and globin A1c will be obtained patient underwent sliding scale insulin along with Accu-Cheks -COPD without any acute exacerbation nicotine cessation counseling was provided -Leukocytosis without any evidence of infection and reactive in nature DVT prophylaxis: Subcu heparin The impression and plan of care has been dictated by Brittny Sinha Nurse Practitioner as directed. Dr. Delmer MD I have performed a history and physical examination and medical decision making of this patient, discussed the same with the dictator, and agree with the dictators assessment and plan as written, documented as a scribe. Based on total visit time, I have performed more than 50% of this visit. Objective - Vital Signs Vital signs: Vital Signs Temp 98.8 F 10/20/23 07:40 Pulse 86 10/20/23 07:40 Resp 18 10/20/23 07:40 BP 123/92 10/20/23 07:40 Pulse Ox 98 10/20/23 07:40 FiO2 Intake & Output 10/19/23 10/20/23 10/20/23 18:59 06:59 18:59 Intake Total 118 Balance 118 Weight 86.183 kg 86.183 kg Intake: Oral 118 - Labs CBC & Chem 7: 10/19/23 15:26 10/20/23 07:11 Labs: Abnormal Lab Results - Last 24 Hours (Table) 10/19/23 10/19/23 10/19/23 Range/Units 07:50 15:26 15:26 WBC 12.0 H (3.8-10.6) k/uL Neutrophils # 8.2 H (1.3-7.7) k/uL Sodium (135-145) mmol/L Chloride (96-109) mmol/L Anion Gap (4.00-12.00) mmol/L BUN (9.0-27.0) mg/dL BUN/Creatinine Ratio (12.00-20.00) Ratio Glucose (70-110) mg/dL POC Glucose (mg/dL) (70-110) mg/dL Hemoglobin A1c 14.1 H (<=6.0) % Urine Glucose (UA) 4+ H (Negative) Urine Ketones Trace H (Negative) 10/19/23 10/19/23 10/20/23 Range/Units 17:24 21:31 06:41 WBC (3.8-10.6) k/uL Neutrophils # (1.3-7.7) k/uL Sodium (135-145) mmol/L Chloride (96-109) mmol/L Anion Gap (4.00-12.00) mmol/L BUN (9.0-27.0) mg/dL BUN/Creatinine Ratio (12.00-20.00) Ratio Glucose (70-110) mg/dL POC Glucose (mg/dL) 322 H 378 H 256 H (70-110) mg/dL Hemoglobin A1c (<=6.0) % Urine Glucose (UA) (Negative) Urine Ketones (Negative) 10/20/23 10/20/23 Range/Units 07:11 12:16 WBC (3.8-10.6) k/uL Neutrophils # (1.3-7.7) k/uL Sodium 133 L (135-145) mmol/L Chloride 90 L (96-109) mmol/L Anion Gap 15.20 H (4.00-12.00) mmol/L BUN 33.2 H (9.0-27.0) mg/dL BUN/Creatinine Ratio 33.20 H (12.00-20.00) Ratio Glucose 245 H (70-110) mg/dL POC Glucose (mg/dL) 214 H (70-110) mg/dL Hemoglobin A1c (<=6.0) % Urine Glucose (UA) (Negative) Urine Ketones (Negative) Assessment and Plan Time with Patient: Less than 30
[2023-10-20] MEDS: HEPARIN SODIUM,PORCINE 5,000 UNIT/ML 1 ML VIAL SQ SCH (21:28)
[2023-10-21] MEDS: LEVOTHYROXINE 25 MCG TAB PO SCH (05:45)
[2023-10-21 05:48] LABS: Glucose,Whole Blood 190 mg/dL (70-110)
[2023-10-21] MEDS: INSULIN ASPART (NovoLOG) 100 UNIT/ML VIAL SQ SCH ×2 (06:24→13:44)
[2023-10-21 08:04] VITALS: RESP 20
[2023-10-21] MEDS: INSULIN DETEMIR (LEVEMIR) 100 UNIT/ML SYR SQ SCH (10:57)
[2023-10-21] MEDS: ASPIRIN 81 MG PO SCH (10:57)
[2023-10-21] MEDS: lisinopriL 5 MG TAB PO SCH (10:57)
[2023-10-21] MEDS: HEPARIN SODIUM,PORCINE 5,000 UNIT/ML 1 ML VIAL SQ SCH (11:06)
[2023-10-21 11:20] LABS: BUN/Creat Ratio 26.73 Ratio (12.00-20.00); Blood Urea Nitrogen 29.4 mg/dL (9.0-27.0); Calcium 9.7 mg/dL (8.7-10.3); Carbon Dioxide 27.6 mmol/L (21.6-31.8); Chloride 95 mmol/L (96-109); Glucose 216 mg/dL (70-110); Potassium 4.2 mmol/L (3.5-5.5); Sodium 136 mmol/L (135-145)
--- NOTE | 2023-10-21 11:45 | CA ---
Exercise Nuclear Stress Test Report Name: Carlie Bay Exam Date: 10/21/2023 09:53 Exam Location: [facility] Stress Ht (in): 70 Wt (lb): 190 BSA: 2.04 Ordering Phys: Chayo Ramos Referring Phys: SANDRA,, Technologist: Gamal Rosales Age: 58 Gender: M : 1965 Procedure CPT: Indications: Reflex order-Stress test ICD-10 Codes: Patient History: Medications: SEE CHART Meds past 24 hrs: Pretest Chest Pain: STRESS TEST Yanick Protocol Exercise Duration (min:sec): 05:[address] Depressions (mm): Angina Score: Shay Score: Resting HR (bpm): 100 Peak HR (bpm): 139 Resting BP (mmHg): 137 / 98 Peak BP (mmHg): 164 / 104 MPHR: 163 Target HR: 139 % MPHR: 85 METS: 7.1 Total Dose: Peak Dose: Atropine: Double Product: 30271 BP Response: Stress Termination: MAX EXERTION/TARGET HR Stress Symptoms: DIFFICULTY IN BREATHING Stress Summary: No reported chest pain or pressure ECG ANALYSIS Resting ECG: Normal sinus rhythm, first degree AV block, heart rate 101 beats a minute Stress ECG: No significant ST-T wave changes that are diagnostic for ischemia by ST segment analysis. CONCLUSIONS Poor exercise tolerance for patient's age achieving only 7.1 METS exercising for 5 minutes 51 seconds Nonischemic ECG response to treadmill exercise Normal clinical and hemodynamic response to exercise Please refer to the nuclear portion of the imaging for the complete interpretation of this study Dr Rosalio Calvo (Electronically Signed) Final Date: 21 October 2023 11:44
--- NOTE | 2023-10-21 12:16 | CA ---
Transthoracic Echo Report Name: Carlie Bay Age: 58 Gender: M : 1965 Exam Date: 10/20/2023 15:14 Exam Location: [facility] Echo Ht (in): 70 Wt (lb): 190 Ordering Physician: Chayo Ramos Attending/Referring Phys: [id number], Rachel Front End Engineer Marizol Reynolds [facility] Procedure CPT: Indications: LVF Cardiac Hx: Technical Quality: Fair Contrast 1: Definity Total Dose (mL): 6 Contrast 2: Total Dose (mL): MEASUREMENTS (Male / Female) Normal Values 2D ECHO LV Diastolic Diameter PLAX 3.4 cm 4.2 - 5.9 / 3.9 - 5.3 cm LV Systolic Diameter PLAX 2.6 cm IVS Diastolic Thickness 1.0 cm 0.6 - 1.0 / 0.6 - 0.9 cm LVPW Diastolic Thickness 1.0 cm 0.6 - 1.0 / 0.6 - 0.9 cm LV Relative Wall Thickness 0.6 DOPPLER AV Peak Velocity 100.8 cm/s AV Peak Gradient 4.1 mmHg AV Mean Velocity 76.7 cm/s AV Mean Gradient 2.5 mmHg AV Velocity Time Integral 14.6 cm LVOT Peak Velocity 92.3 cm/s LVOT Peak Gradient 3.4 mmHg LVOT Velocity Time Integral 13.8 cm Mitral E Point Velocity 54.2 cm/s Mitral A Point Velocity 74.8 cm/s Mitral E to A Ratio 0.7 MV Deceleration Time 213.0 ms LV E' Lateral Velocity 9.5 cm/s Mitral E to LV E' Lateral Ratio 5.7 LV E' Septal Velocity 7.7 cm/s Mitral E to LV E' Septal Ratio 7.0 Right Atrial Pressure 3.0 mmHg FINDINGS Left Ventricle Left ventricular wall thickness at upper limits of normal. Left ventricular cavity size normal. Left ventricular ejection fraction is estimated at 50-55%. No obvious regional wall motion abnormalities. Right Ventricle Normal right ventricular size. Unable to estimate the right ventricular systolic pressure. Right Atrium Normal right atrial size. Left Atrium Normal left atrial size. Mitral Valve Structurally normal mitral valve. No mitral regurgitation. Aortic Valve Aortic valve not well visualized. No aortic valve stenosis or regurgitation. Tricuspid Valve Structurally normal tricuspid valve. No tricuspid regurgitation. Pulmonic Valve Pulmonic valve not well visualized. Pericardium No pericardial effusion. Echo free space anterior to the right ventricle likely represents a fat pad. Aorta Normal size aortic root and proximal ascending aorta. CONCLUSIONS Left ventricular ejection fraction is estimated at 50-55%. No obvious regional wall motion abnormalities. No significant valvular dysfunction Epicardial fat RVSP could not be estimated Previewed by: Dr Rosalio Calvo (Electronically Signed) Final Date: 21 October 2023 12:15
[2023-10-21 12:34] LABS: Glucose,Whole Blood 494 mg/dL (70-110)
--- NOTE | 2023-10-21 12:45 | NM ---
EXAMINATION TYPE: NM stress cardiolite complete DATE OF EXAM: 10/21/2023 COMPARISON: NONE HISTORY: Chest pain TECHNIQUE: After the intravenous administration of 10.6 mCi Tc 99m Sestamibi - Cardiolite resting SP ECT images acquired 45 minutes post injection. At peak stress 25.7 mCi Tc 99m Sestamibi - Stress images obtained 12 minutes post injection The patient was stressed with 0.4mg Lexiscan. FINDINGS: No fixed defects are evident No reversible stress defects on Spect images Wall motion is normal Ejection fraction is calculated to be 66 %. IMPRESSION: 1. No stress-induced ischemic changes
--- NOTE | 2023-10-21 13:04 | P.PN ---
Subjective Progress Note Date: 10/21/23 History of present illness: This is a 58-year-old male with past medical history of hypertension, hypothyr oidism, diabetes, coronary artery disease with previous stent of the LAD, history of CVA. He was seen in the office with Dr. Beltran in April 2022. Patient states he lost his insurance and he has been off all of his medications for the past year. Patient was resumed back on some of his medications about 4- 5 days ago. We have been asked to evaluate the patient for chest pain. He complained of chest pain with an to the left neck area he did receive nitro paste which seems to help a lot. He states he feels a lot better at the time of evaluation. Patient is an active smoker currently at a half a pack per day, he drinks alcohol 3-4 beers per day. He also uses marijuana but not every day. EKG sinus tach/sinus rhythm 2, no acute ST changes Chest x-ray: COPD WBC initially 15.7 F 12, hemoglobin 16.3, platelet count 307. INR 0.9. Sodium 129, potassium 5.2, chloride 87, CO2 24, BUN 44 and creatinine 1.21. Blood sugar or 122. Hemoglobin A1c 14.1. Troponin negative 3. Liver function tests are within normal limits. Urinalysis positive for glucose 4+ and ketones trace. Serum alcohol less than 10. Home cardiac medications: Aspirin 81 mg daily, hydrochlorothiazide 25 mg daily, lisinopril 20 mg daily. Patient is also on metformin and levothyroxine. Cardiac catheterization 02/[address] Beltran revealed near total occlusion of the mid LAD. Significant disease involving the first diagonal which is small in caliber. Diffuse disease involving the PDA and PLV. Subsequently, patient underwent stenting of the mid LAD by Dr. To. Echocardiogram 03/09/2021 revealed EF of 40-45%, trace mitral regurgitation, trace tricuspid regurgitation. 10/21 Patient is seen in follow-up on the observation unit. He underwent a Cardiolite stress test today which was negative. Echocardiogram revealsEF of 50-55%. blood pressure 132/88, heart rate 67, afebrile, pulse ox 98% on room air. Physical examination: Gen: This is a 58 year old male resting in bed and appears to be comfortable, no acute distress. VS: reviewed HEENT: Head is atraumatic, normocephalic. Pupils equal, round. Sclerae is anicteric. NECK: Supple. No JVD. LUNGS: Clear to auscultation. No wheezes or rhonchi. No intercostal retractions. HEART: Regular rate and rhythm. No murmur. ABDOMEN: Soft No tenderness. EXTREMITIES: No pedal edema. No calf tenderness. NEUROLOGICAL: Patient is awake, alert and oriented x3. Assessment: Chest pain, acute coronary syndrome ruled out History of coronary artery disease with previous stenting of the LAD History of CVA 03/2021 Diabetes mellitus type 2 uncontrolled with A1c 14 Hypertension Hypothyroidism Active tobacco use and dependence Daily alcohol abuse Noncompliance Plan: continue patient's home cardiac medications continue atorvastatin 40 mg daily Smoking cessation Alcohol cessation patient is cleared for discharge from cardiology may follow-up with Dr. Calvo in 1-2 weeks. Nurse practitioner note has been reviewed, I agree with documented findings and plan of care. Patient was seen and examined. Objective - Vital Signs Vital signs: Vital Signs Temp 97.8 F 10/21/23 07:00 Pulse 67 10/21/23 07:00 Resp 20 10/21/23 07:00 BP 132/88 10/21/23 07:00 Pulse Ox 98 10/21/23 07:00 FiO2 Intake & Output 10/20/23 10/21/23 10/21/23 18:59 06:59 18:59 Intake Total 118 240 Balance 118 240 Weight 86.183 kg Intake: Oral 118 240 Other: Voiding Method Toilet # Voids 2 2 - Labs CBC & Chem 7: 10/19/23 15:26 10/21/23 05:55 Labs: Abnormal Lab Results - Last 24 Hours (Table) 10/20/23 10/20/23 10/21/23 Range/Units 17:05 20:54 05:47 Chloride (96-109) mmol/L Anion Gap (4.00-12.00) mmol/L BUN (9.0-27.0) mg/dL BUN/Creatinine Ratio (12.00-20.00) Ratio Glucose (70-110) mg/dL POC Glucose (mg/dL) 285 H 270 H 190 H (70-110) mg/dL 10/21/23 Range/Units 05:55 Chloride 95 L (96-109) mmol/L Anion Gap 13.40 H (4.00-12.00) mmol/L BUN 29.4 H (9.0-27.0) mg/dL BUN/Creatinine Ratio 26.73 H (12.00-20.00) Ratio Glucose 216 H (70-110) mg/dL POC Glucose (mg/dL) (70-110) mg/dL
[2023-10-21 14:35] VITALS: BP 136/96; PULSE 91; TEMP 98.1
== END 2023-10-21 14:47 | disposition home or self-care (01) ==
LOC: EC 09:05 → 6NMEDSUR 11:46
PROVIDERS: ADMIT Internal Medicine; ATTEND Internal Medicine
DX: R07.89 Other chest pain (principal); E87.1 Hypo-osmolality and hyponatremia; E86.0 Dehydration; E87.5 Hyperkalemia; N17.9 Acute kidney failure, unspecified; T50.2X5A Adverse effect of carbonic-anhydrase inhibitors, benzothiadiazides and other diuretics, initial encounter; E11.65 Type 2 diabetes mellitus with hyperglycemia; I25.10 Atherosclerotic heart disease of native coronary artery without angina pectoris; J44.9 Chronic obstructive pulmonary disease, unspecified; E78.00 Pure hypercholesterolemia, unspecified; I10 Essential (primary) hypertension; F10.10 Alcohol abuse, uncomplicated; E03.9 Hypothyroidism, unspecified; I08.1 Rheumatic disorders of both mitral and tricuspid valves; F32.A Depression, unspecified; I25.2 Old myocardial infarction; M54.2 Cervicalgia; M54.9 Dorsalgia, unspecified; R00.0 Tachycardia, unspecified; D72.829 Elevated white blood cell count, unspecified; Z79.82 Long term (current) use of aspirin; Z91.148 Patient's other noncompliance with medication regimen for other reason; Z59.7 Insufficient social insurance and welfare support; Z86.73 Personal history of transient ischemic attack (TIA), and cerebral infarction without residual deficits; Z95.5 Presence of coronary angioplasty implant and graft; Z79.84 Long term (current) use of oral hypoglycemic drugs; Z79.899 Other long term (current) drug therapy; Z79.890 Hormone replacement therapy; Z79.01 Long term (current) use of anticoagulants; Z88.0 Allergy status to penicillin; F17.210 Nicotine dependence, cigarettes, uncomplicated; Z71.6 Tobacco abuse counseling; Z82.49 Family history of ischemic heart disease and other diseases of the circulatory system
CPT/HCPCS: 96361 ×3; 96365; 96366; 96375; 99285; 36415; 93005 ×2; 93017; 93306; 80061; 80053; 80048 ×2; 84443; 83735 ×2; 84484; 85025; 85610; 85730; 81003; 80320; 83036; 71046; 78452; G0378 ×3; A9500; J2060; Q9957; J3475

== ENCOUNTER 2024-02-19 01:30 | Emergency (ER) | payer BC ==
[2024-02-19 01:40] LABS: Glucose,Whole Blood 375 mg/dL (70-110)
[2024-02-19 02:03] VITALS: RESP 18
--- NOTE | 2024-02-19 02:26 | ED ---
Extremity Problem HPI - General Source: patient Mode of arrival: ambulatory Limitations: no limitations <Latasha Martinez - Last Filed: 02/19/24 03:37> <Aly Dalton - Last Filed: 02/19/24 06:18> - General Chief complaint: Extremity Problem,Nontraumatic Stated complaint: left foot pain Time Seen by Provider: 02/19/24 01:41 - History of Present Illness Initial comments: 59-year-old male presenting with chief complaint of left foot pain. Pain has been ongoing for about 3 days. Patient denies any injury or trauma. Patient has history of uncontrolled type 2 diabetes, Hyperlipidemia, and is 1/2 pack/day smoker. Pain is worse with exertion. There is some discoloration and duskiness to the toes. He has history of sciatica. He states that there is a bump in between the first and second toe that is painful with pressure applied. Patient takes Neurontin daily, this is not helping the pain. (Latasha Martinez) - Related Data Home Medications Medication Instructions Recorded Confirmed metFORMIN HCL [Glucophage] 1,000 mg PO DAILY 07/10/15 10/19/23 Aspirin EC [Ecotrin Low Dose] 81 mg PO DAILY 10/19/23 10/19/23 Levothyroxine Sodium [Synthroid] 25 mcg PO DAILY 10/19/23 10/19/23 Previous Rx's Medication Instructions Recorded Atorvastatin [Lipitor] 40 mg PO HS #30 tab 10/21/23 Insulin Glargine,Hum.rec.anlog 15 units SQ DAILY #2 each 10/21/23 [Lantus Solostar Pen] Nitroglycerin Sl Tabs [Nitrostat] 0.4 mg SUBLINGUAL Q5M PRN #20 tab 10/21/23 lisinopriL [Zestril] 5 mg PO DAILY #30 tab 10/21/23 Allergies Allergy/AdvReac Type Severity Reaction Status Date / Time Penicillins AdvReac Confusion Verified 02/19/24 01:40 Review of Systems ROS Other: All systems not noted in ROS Statement are negative. <Latasha Martinez - Last Filed: 02/19/24 03:37> ROS Other: All systems not noted in ROS Statement are negative. <Aly Dalton - Last Filed: 02/19/24 06:18> ROS Statement: Those systems with pertinent positive or pertinent negative responses have been documented in the HPI. Past Medical History Past Medical History: CVA/TIA, Diabetes Mellitus, Hyperlipidemia, Hypertension, Myocardial Infarction (NM) Additional Past Medical History / Comment(s): back pain, stent History of Any Multi-Drug Resistant Organisms: None Reported Past Surgical History: Heart Catheterization With Stent Additional Past Surgical History / Comment(s): oral Past Anesthesia/Blood Transfusion Reactions: No Reported Reaction Date of Last Stent Placement:: 03/2021 Past Psychological History: No Psychological Hx Reported, Depression, PTSD Smoking Status: Current every day smoker Past Alcohol Use History: Daily Past Drug Use History: Marijuana <Latasha Martinez - Last Filed: 02/19/24 03:37> General Exam Limitations: no limitations General appearance: alert, in no apparent distress Head exam: Present: atraumatic, normocephalic Eye exam: Present: normal appearance, EOMI Neck exam: Present: normal inspection Respiratory exam: Absent: respiratory distress Cardiovascular Exam: Present: regular rate Left Foot/Toe exam: Present: full ROM, tenderness. Absent: swelling, deformity, erythema Neurovascular tendon exam: Present: abnormal cap refill (Delayed cap refill and duskiness noted to the left foot), extremity cold to touch (Left foot) Neurological exam: Present: alert, oriented X3 Psychiatric exam: Present: normal affect, normal mood Skin exam: Present: dry, intact <Latasha Martinez - Last Filed: 02/19/24 03:37> Extremities exam: Present: other (Left foot is dusky delayed cap refill, no Doppler signal in the DP or PT. Popliteal artery has Doppler signal.) <Aly Dalton - Last Filed: 02/19/24 06:18> Course Vital Signs 02/19/24 02/19/24 02/19/24 01:33 02:39 04:52 Temperature 98.5 F Pulse Rate 75 69 Respiratory 18 18 Rate Blood Pressure 171/88 127/96 O2 Sat by Pulse 97 96 Oximetry 02/19/24 06:15 Temperature Pulse Rate 72 Respiratory 18 Rate Blood Pressure 137/80 O2 Sat by Pulse 99 Oximetry Medical Decision Making - Lab Data Result diagrams: 02/19/24 02:19 02/19/24 02:19 <Latasha Martinez - Last Filed: 02/19/24 03:37> - Lab Data Result diagrams: 02/19/24 02:19 02/19/24 02:19 <Aly Dalton - Last Filed: 02/19/24 06:18> - Medical Decision Making Was pt. sent in by a medical professional or institution ([facility], DIVER PUMPER, urgent care, hospital, or custodial...) When possible be specific @ -No Did you speak to anyone other than the patient for history (EMS, parent, family, police, friend...)? What history was obtained from this source @ -No Did you review nursing and triage notes (agree or disagree)? Why? @ -I reviewed and agree with nursing and triage notes Were old charts reviewed (outside hosp., previous admission, EMS record, old EKG, old radiological studies, urgent care reports/EKG's, custodial records)? Report findings @ -No old charts were reviewed Differential Diagnosis (chest pain, altered mental status, abdominal pain women, abdominal pain men, vaginal bleeding, weakness, fever, dyspnea, syncope, head ache, dizziness, GI bleed, back pain, seizure, CVA, palpatations, mental health, musculoskeletal)? @ -Differential Musculoskeletal Muscular strain, contusion, ligament sprain, fracture, arthritis, septic arthritis, bursitis, cellulitis, muscle spasm, nerve compression, DVT, arterial occlusion, herpes zoster, electrolyte abnormality, tumor.... This is not meant to be in all inclusive list EKG interpreted by me (3pts min.). @ -As above X-rays interpreted by me (1pt min.). @ -None done CT interpreted by me (1pt min.). @ -CTA abdominal aorta with runoff, formal report is pending. By my inter pretation there does appear to be occlusion just slightly superior to the left ankle, which is consistent with the patient's exam U/S interpreted by me (1pt. min.). @ -None done What testing was considered but not performed or refused? (CT, X-rays, U/S, labs)? Why? @ -None What meds were considered but not given or refused? Why? @ -None Did you discuss the management of the patient with other professionals (professionals i.e. , RAJ, DIVER PUMPER, lab, RT, psych nurse, social media marketer, manager mission, teacher, traffic control officer, hospice case manager)? Give summary @ -No Was smoking cessation discussed for >3mins.? @ -No Was critical care preformed (if so, how long)? @ -No Were there social determinants of health that impacted care today? How? (Homelessness, low income, unemployed, alcoholism, drug addiction, cunningham sportation, low edu. Level, literacy, decrease access to med. care, nursing home, rehab)? @ -No Was there de-escalation of care discussed even if they declined (Discuss DNR or withdrawal of care, Hospice)? DNR status @ -No What co-morbidities impacted this encounter? (DM, HTN, Smoking, COPD, CAD, Cancer, CVA, ARF, Chemo, Hep., AIDS, mental health diagnosis, sleep apnea, morbid obesity)? @ -Diabetes, hyperlipidemia, smoking Was patient admitted / discharged? Hospital course, mention meds given and rou te, prescriptions, significant lab abnormalities, going to OR and other pertinent info. @ -59-year-old male presenting with chief complaint of left foot pain. Ongoing for 3 days. On exam the foot is dusky and has delayed capillary refill. No injury or trauma. Unable to obtain a signal with the Doppler. Lab work requires no action. CT angiography aorta with runoff report is pending. By my interpretation there does appear to be an occlusion to the left foot and ankle which is consistent with his exam. Patient is [facility] out [facility] Patient with 3 days of worsening left foot pain. Concern for arterial occlusion and ischemic left foot. Workup is initiated including laboratory testing, lactic acid. Other than hyperglycemia his laboratory testing is unremarkable including normal lactic acid. CT angiography shows concern for iliac artery occlusion on the left. This is discussed with Dr. Alexandre covering for vascular surgery. He does recommend transfer to [facility] for evaluation and treatment. The patient is heparinized in the emergency department. Case discussed with the transfer team at [facility]. Critical care time 35 minutes (Aly Dalton) - Lab Data Lab Results 02/19/24 02/19/24 02/19/24 Range/Units 01:33 02:19 02:19 WBC 9.6 (3.8-10.6) k/uL RBC 4.85 (4.30-5.90) m/uL Hgb 15.5 (13.0-17.5) gm/dL Hct 45.8 (39.0-53.0) % MCV 94.5 (80.0-100.0) fL MCH 31.9 (25.0-35.0) pg MCHC 33.8 (31.0-37.0) g/dL RDW 13.5 (11.5-15.5) % Plt Count 240 (150-450) k/uL MPV 8.2 Neutrophils % 55 % Lymphocytes % 33 % Monocytes % 7 % Eosinophils % 2 % Basophils % 1 % Neutrophils # 5.2 (1.3-7.7) k/uL Lymphocytes # 3.2 (1.0-4.8) k/uL Monocytes # 0.7 (0-1.0) k/uL Eosinophils # 0.2 (0-0.7) k/uL Basophils # 0.1 (0-0.2) k/uL Sodium 136 L (137-145) mmol/L Potassium 4.8 (3.5-5.1) mmol/L Chloride 104 (98-107) mmol/L Carbon Dioxide 24 (22-30) mmol/L Anion Gap 8 mmol/L BUN 24 H (9-20) mg/dL Creatinine 0.94 (0.66-1.25) mg/dL Est GFR (CKD-EPI)AfAm >90 (>60 ml/min/1.73 sqM) Est GFR (CKD-EPI)NonAf 89 (>60 ml/min/1.73 sqM) Glucose 339 H (74-99) mg/dL POC Glucose (mg/dL) 375 H (70-110) mg/dL POC Glu [employer] ID Achatz, Elizabeth Plasma Lactic Acid Phuc (0.7-2.0) mmol/L Calcium 9.6 (8.4-10.2) mg/dL Total Bilirubin 0.3 (0.2-1.3) mg/dL AST 30 (17-59) U/L ALT 31 (4-49) U/L Alkaline Phosphatase 144 H (38-126) U/L Total Protein 6.7 (6.3-8.2) g/dL Albumin 4.2 (3.5-5.0) g/dL 02/19/24 Range/Units 02:19 WBC (3.8-10.6) k/uL RBC (4.30-5.90) m/uL Hgb (13.0-17.5) gm/dL Hct (39.0-53.0) % MCV (80.0-100.0) fL MCH (25.0-35.0) pg MCHC (31.0-37.0) g/dL RDW (11.5-15.5) % Plt Count (150-450) k/uL MPV Neutrophils % % Lymphocytes % % Monocytes % % Eosinophils % % Basophils % % Neutrophils # (1.3-7.7) k/uL Lymphocytes # (1.0-4.8) k/uL Monocytes # (0-1.0) k/uL Eosinophils # (0-0.7) k/uL Basophils # (0-0.2) k/uL Sodium (137-145) mmol/L Potassium (3.5-5.1) mmol/L Chloride (98-107) mmol/L Carbon Dioxide (22-30) mmol/L Anion Gap mmol/L BUN (9-20) mg/dL Creatinine (0.66-1.25) mg/dL Est GFR (CKD-EPI)AfAm (>60 ml/min/1.73 sqM) Est GFR (CKD-EPI)NonAf (>60 ml/min/1.73 sqM) Glucose (74-99) mg/dL POC Glucose (mg/dL) (70-110) mg/dL POC Glu [employer] ID Plasma Lactic Acid Phuc 1.8 (0.7-2.0) mmol/L Calcium (8.4-10.2) mg/dL Total Bilirubin (0.2-1.3) mg/dL AST (17-59) U/L ALT (4-49) U/L Alkaline Phosphatase (38-126) U/L Total Protein (6.3-8.2) g/dL Albumin (3.5-5.0) g/dL Critical Care Time Critical Care Time: Yes Total Critical Care Time: 35 <Aly Dalton - Last Filed: 02/19/24 06:18> Disposition <Latasha Martinez - Last Filed: 02/19/24 03:37> Is patient prescribed a controlled substance at d/c from ED?: No Time of Disposition: 06:18 - Out of Hospital Transfer - Req. Specs Out of Hospital Transfer - Requested Specifics: Other Emergency Center ([facility]) <Aly Dalton - Last Filed: 02/19/24 06:18> Clinical Impression: Iliac artery occlusion, left, Ischemic pain of left foot Disposition: OTHER INSTITUTION NOT DEFINED Condition: Serious Referrals: Perla Mota MD [Primary Care Provider] - 1-2 days
[2024-02-19 02:38] LABS: ALT 31 U/L (4-49); AST 30 U/L (17-59); African American GFR (CKD) >90 (>60 ml/min/1.73 sqM); Albumin 4.2 g/dL (3.5-5.0); Alkaline Phosphatase 144 U/L (38-126); Anion Gap 8 mmol/L; Blood Urea Nitrogen 24 mg/dL (9-20); Calcium 9.6 mg/dL (8.4-10.2); Carbon Dioxide 24 mmol/L (22-30); Chloride 104 mmol/L (98-107); Glucose 339 mg/dL (74-99); Non-African American GFR(CKD) 89 (>60 ml/min/1.73 sqM); Potassium 4.8 mmol/L (3.5-5.1); Sodium 136 mmol/L (137-145); Total Bilirubin 0.3 mg/dL (0.2-1.3); Total Protein 6.7 g/dL (6.3-8.2)
[2024-02-19 02:41] VITALS: TEMP 98.5
[2024-02-19 03:03] LABS: Basophils # (A) 0.1 k/uL (0-0.2); Basophils % (A) 1 %; Eosinophils # (A) 0.2 k/uL (0-0.7); Eosinophils % (A) 2 %; HCT 45.8 % (39.0-53.0); HGB 15.5 gm/dL (13.0-17.5); Lymphocytes # (A) 3.2 k/uL (1.0-4.8); Lymphocytes % (A) 33 %; MCH 31.9 pg (25.0-35.0); MCHC 33.8 g/dL (31.0-37.0); MCV 94.5 fL (80.0-100.0); Mean Platelet Volume 8.2; Monocytes # (A) 0.7 k/uL (0-1.0); Monocytes % (A) 7 %; Neutrophils # (A) 5.2 k/uL (1.3-7.7); Neutrophils % (A) 55 %; Platelet Count 240 k/uL (150-450); RBC 4.85 m/uL (4.30-5.90); RDW 13.5 % (11.5-15.5); WBC 9.6 k/uL (3.8-10.6)
--- NOTE | 2024-02-19 05:57 | CT ---
EXAMINATION TYPE: CT angio abd aorta w/Runoff DATE OF EXAM: 02/19/2024 COMPARISON: Prior noncontrast CT March 02, 2020 HISTORY: PT presents with left leg/foot pain for the past 3 days. [address] DLP: 2479.4 mGycm, Automated Exposure Control for Dose Reduction was Utilized. CONTRAST: CTA scan of the abdomen and pelvis with bilateral lower extremity runoff is performed without oral an d without and with IV Contrast, patient injected with 100 mL of Isovue 370. FINDINGS: VASCULAR: Mild calcified plaque of the aorta extends into branch vessels. Patent single renal arterie s bilaterally without significant stenosis. Patent celiac artery and SMA without significant stenosis . Patent IRIS. No AAA. Significant plaque near distal common iliac artery with complete occlusion of t he proximal left external iliac artery. Reconstitution is then identified. Length of occlusion roughl y 6.0 cm. Focal severe plaque causing significant stenosis just before the bifurcation in the distal left common iliac artery. Left external iliac artery shows no significant stenosis. Moderate mixed plaque in the left common femoral artery without significant stenosis. Patent right co mmon femoral artery. Mild plaque along the proximal right SFA without significant stenosis. No signif icant plaque or stenosis in the right popliteal artery satisfactory bifurcation trifurcation with thr ee-vessel flow in the mid leg satisfactory two-vessel flow in the distal leg. Past this point evaluat ion is suboptimal due to poor bolus. Patent left SFA and significant plaque or stenosis. Patent left popliteal artery. Satisfactory bifurc ation and trifurcation. Overall diminished three-vessel and two-vessel flow past the knee without sig nificant plaque versus opposite right side. LUNG BASES: Punctate 2 to 3 mm posterior right mid lung nodule axial image 17 series 201. Coronary a rtery calcification and/or stent in the RCA distribution redemonstrated. LIVER/GB: Liver is diffusely low dense consistent with fatty infiltrative hepatocellular disease. PANCREAS: No significant abnormality is seen. SPLEEN: No significant abnormality is seen. ADRENALS: No significant abnormality is seen. KIDNEYS: No nephrolithiasis. Mildly distended bladder. BOWEL: No significant abnormality is seen. PROSTATE/SEMINAL VESICLES: No gross abnormality seen. LYMPH NODES: No greater than 1cm abdominal or pelvic lymph nodes are appreciated. OSSEOUS STRUCTURES: Multilevel spurring and disc space narrowing throughout the lumbar spine with sli ght scoliotic curvature. Lower extremities: Mild subcutaneous edema distally OTHER: No significant additional abnormality is seen. IMPRESSION: There is roughly 6.0 cm complete occlusion near the left common iliac bifurcation extendi ng into the external iliac artery. There is significant stenosis greater than 50% at the right common iliac artery bifurcation. 6.0 cm
[2024-02-19] MEDS ORDERED: HEPARIN SODIUM 1,000 UN/ML (10ML VL) IV PRN (06:03)
[2024-02-19] MEDS: HYDROmorphone 0.5 MG/0.5 ML SYRINGE IVP STA (06:16)
[2024-02-19] MEDS: HEPARIN SODIUM 1,000 UN/ML (10ML VL) IV ONE (06:17)
[2024-02-19] MEDS: HEPARIN SOD,PORK IN 0.45% NACL 25,000 UNIT in 0.45% NACL 1 250ML.BAG IV SCH (06:19)
[2024-02-19 07:18] VITALS: BP 148/91; PULSE 65
== END 2024-02-19 07:21 | disposition other institution (70) ==
LOC: EC 01:30
DX: I74.5 Embolism and thrombosis of iliac artery (principal); E11.9 Type 2 diabetes mellitus without complications; E78.5 Hyperlipidemia, unspecified; F17.210 Nicotine dependence, cigarettes, uncomplicated; Z79.84 Long term (current) use of oral hypoglycemic drugs; Z88.0 Allergy status to penicillin; Z86.73 Personal history of transient ischemic attack (TIA), and cerebral infarction without residual deficits
CPT/HCPCS: 36415; 80053; 83605; 85025; 75635; 99285; 96365; 96375; J1644 ×2; J1170; Q9967

== ENCOUNTER 2024-07-13 14:12 | Observation (INO) | payer BC ==
--- NOTE | 2024-07-13 14:57 | ED ---
General Adult HPI - General Chief complaint: Chest Pain Stated complaint: Chest Pain,R Leg Numbness Time Seen by Provider: 07/13/24 14:15 Source: patient, RN notes reviewed, old records reviewed Mode of arrival: ambulatory Limitations: no limitations - History of Present Illness Initial comments: This is a 59-year-old male who has a past medical history significant for CVA as well as an FL. Patient also has a history of diabetes hypertension high cho lesterol and is a smoker currently. Patient states while he was at work today he started having severe pain from his hip all the way down to his foot he states it lasted about an hour and it was quite intense. Patient states the pain went away and then it seemed to give him pain in his abdomen. After a while the pain went away and he started having chest heaviness shortness of breath and radiation of the pain to his neck. Patient states that all continues currently. Patient [place] any fever chills or cough or patient is any nausea or vomiting. Patient is no longer any abdominal pain or leg pain - Related Data Home Medications Medication Instructions Recorded Confirmed Aspirin EC [Ecotrin Low Dose] 81 mg PO DAILY 10/19/23 07/13/24 Levothyroxine Sodium [Synthroid] 25 mcg PO DAILY 10/19/23 07/13/24 Dulaglutide [Trulicity] 1 dose SQ DIRECTED 07/13/24 07/13/24 Famotidine [Pepcid] 20 mg PO HS 07/13/24 07/13/24 Insulin Detemir [Levemir Flexpen] 1 dose SQ DIRECTED 07/13/24 07/13/24 Insulin Lispro [humaLOG Kwikpen] See Protocol SQ DIRECTED 07/13/24 07/13/24 Metformin (Unknown) 1,000 mg PO DIRECTED 07/13/24 07/13/24 Rivaroxaban [Xarelto] 2.5 mg PO BID 07/13/24 07/13/24 amLODIPine [Norvasc] 5 mg PO DAILY 07/13/24 07/13/24 lisinopriL [Prinivil] 20 mg PO DAILY 07/13/24 07/13/24 Previous Rx's Medication Instructions Recorded Atorvastatin [Lipitor] 40 mg PO HS #30 tab 10/21/23 Nitroglycerin Sl Tabs [Nitrostat] 0.4 mg SUBLINGUAL Q5M PRN #20 tab 10/21/23 Allergies Allergy/AdvReac Type Severity Reaction Status Date / Time Penicillins AdvReac Confusion Verified 07/13/24 16:03 Review of Systems ROS Statement: Those systems with pertinent positive or pertinent negative responses have been documented in the HPI. ROS Other: All systems not noted in ROS Statement are negative. Past Medical History Past Medical History: CVA/TIA, Diabetes Mellitus, Hyperlipidemia, Hypertension, Myocardial Infarction ([place]) Additional Past Medical History / Comment(s): back pain, stent History of Any Multi-Drug Resistant Organisms: None Reported Past Surgical History: Heart Catheterization With Stent Additional Past Surgical History / Comment(s): oral Past Anesthesia/Blood Transfusion Reactions: No Reported Reaction Date of Last Stent Placement:: 03/2021 Past Psychological History: No Psychological Hx Reported, Depression, PTSD Smoking Status: Current some day smoker, Vaper Past Alcohol Use History: Heavy Past Drug Use History: Marijuana General Exam - General Exam Comments Initial Comments: GENERAL: Patient is well-developed and well-nourished. Patient is nontoxic and well- hydrated and is in no acute distress. ENT: Neck is soft and supple. No significant lymphadenopathy is noted. Oropharynx is clear. Moist mucous membranes. Neck has full range of motion without eliciting any pain. EYES: The sclera were anicteric and conjunctiva were pink and moist. Extraocular movements were intact and pupils were equal round and reactive to light. Eyelids were unremarkable. PULMONARY: Unlabored respirations. Good breath sounds bilaterally. No audible rales rhonchi or wheezing was noted. CARDIOVASCULAR: There is a regular rate and rhythm without any murmurs gallops or rubs. ABDOMEN: Soft and nontender with normal bowel sounds. SKIN: Skin is clear with no lesions or rashes and otherwise unremarkable. NEUROLOGIC: Patient is alert and oriented x3. Cranial nerves II through XII are grossly intact. Motor and sensory are also intact. Normal speech, volume and content. Symmetrical smile. MUSCULOSKELETAL: Normal extremities with adequate strength and full range of motion. No lower extremity swelling or edema. No calf tenderness. Patient legs have good cap refill and are warm LYMPHATICS: No significant lymphadenopathy is noted PSYCHIATRIC: Normal psychiatric evaluation. Limitations: no limitations Course Vital Signs 07/13/24 07/13/24 07/13/24 14:14 14:32 16:31 Temperature 98.5 F 99.1 F 98.2 F Pulse Rate 108 H 92 81 Respiratory 20 18 17 Rate Blood Pressure 129/81 113/79 122/89 O2 Sat by Pulse 97 96 96 Oximetry Medical Decision Making - Medical Decision Making EKG is interpreted by myself but EKG shows a sinus rhythm at 99 bpm parables 179 QRS is 81 QT interval 328 QTc is 385. Patient's EKG shows no ST segment ovation or depression. Was pt. sent in by a medical professional or institution (, [facility], HOT CAR OPERATOR, urgent care, hospital, or halfway...) When possible be specific @ -No Did you speak to anyone other than the patient for history (EMS, parent, family, police, friend...)? What history was obtained from this source @ -No Did you review nursing and triage notes (agree or disagree)? Why? @ -I reviewed and agree with nursing and triage notes Were old charts reviewed (outside hosp., previous admission, EMS record, old EKG, old radiological studies, urgent care reports/EKG's, halfway records)? Report findings @ -No old charts were reviewed Differential Diagnosis? @ -Differential chest pain EKG interpreted by me (3pts min.). @ -As above X-rays interpreted by me (1pt min.). @ -None done CT interpreted by me (1pt min.). @ -CT of the chest abdomen pelvis angiogram showed no acute abnormalities. U/S interpreted by me (1pt. min.). @ -None done What testing was considered but not performed or refused? (CT, X-rays, U/S, labs)? Why? @ -None What meds were considered but not given or refused? Why? @ -None Did you discuss the management of the patient with other professionals (professionals i.e. [facility] Prather, HOT CAR OPERATOR, lab, RT, psych nurse, clinical social work therapist, musical instrument supervisor, teacher, air defense control officer, high risk case manager)? Give summary @ -I spoke with Dr. Avalos and he agreed admit the patient Was smoking cessation discussed for >3mins.? @ -No Was critical care preformed (if so, how long)? @ -No Were there social determinants of health that impacted care today? How? (Homelessness, low income, unemployed, alcoholism, drug addiction, transpor tation, low edu. Level, literacy, decrease access to med. care, [facility], rehab)? @ -No Was there de-escalation of care discussed even if they declined (Discuss DNR or withdrawal of care, Hospice)? DNR status @ -No What co-morbidities impacted this encounter? (DM, HTN, Smoking, COPD, CAD, Cancer, CVA, ARF, Chemo, Hep., AIDS, mental health diagnosis, sleep apnea, morbid obesity)? @ -None Was patient admitted / discharged? Hospital course, mention meds given and route, prescriptions, significant lab abnormalities, going to OR and other pertinent info. @ -Patient CT angiogram was without acute abnormalities. Patient chest pain was much better in the emergency department. He will be admitted for chest pain considering his risk factors and significance of the pain he was having earlier Undiagnosed new problem with uncertain prognosis? @ -No Drug Therapy requiring intensive monitoring for toxicity (Heparin, Nitro, Insulin, Cardizem)? @ -No Were any procedures done? @ -No Diagnosis/symptom? @ -Chest pain Acute, or Chronic, or Acute on Chronic? @ -Acute Uncomplicated (without systemic symptoms) or Complicated (systemic symptoms)? @ -Comp Side effects of treatment? @ -No Exacerbation, Progression, or Severe Exacerbation? @ -No Poses a threat to life or bodily function? How? (Chest pain, [place], [place], pneumonia, PE, COPD, DKA, ARF, appy, cholecystitis, CVA, Diverticulitis, Homicidal, Suicidal, threat to staff... and all critical care pts) @ -Yes this could lead to an FL and endorgan dysfunction - Lab Data Result diagrams: 07/13/24 14:41 07/13/24 14:41 Lab Results 07/13/24 07/13/24 07/13/24 Range/Units 14:41 14:41 14:41 WBC 13.4 H (3.8-10.6) k/uL RBC 5.41 (4.30-5.90) m/uL Hgb 16.9 (13.0-17.5) gm/dL Hct 50.2 (39.0-53.0) % MCV 92.6 (80.0-100.0) fL MCH 31.2 (25.0-35.0) pg MCHC 33.7 (31.0-37.0) g/dL RDW 13.1 (11.5-15.5) % Plt Count 413 (150-450) k/uL MPV 7.4 Neutrophils % 69 % Lymphocytes % 22 % Monocytes % 6 % Eosinophils % 1 % Basophils % 0 % Neutrophils # 9.3 H (1.3-7.7) k/uL Lymphocytes # 2.9 (1.0-4.8) k/uL Monocytes # 0.8 (0-1.0) k/uL Eosinophils # 0.2 (0-0.7) k/uL Basophils # 0.1 (0-0.2) k/uL PT 11.0 (10.0-12.5) sec INR 1.0 (<1.2) APTT 24.8 (22.0-30.0) sec Sodium 139 (137-145) mmol/L Potassium 4.3 (3.5-5.1) mmol/L Chloride 106 (98-107) mmol/L Carbon Dioxide 18 L (22-30) mmol/L Anion Gap 15 mmol/L BUN 21 H (9-20) mg/dL Creatinine 1.44 H (0.66-1.25) mg/dL Est GFR (CKD-EPI)AfAm 61 (>60 ml/min/1.73 sqM) Est GFR (CKD-EPI)NonAf 53 (>60 ml/min/1.73 sqM) Glucose 263 H (74-99) mg/dL Calcium 10.5 H (8.4-10.2) mg/dL Magnesium 1.4 L (1.6-2.3) mg/dL Total Bilirubin 0.9 (0.2-1.3) mg/dL AST 26 (17-59) U/L ALT 32 (4-49) U/L Alkaline Phosphatase 83 (38-126) U/L Troponin I (0.000-0.034) ng/mL Total Protein 7.4 (6.3-8.2) g/dL Albumin 4.8 (3.5-5.0) g/dL 07/13/24 Range/Units 14:41 WBC (3.8-10.6) k/uL RBC (4.30-5.90) m/uL Hgb (13.0-17.5) gm/dL Hct (39.0-53.0) % MCV (80.0-100.0) fL MCH (25.0-35.0) pg MCHC (31.0-37.0) g/dL RDW (11.5-15.5) % Plt Count (150-450) k/uL MPV Neutrophils % % Lymphocytes % % Monocytes % % Eosinophils % % Basophils % % Neutrophils # (1.3-7.7) k/uL Lymphocytes # (1.0-4.8) k/uL Monocytes # (0-1.0) k/uL Eosinophils # (0-0.7) k/uL Basophils # (0-0.2) k/uL PT (10.0-12.5) sec INR (<1.2) APTT (22.0-30.0) sec Sodium (137-145) mmol/L Potassium (3.5-5.1) mmol/L Chloride (98-107) mmol/L Carbon Dioxide (22-30) mmol/L Anion Gap mmol/L BUN (9-20) mg/dL Creatinine (0.66-1.25) mg/dL Est GFR (CKD-EPI)AfAm (>60 ml/min/1.73 sqM) Est GFR (CKD-EPI)NonAf (>60 ml/min/1.73 sqM) Glucose (74-99) mg/dL Calcium (8.4-10.2) mg/dL Magnesium (1.6-2.3) mg/dL Total Bilirubin (0.2-1.3) mg/dL AST (17-59) U/L ALT (4-49) U/L Alkaline Phosphatase (38-126) U/L Troponin I <0.012 (0.000-0.034) ng/mL Total Protein (6.3-8.2) g/dL Albumin (3.5-5.0) g/dL Disposition Clinical Impression: Chest pain Disposition: ADMITTED IP TO THIS HOSP Referrals: Perla Mota MD [Primary Care Provider] - 1-2 days Time of Disposition: 18:38
[2024-07-13 15:07] LABS: Basophils # (A) 0.1 k/uL (0-0.2); Basophils % (A) 0 %; Eosinophils # (A) 0.2 k/uL (0-0.7); Eosinophils % (A) 1 %; HCT 50.2 % (39.0-53.0); HGB 16.9 gm/dL (13.0-17.5); Lymphocytes # (A) 2.9 k/uL (1.0-4.8); Lymphocytes % (A) 22 %; MCH 31.2 pg (25.0-35.0); MCHC 33.7 g/dL (31.0-37.0); MCV 92.6 fL (80.0-100.0); Mean Platelet Volume 7.4; Monocytes # (A) 0.8 k/uL (0-1.0); Monocytes % (A) 6 %; Neutrophils # (A) 9.3 k/uL (1.3-7.7); Neutrophils % (A) 69 %; Platelet Count 413 k/uL (150-450); RBC 5.41 m/uL (4.30-5.90); RDW 13.1 % (11.5-15.5); WBC 13.4 k/uL (3.8-10.6)
[2024-07-13 15:19] LABS: ALT 32 U/L (4-49); AST 26 U/L (17-59); African American GFR (CKD) 61 (>60 ml/min/1.73 sqM); Albumin 4.8 g/dL (3.5-5.0); Alkaline Phosphatase 83 U/L (38-126); Anion Gap 15 mmol/L; Blood Urea Nitrogen 21 mg/dL (9-20); Calcium 10.5 mg/dL (8.4-10.2); Carbon Dioxide 18 mmol/L (22-30); Chloride 106 mmol/L (98-107); Glucose 263 mg/dL (74-99); Magnesium 1.4 mg/dL (1.6-2.3); Non-African American GFR(CKD) 53 (>60 ml/min/1.73 sqM); Potassium 4.3 mmol/L (3.5-5.1); Sodium 139 mmol/L (137-145); Total Bilirubin 0.9 mg/dL (0.2-1.3); Total Protein 7.4 g/dL (6.3-8.2)
[2024-07-13 15:28] LABS: Partial Thromboplastin Time 24.8 sec (22.0-30.0)
[2024-07-13] MEDS: SODIUM CHLORIDE 0.9% 500 ML 500 ML IV ONE (16:29)
--- NOTE | 2024-07-13 16:45 | CT ---
EXAMINATION TYPE: CT angio tho/abd W Run Off DATE OF EXAM: 07/13/2024 COMPARISON: 02/19/2024 HISTORY: chest and abdominal pain, prior bilateral leg embolism CT DLP: 2481.7 mGycm Automated exposure control for dose reduction was used. Contrast: None Technique: Axial images 5 mm thick sections. Reconstructed images in the coronal and sagittal plane. Postcontrast imaging is performed. FINDINGS: There is a three-vessel arch. Heart size is normal. Some coronary artery calcification is present. De scending thoracic aorta at the level of the renal artery measures 3.1 cm. The pulmonary location dani ures 2.5 cm. Lung monge appear clear. Moderate fatty patient is to the liver. There is some patchy contrast early phase to the spleen. Calc ified granulomata within the spleen. Pancreas and adrenal glands gallbladder and kidneys appear unrem arkable vascular calcifications within the aorta. Vena cava is normal. Loops of bowel within the abdomen and pelvis appear unremarkable. Diverticular c hanges are within the sigmoid colon. Aorta: Ascending aorta aortic arch and descending thoracic aorta are unremarkable. No dissection or a neurysmal dilatation is evident. Celiac axis and superior mesenteric artery and renal artery origins appear unremarkable. No dissection or aneurysmal dilatation of the abdominal aorta. Bifurcation is un remarkable. Common iliac internal and external iliac arteries are patent. Some mild calcification is present. Common femoral arteries are patent. Lower extremity runoff: The superficial femoral arteries and profunda femoris branches appear normal. No focal stenosis is evident. Minimal calcification is in the distal right superficial femoral arter y. Popliteal arteries appear unremarkable. Mild calcifications within the mid left popliteal artery. Left popliteal artery and trifurcation vessels appear truncated. Right trifurcation vessels are somew hat small. The peroneal artery on the left is obscured proximally. Distal left anterior and posterior tibial arteries are not identified beyond the distal third of the left lower extremity. Right compliance tester ior tibial artery is patent to the ankle. Right anterior tibial artery is lost in the distal right lo wer extremity. Findings appear to be due to stenosis as opposed to abrupt cut off from a filling defe ct. IMPRESSION: 1. POOR VISUALIZATION OF TRIFURCATION VESSELS. THE PROXIMAL LEFT PERONEAL ARTERY, AND DISTAL LEFT POS TERIOR TIBIAL AND ANTERIOR TIBIAL ARTERIES ARE NOT VISUALIZED WITHIN THE PROXIMAL AND DISTAL CALF REG IONS ON THE LEFT RESPECTIVELY. THE RIGHT POSTERIOR TIBIAL ARTERY IS PATENT TO THE ANKLE. RIGHT ANTERI OR TIBIAL ARTERY EXTENDS TO THE DISTAL CALF.
[2024-07-13] MEDS: MAGNESIUM SULFATE-D5W PMX 1 GM in DEXTROSE/WATER 1 100ML.BAG IVPB ONE (17:07)
[2024-07-13] MEDS ORDERED: NITROGLYCERIN SL TABS 0.4 MG TAB SUBLINGUAL PRN (18:38)
[2024-07-13 22:28] LABS: Glucose,Whole Blood 136 mg/dL (70-110)
[2024-07-13] MEDS: NITROGLYCERIN OINT 1 INCH/GM PACKET TOPICAL SCH (23:34)
[2024-07-14 05:36] LABS: Glucose,Whole Blood 164 mg/dL (70-110)
[2024-07-14] MEDS ORDERED: NON FORMULARY DRUG (Aspirin Ec 81 MG Tablet) PO SCH (09:00)
[2024-07-14 09:08] LABS: Chol/HDL Ratio 2.44 Ratio; LDL Cholesterol,Calculated 43.1 mg/dL (0.0-131.0); VLDL Calculation 19.36 mg/dL (5.00-40.00)
[2024-07-14] MEDS: lisinopriL 20 MG TAB PO SCH (09:47)
[2024-07-14] MEDS: ASPIRIN 325 MG TAB PO SCH (09:47)
[2024-07-14] MEDS: RIVAROXABAN 2.5 MG TABLET PO SCH (09:47)
[2024-07-14] MEDS: amLODIPine 5 MG TAB PO SCH (09:47)
[2024-07-14] MEDS: LEVOTHYROXINE 25 MCG TAB PO SCH (09:50)
--- NOTE | 2024-07-14 09:54 | P.CRDCN ---
History of Present Illness Consult date: 07/14/24 Consult reason: chest pain History of present illness: This is a 59-year-old male patient previously seen by Luz Euceda and has not followed up since April 2022. He has a past medical history of ischemic cardiomyopathy, previous PA status post stent placement to the LAD, left ventricle thrombus, CVA, diabetes mellitus type 2, hypertension, hyperlipidemia, history of DVT status post angioplasty of the left leg at [facility]. We have been asked to evaluate the patient for chest pain. Patient states he came into the hospital due to right leg pain. The pain started in his right hip and it was going all the way down his leg and he could not walk. He states however this morning he has been able to ambulate back and forth to the bathroom from his bed and the pain has been relieved. Patient was hospitalized in October 2023 at which time he was seen by cardiology for chest pain. He underwent Cardiolite stress test which was negative and echocardiogram at that time revealed EF of 50 to 55%. Patient was cleared with plan for follow-up in the office which she did not do. Blood pressure 108/75, heart rate 81, pulse ox 98% on room air. EKG: Sinus rhythm with no acute ST-T wave changes. Chest x-ray: CT angiogram thoracic abdominal with runoff: Poor visualization of trifurcation vessels. Proximal left peroneal artery and distal left posterior tibial and anterior tibial arteries are not visualized within the proximal and distal calf regions of the left respectively. The right posterior tibial artery is patent to the ankle. Right anterior tibial artery extends to the distal calf. Laboratory studies: WBC 13.4, hemoglobin 16.9. Sodium 139, potassium 4.3, BUN 21 creatinine 1.44. Magnesium 1.4 and has been replaced in the ER. Troponin negative x 3. Triglycerides 96, cholesterol 106, LDL 43, HDL 43. Home cardiac medications: Amlodipine 5 mg daily, aspirin 81 mg daily, atorvastatin 40 mg at bedtime, lisinopril 20 mg daily, Nitrostat as needed, Xarelto 2.5 mg twice daily. Review Of Systems: At the time of my exam: CONSTITUTIONAL: Denies fever or chills. HEENT: Denies blurred vision, vision changes, or eye pain. Denies hemoptysis CARDIOVASCULAR: Denies chest pain. Denies orthopnea. Denies PND. Denies palpi tations RESPIRATORY: Denies shortness of breath. GASTROINTESTINAL: Denies abdominal pain. Denies nausea or vomiting. HEMATOLOGIC: Denies bleeding disorders. GENITOURINARY: Denies any blood in urine. SKIN: Denies puritis. Denies rash. Physical examination: Gen: This is a 59-year-old male in no acute distress VS: reviewed HEENT: Head is atraumatic, normocephalic. Pupils equal, round. Sclerae is anicteric. NECK: Supple. No JVD. LUNGS: Clear to auscultation. No wheezes or rhonchi. No intercostal retractions. HEART: Regular rate and rhythm. No murmur. ABDOMEN: Soft No tenderness. EXTREMITIES: No pedal edema. No calf tenderness. NEUROLOGICAL: Patient is awake, alert and oriented x3. Assessment: Right leg pain Acute coronary syndrome ruled out with negative troponins History of coronary artery disease with previous stenting of the LAD Ischemic cardiomyopathy, recovered CVA history Diabetes mellitus type 2 Hypertension Hyperlipidemia Plan: Resume patient's home cardiac medications Patient is cleared for discharge and may follow-up in the office with Dr. Calvo in 1 week Thank you kindly for this consultation. Nurse practitioner note has been reviewed, I agree with documented findings and plan of care. Patient was seen and examined. Past Medical History Past Medical History: CVA/TIA, Diabetes Mellitus, Deep Vein Thrombosis (DVT), Hyperlipidemia, Hypertension, Myocardial Infarction ([place]), Vascular Disorder Additional Past Medical History / Comment(s): back pain, stent, cva 2020 no residual, left leg dvt, neuropathy Last Myocardial Infarction Date:: 2020 History of Any Multi-Drug Resistant Organisms: None Reported Past Surgical History: Heart Catheterization With Stent Additional Past Surgical History / Comment(s): angioplasty to left leg due to dvt 02/2025 tx to [facility] Past Anesthesia/Blood Transfusion Reactions: No Reported Reaction Date of Last Stent Placement:: 03/2021 Past Psychological History: Depression, PTSD Smoking Status: Current every day smoker, Vaper Past Alcohol Use History: Heavy Additional Past Alcohol Use History / Comment(s): no alcohol use since 06/12/2024. past use was 6-7 or more shots of vodka daily. recent dui 05/2024 Past Drug Use History: Marijuana Additional Drug Use History / Comment(s): past use meth for 10 years stopped in 1998. past cocaine use 2020. currently uses THC daily. - Past Family History Father Family Medical History: Diabetes Mellitus, Hyperlipidemia, Myocardial Infarction ([place]) Mother Family Medical History: No Reported History Medications and Allergies Home Medications Medication Instructions Recorded Confirmed Type Aspirin EC [Ecotrin Low Dose] 81 mg PO DAILY 10/19/23 07/13/24 History Levothyroxine Sodium [Synthroid] 25 mcg PO DAILY 10/19/23 07/13/24 History Atorvastatin [Lipitor] 40 mg PO HS #30 tab 10/21/23 07/13/24 Rx Nitroglycerin Sl Tabs [Nitrostat] 0.4 mg SUBLINGUAL Q5M PRN #20 tab 10/21/23 07/13/24 Rx Dulaglutide [Trulicity] 1.5 mg SQ TU 07/13/24 07/14/24 History Famotidine [Pepcid] 20 mg PO HS 07/13/24 07/13/24 History Insulin Detemir [Levemir Flexpen] 20 units SQ BID 07/13/24 07/14/24 History Insulin Lispro [humaLOG Kwikpen] See Protocol SQ AC-TID 07/13/24 07/14/24 History Rivaroxaban [Xarelto] 2.5 mg PO BID 07/13/24 07/13/24 History amLODIPine [Norvasc] 5 mg PO DAILY 07/13/24 07/13/24 History lisinopriL [Prinivil] 20 mg PO DAILY 07/13/24 07/13/24 History metFORMIN HCL [Glucophage] 1,000 mg PO HS 07/14/24 07/14/24 History Allergies Allergy/AdvReac Type Severity Reaction Status Date / Time Penicillins AdvReac Confusion Verified 07/13/24 16:03 Physical Exam Vitals: Vital Signs Temp Pulse Pulse Resp BP BP Pulse Ox 07/14/24 07:49 97 07/14/24 07:18 98.1 F 81 17 108/75 98 07/14/24 03:47 97.9 F 77 16 93/64 98 07/13/24 22:10 98.7 F 75 17 112/77 97 07/13/24 21:01 98.7 F 81 18 120/78 96 07/13/24 20:00 78 18 110/78 97 07/13/24 19:30 78 18 101/76 98 07/13/24 19:00 82 21 94/57 100 07/13/24 18:30 85 22 103/65 97 07/13/24 18:00 86 18 100/77 97 07/13/24 17:30 87 24 116/77 95 07/13/24 16:31 98.2 F 81 17 122/89 96 07/13/24 14:32 99.1 F 92 18 113/79 96 07/13/24 14:14 98.5 F 108 H 20 129/81 97 Intake and Output 07/13/24 07/14/24 07/14/24 22:59 06:59 14:59 Other: # Voids 1 2 Weight 90.718 kg Results 07/13/24 14:41 07/13/24 14:41 Cardiac Enzymes 07/13/24 07/13/24 07/13/24 Range/Units 14:41 14:41 20:12 AST 26 (17-59) U/L Troponin I <0.012 <0.012 (0.000-0.034) ng/mL 07/13/24 Range/Units 23:39 AST (17-59) U/L Troponin I <0.012 (0.000-0.034) ng/mL Coagulation 07/13/24 Range/Units 14:41 PT 11.0 (10.0-12.5) sec APTT 24.8 (22.0-30.0) sec CBC 07/13/24 Range/Units 14:41 WBC 13.4 H (3.8-10.6) k/uL RBC 5.41 (4.30-5.90) m/uL Hgb 16.9 (13.0-17.5) gm/dL Hct 50.2 (39.0-53.0) % Plt Count 413 (150-450) k/uL Comprehensive Metabolic Panel 07/13/24 Range/Units 14:41 Sodium 139 (137-145) mmol/L Potassium 4.3 (3.5-5.1) mmol/L Chloride 106 (98-107) mmol/L Carbon Dioxide 18 L (22-30) mmol/L BUN 21 H (9-20) mg/dL Creatinine 1.44 H (0.66-1.25) mg/dL Glucose 263 H (74-99) mg/dL Calcium 10.5 H (8.4-10.2) mg/dL AST 26 (17-59) U/L ALT 32 (4-49) U/L Alkaline Phosphatase 83 (38-126) U/L Total Protein 7.4 (6.3-8.2) g/dL Albumin 4.8 (3.5-5.0) g/dL Current Medications Generic Name Dose Route Start Last Admin Trade Name Freq PRN Reason Stop Dose Admin Aspirin 325 mg 07/14/24 09:00 Aspirin 325 Mg Tab PO DAILY FEMI Nitroglycerin 0.4 mg 07/13/24 18:38 Nitroglycerin Sl Tabs 0.4 Mg Tab SUBLINGUAL Q5M PRN Chest Pain Nitroglycerin 1 inch 07/14/24 00:00 07/14/24 05:26 Nitroglycerin Oint 1 Inch/Gm Packet TOPICAL Not Given Q6HR FEMI Intake and Output 07/13/24 07/14/24 07/14/24 22:59 06:59 14:59 Other: # Voids 1 2 Weight 90.718 kg 07/13/24 14:41 07/13/24 14:41
[2024-07-14] MEDS: INSULIN DETEMIR (LEVEMIR) 100 UNIT/ML SYR SQ SCH (10:30)
[2024-07-14] MEDS: RIVAROXABAN 20 MG TAB PO STA (11:13)
[2024-07-14] MEDS ORDERED: Magnesium Replacement Protocol 1 EACH MISC MISCELLANE PRN (11:38)
--- NOTE | 2024-07-14 11:59 | P.HPIM ---
History of Present Illness H&P Date: 07/14/24 Patient is a 59-year-old male with history of DVT of left leg (angioplasty in February 2024), hypertension, hyperlipidemia, diabetes, chronic smoker, neuropathy who came in for chest pain. Patient reports that 1 day prior, severe right leg pain began at noon that was radiating to the hip and to the foot that lasted for 1 hour which was worsened with walking and relieved with rest. He also reports that pain also radiated abdomen head and neck and to the back. He has an associated shortness of breath that was nonpleuritic. He denies nausea and vomiting, chills, fever, new onset cough, vision changes, recent travel, calf pain of affected limb, bruising, or bleeding. CTA aorta with runoff shows negative for any obstruction or any acute process. EKG showed normal sinus rhythm with a rate of 99 good R wave progression no ST-T changes QTc 385. On admission WBC was 13.4 BUN 21 creatinine 1.44 glucose 263 calcium 10.5 magnesium 1.4. Vitals on admission were unremarkable except for tachycardia 108. ED documentation reviewed. Review of systems: Pertinent positives and negatives as discussed in HPI, a complete review of systems was performed and all other systems are negative. Social history: Tobacco: Heavy daily smoker, vapes Alcohol: History of alcohol use, 6-7 vodka daily Recreational drugs: Current use of marijuana Travel: No recent travel Physical examination: Vital signs reviewed General: non toxic, no distress, appears at stated age, normal weight Derm: no unusual rashes/lesions, warm Head: atraumatic, normocephalic, symmetric Eyes: EOMI, no lid lag, anicteric sclera, pupils equal round reactive to light ENT: Nose and ears atraumatic Neck: No cervical lymphadenopathy, trachea midline, supple Mouth: no lip lesion, mucus membranes moist Cardiovascular: S1S2 reg, no murmur Lungs: CTA bilateral, no rhonchi, no rales, no accessory muscle use Abdominal: soft, nontender to palpation, no guarding Ext: muscle strength 5 out of 5 in all 4 extremities grossly, no gross muscle atrophy, no contractures, positive dorsalis pedis pulse bilateral, no edema Neuro: CN II-XI grossly intact, no gross focal neuro deficits Psych: Alert, oriented, appropriate affect and mood Assessment/Plan: #. Chest pain rule out ACS, PE, abdominal aortic aneurysm, thromboembolism, neuropathy Patient has leg pain that radiated and subsequent chest pain and abdominal pain. Patient has history of DVT and [place]. CTA with runoff scan shows no obstruction present. EKG is unremarkable. Troponins negative. Lipid profile unremarkable. -Continue with cardiac monitoring -Continue with Nitropaste every 6 hours -Continue with Nitrostat sublingual 0.4 mg every 5 hours as needed for chest pain -Increased dose of home rivaroxaban to 20 mg p.o. -Consult cardiology #. Hypomagnesemia On admission magnesium is 1.4. Patient is stable and asymptomatic at this time. -Magnesium replacement per protocol #. CHINTAN likely due to dehydration BUN/creatinine elevated. Patient stable and asymptomatic. -Will monitor for now #. Diabetes with hyperglycemia Patient has history of diabetes. On admission glucose was 263. -Insulin sliding scale medium dose -Levemir 20 units -Glucose Accu-checks ACHS -Will adjust oral antihyperglycemic medication prior to discharge GI prophylaxis: Famotidine 20 PO OD DVT prophylaxis: Rivaroxaban 20 mg p.o. OD Chronic conditions: Hypertension, hyperlipidemia, diabetes, CAD, depression, PTSD The patient is admitted with an anticipated less than than 2 midnight stay for evaluation of observation of chest pain CODE STATUS: No code Discussed with: Patient Anticipated discharge place: Home Past Medical History Past Medical History: CVA/TIA, Diabetes Mellitus, Deep Vein Thrombosis (DVT), Hyperlipidemia, Hypertension, Myocardial Infarction ([place]), Vascular Disorder Additional Past Medical History / Comment(s): back pain, stent, cva 2020 no residual, left leg dvt, neuropathy Last Myocardial Infarction Date:: 2020 History of Any Multi-Drug Resistant Organisms: None Reported Past Surgical History: Heart Catheterization With Stent Additional Past Surgical History / Comment(s): angioplasty to left leg due to dvt 02/2025 tx to [facility] Past Anesthesia/Blood Transfusion Reactions: No Reported Reaction Date of Last Stent Placement:: 03/2021 Past Psychological History: Depression, PTSD Smoking Status: Current every day smoker, Vaper Past Alcohol Use History: Heavy Additional Past Alcohol Use History / Comment(s): no alcohol use since 06/12/2024. past use was 6-7 or more shots of vodka daily. recent dui 05/2024 Past Drug Use History: Marijuana Additional Drug Use History / Comment(s): past use meth for 10 years stopped in 1998. past cocaine use 2020. currently uses THC daily. - Past Family History Father Family Medical History: Diabetes Mellitus, Hyperlipidemia, Myocardial Infarction ([place]) Mother Family Medical History: No Reported History Medications and Allergies Home Medications Medication Instructions Recorded Confirmed Type Aspirin EC [Ecotrin Low Dose] 81 mg PO DAILY 10/19/23 07/13/24 History Levothyroxine Sodium [Synthroid] 25 mcg PO DAILY 10/19/23 07/13/24 History Atorvastatin [Lipitor] 40 mg PO HS #30 tab 10/21/23 07/13/24 Rx Nitroglycerin Sl Tabs [Nitrostat] 0.4 mg SUBLINGUAL Q5M PRN #20 tab 10/21/23 Rx Dulaglutide [Trulicity] 1.5 mg SQ TU 07/13/24 07/14/24 History Famotidine [Pepcid] 20 mg PO HS 07/13/24 07/13/24 History Insulin Detemir [Levemir Flexpen] 20 units SQ BID 07/13/24 07/14/24 History Insulin Lispro [humaLOG Kwikpen] See Protocol SQ AC-TID 07/13/24 07/14/24 History amLODIPine [Norvasc] 5 mg PO DAILY 07/13/24 07/13/24 History lisinopriL [Prinivil] 20 mg PO DAILY 07/13/24 07/13/24 History Rivaroxaban [Xarelto] 20 mg PO DAILY 30 Days #30 tab 07/14/24 Rx metFORMIN HCL [Glucophage] 1,000 mg PO HS 07/14/24 07/14/24 History Allergies Allergy/AdvReac Type Severity Reaction Status Date / Time Penicillins AdvReac Confusion Verified 07/13/24 16:03 Physical Exam Vitals: Vital Signs Temp Pulse Pulse Resp BP BP Pulse Ox 07/14/24 07:49 97 07/14/24 03:47 97.9 F 77 16 93/64 98 07/13/24 22:10 98.7 F 75 17 112/77 97 07/13/24 21:01 98.7 F 81 18 120/78 96 07/13/24 20:00 78 18 110/78 97 07/13/24 19:30 78 18 101/76 98 07/13/24 19:00 82 21 94/57 100 07/13/24 18:30 85 22 103/65 97 07/13/24 18:00 86 18 100/77 97 07/13/24 17:30 87 24 116/77 95 07/13/24 16:31 98.2 F 81 17 122/89 96 07/13/24 14:32 99.1 F 92 18 113/79 96 07/13/24 14:14 98.5 F 108 H 20 129/81 97 Intake and Output 07/13/24 07/14/24 07/14/24 22:59 06:59 14:59 Other: # Voids 1 2 Weight 90.718 kg Results CBC & Chem 7: 07/13/24 14:41 07/13/24 14:41 Labs: Abnormal Lab Results - Last 24 Hours (Table) 07/13/24 07/13/24 07/13/24 Range/Units 14:41 14:41 22:26 WBC 13.4 H (3.8-10.6) k/uL Neutrophils # 9.3 H (1.3-7.7) k/uL Carbon Dioxide 18 L (22-30) mmol/L BUN 21 H (9-20) mg/dL Creatinine 1.44 H (0.66-1.25) mg/dL Glucose 263 H (74-99) mg/dL POC Glucose (mg/dL) 136 H (70-110) mg/dL Calcium 10.5 H (8.4-10.2) mg/dL Magnesium 1.4 L (1.6-2.3) mg/dL 07/14/24 Range/Units 05:35 WBC (3.8-10.6) k/uL Neutrophils # (1.3-7.7) k/uL Carbon Dioxide (22-30) mmol/L BUN (9-20) mg/dL Creatinine (0.66-1.25) mg/dL Glucose (74-99) mg/dL POC Glucose (mg/dL) 164 H (70-110) mg/dL Calcium (8.4-10.2) mg/dL Magnesium (1.6-2.3) mg/dL Thrombosis Risk Factor Assmnt - Choose All That Apply Any of the Below Risk Factors Present?: Yes Each Factor Represents 1 point: Age 41-60 years, Obesity (BMI >25) Other Risk Factors: Yes Each Risk Factor Represents 3 Points: History of DVT/PE Other congenital or acquired thrombophilia - If yes, enter type in comment: No Thrombosis Risk Factor Assessment Total Risk Factor Score: 5 Thrombosis Risk Factor Assessment Level: High Risk
[2024-07-14 12:20] LABS: Glucose,Whole Blood 204 mg/dL (70-110)
[2024-07-14] MEDS ORDERED: DEXTROSE 50% SYRINGE 50 ML IVP PRN ×2 (12:21)
[2024-07-14] MEDS ORDERED: INSULIN ASPART (NovoLOG) 100 UNIT/ML VIAL SQ SCH (12:30)
[2024-07-14] MEDS: INSULIN ASPART (NovoLOG) 100 UNIT/ML VIAL SQ SCH (12:39)
[2024-07-14] MEDS: SODIUM CHLORIDE 0.9% 1,000 ML IV SCH (14:06)
[2024-07-14] MEDS: MAGNESIUM SULFATE-D5W PMX 1 GM in DEXTROSE/WATER 1 100ML.BAG IVPB SCH (14:07)
[2024-07-14 15:37] VITALS: BP 124/80; PULSE 77; RESP 18; TEMP 98.4
--- NOTE | 2024-07-14 15:41 | P.DS ---
Providers Date of admission: 07/13/24 18:40 Attending physician: Chilango Avalos Consults: 07/13/24 18:38 Consult Physician Urgent Consulting Provider: [facility] Consult Reason/Comments: Chest pain Do you want consulting provider notified?: Yes Primary care physician: Perla Mota [facility] Course: Hospital Course: Patient is a 59-year-old male with history of DVT of left leg (angioplasty in February 2024), hypertension, hyperlipidemia, diabetes, chronic smoker, neuropathy who came in for chest pain. Patient reports that 1 day prior, severe right leg pain began at noon that was radiating to the hip and to the foot that lasted for 1 hour which was worsened with walking and relieved with rest. He also reports that pain also radiated abdomen head and neck and to the back. He has an associated shortness of breath that was nonpleuritic. He denies nausea and vomiting, chills, fever, new onset cough, vision changes, recent travel, calf pain of affected limb, bruising, or bleeding. Patient was admitted for observation of chest pain and cardiology was consulted. Imaging done showed no vascular obstruction, aortic dissection or any ischemic changes. On admission WBC was 13.4 BUN 21 creatinine 1.44 glucose 263 calcium 10.5 magnesium 1.4. Troponins were negative and lipid profile was unremarkable. Magnesium was repleted and home medication was adjusted. Throughout stay patient was stable and asymptomatic. Cardiology has cleared patient for discharge and to follow-up in 1 week. Patient advised to follow-up with PCP after 1 to 2 days and to take home medication as instructed. Final Diagnosis: #. Chest pain due to referred pain from neuropathy #. Hypomagnesemia #. Diabetes with hyperglycemia #. Acute kidney injury due to dehydration Physical examination: Vital signs reviewed General: non toxic, no distress, appears at stated age, normal weight Derm: no unusual rashes/lesions, warm Head: atraumatic, normocephalic, symmetric Eyes: EOMI, no lid lag, anicteric sclera, pupils equal round reactive to light ENT: Nose and ears atraumatic Neck: No cervical lymphadenopathy, trachea midline, supple Mouth: no lip lesion, mucus membranes moist Cardiovascular: S1S2 reg, no murmur, Lungs: CTA bilateral, no rhonchi, no rales, no accessory muscle use Abdominal: soft, nontender to palpation, no guarding Ext: muscle strength 5 out of 5 in all 4 extremities grossly, no gross muscle atrophy, no contractures, positive dorsalis pedis pulse bilateral, no edema Neuro: CN II-XI grossly intact, no gross focal neuro deficits Psych: Alert, oriented, appropriate affect and mood Patient Condition at Discharge: Stable Plan - Discharge Summary Discharge Rx Participant: No New Discharge Prescriptions: New Rivaroxaban [Xarelto] 20 mg PO DAILY 30 Days #30 tab Continue Aspirin EC [Ecotrin Low Dose] 81 mg PO DAILY Atorvastatin [Lipitor] 40 mg PO HS #30 tab amLODIPine [Norvasc] 5 mg PO DAILY Famotidine [Pepcid] 20 mg PO HS Dulaglutide [Trulicity] 1.5 mg SQ TU Insulin Detemir [Levemir Flexpen] 20 units SQ BID metFORMIN HCL [Glucophage] 1,000 mg PO HS Levothyroxine Sodium [Synthroid] 25 mcg PO DAILY Nitroglycerin Sl Tabs [Nitrostat] 0.4 mg SUBLINGUAL Q5M PRN #20 tab PRN Reason: Chest Pain Insulin Lispro [humaLOG Kwikpen] See Protocol SQ AC-TID Discontinued Rivaroxaban [Xarelto] 2.5 mg PO BID No Action lisinopriL [Prinivil] 20 mg PO DAILY Discharge Medication List Aspirin EC [Ecotrin Low Dose] 81 mg PO DAILY 10/19/23 [History] Levothyroxine Sodium [Synthroid] 25 mcg PO DAILY 10/19/23 [History] Atorvastatin [Lipitor] 40 mg PO HS #30 tab 10/21/23 [Rx] Nitroglycerin Sl Tabs [Nitrostat] 0.4 mg SUBLINGUAL Q5M PRN #20 tab 10/21/23 [Rx] Dulaglutide [Trulicity] 1.5 mg SQ TU 07/13/24 [History] Famotidine [Pepcid] 20 mg PO HS 07/13/24 [History] Insulin Detemir [Levemir Flexpen] 20 units SQ BID 07/13/24 [History] Insulin Lispro [humaLOG Kwikpen] See Protocol SQ AC-TID 07/13/24 [History] amLODIPine [Norvasc] 5 mg PO DAILY 07/13/24 [History] lisinopriL [Prinivil] 20 mg PO DAILY 07/13/24 [History] Rivaroxaban [Xarelto] 20 mg PO DAILY 30 Days #30 tab 07/14/24 [Rx] metFORMIN HCL [Glucophage] 1,000 mg PO HS 07/14/24 [History] Follow up Appointment(s)/Referral(s): Rosalio Calvo MD [Medical Doctor] - 1 Week Perla Mota MD [Primary Care Provider] - 1-2 days Discharge Disposition: HOME SELF-CARE
[2024-07-14] MEDS ORDERED: FAMOTIDINE 20 MG TAB PO SCH (21:00)
[2024-07-14] MEDS ORDERED: ATORVASTATIN 40 MG TAB PO SCH (21:00)
== END 2024-07-14 16:43 | disposition home or self-care (01) ==
LOC: EC 14:12 → 6NMEDSUR 18:40
PROVIDERS: ADMIT Hospitalist; ATTEND Hospitalist
DX: R07.89 Other chest pain (principal); E11.40 Type 2 diabetes mellitus with diabetic neuropathy, unspecified; I10 Essential (primary) hypertension; E78.00 Pure hypercholesterolemia, unspecified; M54.2 Cervicalgia; R00.0 Tachycardia, unspecified; E83.42 Hypomagnesemia; N17.9 Acute kidney failure, unspecified; E11.65 Type 2 diabetes mellitus with hyperglycemia; I25.10 Atherosclerotic heart disease of native coronary artery without angina pectoris; E66.9 Obesity, unspecified; Z68.27 Body mass index [BMI] 27.0-27.9, adult; I25.5 Ischemic cardiomyopathy; M79.604 Pain in right leg; Z98.62 Peripheral vascular angioplasty status; E86.0 Dehydration; I25.2 Old myocardial infarction; F17.290 Nicotine dependence, other tobacco product, uncomplicated; Z79.82 Long term (current) use of aspirin; Z79.890 Hormone replacement therapy; Z79.01 Long term (current) use of anticoagulants; Z79.85 Long-term (current) use of injectable non-insulin antidiabetic drugs; Z79.4 Long term (current) use of insulin; Z79.84 Long term (current) use of oral hypoglycemic drugs; Z79.899 Other long term (current) drug therapy; Z88.0 Allergy status to penicillin; Z86.718 Personal history of other venous thrombosis and embolism; Z86.711 Personal history of pulmonary embolism; Z86.73 Personal history of transient ischemic attack (TIA), and cerebral infarction without residual deficits
CPT/HCPCS: 36415; 71275; 75635; 80053; 80061; 83735; 84484; 85025; 85610; 85730; 93005; 94760; 96361; 96365; 96366; 99285

== ENCOUNTER 2024-07-26 16:34 | Emergency (ER) | payer BC ==
[2024-07-26 16:39] VITALS: TEMP 97.5
--- NOTE | 2024-07-26 16:56 | ED ---
General Adult HPI - General Chief complaint: GI Bleed Stated complaint: GI BLEED Time Seen by Provider: 07/26/24 16:41 Source: patient, RN notes reviewed, old records reviewed Mode of arrival: ambulatory Limitations: no limitations - History of Present Illness Initial comments: 59-year-old male presenting for generalized abdominal pain and discomfort. Patient was seen by primary care today and had been noted to have dark stool over the past 24 hours. Patient is on Xarelto and aspirin and states he was started on a new medication for peripheral vascular disease within the past 1 week as well as a new diabetic agent. No fever. No vomiting. Patient only noted dark stool today. He does admit to taking Pepto-Bismol yesterday - Related Data Home Medications Medication Instructions Recorded Confirmed Aspirin EC [Ecotrin Low Dose] 81 mg PO DAILY 10/19/23 07/26/24 Levothyroxine Sodium [Synthroid] 25 mcg PO DAILY 10/19/23 07/26/24 Dulaglutide [Trulicity] 1.5 mg SQ TU 07/13/24 07/26/24 Famotidine [Pepcid] 20 mg PO HS 07/13/24 07/26/24 Insulin Detemir [Levemir Flexpen] 20 units SQ BID 07/13/24 07/26/24 Insulin Lispro [humaLOG Kwikpen] See Protocol SQ AC-TID 07/13/24 07/26/24 amLODIPine [Norvasc] 5 mg PO DAILY 07/13/24 07/26/24 lisinopriL [Prinivil] 20 mg PO DAILY 07/13/24 07/26/24 metFORMIN HCL [Glucophage] 1,000 mg PO BID-W/MEALS 07/14/24 07/26/24 Empagliflozin [Jardiance] 10 mg PO DAILY 07/26/24 07/26/24 Rivaroxaban [Xarelto] 2.5 mg PO BID 07/26/24 07/26/24 cilostazoL [Pletal] 50 mg PO BID 07/26/24 07/26/24 Previous Rx's Medication Instructions Recorded Atorvastatin [Lipitor] 40 mg PO HS #30 tab 10/21/23 Nitroglycerin Sl Tabs [Nitrostat] 0.4 mg SUBLINGUAL Q5M PRN #20 tab 10/21/23 Allergies Allergy/AdvReac Type Severity Reaction Status Date / Time Penicillins AdvReac Confusion Verified 07/26/24 18:15 Review of Systems ROS Statement: Those systems with pertinent positive or pertinent negative responses have been documented in the HPI. ROS Other: All systems not noted in ROS Statement are negative. Past Medical History Past Medical History: CVA/TIA, Diabetes Mellitus, Deep Vein Thrombosis (DVT), Hyperlipidemia, Hypertension, Myocardial Infarction ([place]), Vascular Disorder Additional Past Medical History / Comment(s): back pain, stent, cva 2020 no residual, left leg dvt, neuropathy Last Myocardial Infarction Date:: 2020 History of Any Multi-Drug Resistant Organisms: None Reported Past Surgical History: Heart Catheterization With Stent Additional Past Surgical History / Comment(s): angioplasty to left leg due to dvt 02/2025 tx to [facility] Past Anesthesia/Blood Transfusion Reactions: No Reported Reaction Date of Last Stent Placement:: 03/2021 Past Psychological History: Depression, PTSD Smoking Status: Current every day smoker, Vaper Past Alcohol Use History: Heavy Past Drug Use History: Marijuana - Past Family History Father Family Medical History: Diabetes Mellitus, Hyperlipidemia, Myocardial Infarction ([place]) Mother Family Medical History: No Reported History General Exam Limitations: no limitations General appearance: alert, in no apparent distress Head exam: Present: atraumatic, normocephalic Eye exam: Present: normal appearance, PERRL ENT exam: Present: normal exam Neck exam: Present: normal inspection. Absent: tenderness, meningismus Respiratory exam: Present: normal lung sounds bilaterally. Absent: respiratory distress, wheezes Cardiovascular Exam: Present: normal rhythm, tachycardia GI/Abdominal exam: Present: soft, distended, tenderness Rectal exam: Present: black stool Neurological exam: Present: alert, oriented X3 Skin exam: Present: warm, dry Course Vital Signs 07/26/24 07/26/24 16:36 16:39 Temperature 97.5 F L Pulse Rate 107 H 81 Respiratory 16 20 Rate Blood Pressure 118/84 136/80 O2 Sat by Pulse 96 98 Oximetry Medical Decision Making - Medical Decision Making Was pt. sent in by a medical professional or institution (, PA, GAS UTILITY WORKER, urgent care, hospital, or [facility]...) When possible be specific @ -No Did you speak to anyone other than the patient for history (EMS, parent, family, police, friend...)? What history was obtained from this source @ -No Did you review nursing and triage notes (agree or disagree)? Why? @ -I reviewed and agree with nursing and triage notes Were old charts reviewed (outside hosp., previous admission, EMS record, old EKG, old radiological studies, urgent care reports/EKG's, [facility] records)? Report findings @ -No old charts were reviewed Differential GI Bleed: Esophageal varices, aortoenteric fistula, Deisy-Fuentes, gastritis, peptic ulcer disease, diverticulosis, inflammatory bowel disease, hemorrhoids, fissure, colitis, malignancy, Meckel's diverticulum, this is not meant to be an all- inclusive list. EKG interpreted by me (3pts min.). @ -As above X-rays interpreted by me (1pt min.). @ -None done CT interpreted by me (1pt min.). @ -[CT abdomen pelvis with contrast showing possible colitis, no other acute findings U/S interpreted by me (1pt. min.). @ -None done What testing was considered but not performed or refused? (CT, X-rays, U/S, labs)? Why? @ -None What meds were considered but not given or refused? Why? @ -None Did you discuss the management of the patient with other professionals (professionals i.e. , PA, GAS UTILITY WORKER, lab, RT, psych nurse, group social worker, ocean rescue lieutenant, teacher, chief compliance officer, pillowcase maker)? Give summary @ -No Was smoking cessation discussed for >3mins.? @ -No Was critical care preformed (if so, how long)? @ -No Were there social determinants of health that impacted care today? How? (Homelessness, low income, unemployed, alcoholism, drug addiction, transportation, low edu. Level, literacy, decrease access to med. care, half-way, rehab)? @ -No Was there de-escalation of care discussed even if they declined (Discuss DNR or withdrawal of care, Hospice)? DNR status @ -No What co-morbidities impacted this encounter? (DM, HTN, Smoking, COPD, CAD, Cancer, CVA, ARF, Chemo, Hep., AIDS, mental health diagnosis, sleep apnea, morbid obesity)? @ -Diabetes, peripheral vascular disease Was patient admitted / discharged? Hospital course, mention meds given and route, prescriptions, significant lab abnormalities, going to OR and other pertinent info. @16-year-old male presenting for evaluation of dark stool and generalized abdominal pain. Patient does admit to taking Pepto-Bismol and his stool occult is negative. His hemoglobin is stable. He has a mild leukocytosis. Patient believes this is secondary to new medication he is taking and has informed his doctor that he will discontinue that medication. CT shows the possibility of a mild colitis and calcified gallbladder no acute findings. Patient does feel better on reevaluation. He will monitor symptoms closely and follow-up with his primary care provider. Undiagnosed new problem with uncertain prognosis? @ -No Drug Therapy requiring intensive monitoring for toxicity (Heparin, Nitro, Insulin, Cardizem)? @ -No Were any procedures done? @ -No Diagnosis/symptom? @ -Abdominal pain Acute, or Chronic, or Acute on Chronic? @ -Acute Uncomplicated (without systemic symptoms) or Complicated (systemic symptoms)? @ -Default Side effects of treatment? @ -No Exacerbation, Progression, or Severe Exacerbation? @ -No Poses a threat to life or bodily function? How? (Chest pain, [place], [place], pneumonia, PE, COPD, DKA, ARF, appy, cholecystitis, CVA, Diverticulitis, Homicidal, Suicidal, threat to staff... and all critical care pts) @ -[Low risk at this time - Lab Data Result diagrams: 07/26/24 17:12 07/26/24 17:12 Lab Results 07/26/24 07/26/24 07/26/24 Range/Units 17:12 17:12 17:12 WBC 11.3 H (3.8-10.6) k/uL RBC 5.26 (4.30-5.90) m/uL Hgb 16.5 (13.0-17.5) gm/dL Hct 48.7 (39.0-53.0) % MCV 92.6 (80.0-100.0) fL MCH 31.3 (25.0-35.0) pg MCHC 33.8 (31.0-37.0) g/dL RDW 13.0 (11.5-15.5) % Plt Count 414 (150-450) k/uL MPV 7.6 Neutrophils % 58 % Lymphocytes % 31 % Monocytes % 7 % Eosinophils % 1 % Basophils % 1 % Neutrophils # 6.6 (1.3-7.7) k/uL Lymphocytes # 3.5 (1.0-4.8) k/uL Monocytes # 0.8 (0-1.0) k/uL Eosinophils # 0.2 (0-0.7) k/uL Basophils # 0.1 (0-0.2) k/uL PT 10.5 (10.0-12.5) sec INR 0.9 (<1.2) APTT 26.7 (22.0-30.0) sec Sodium (137-145) mmol/L Potassium (3.5-5.1) mmol/L Chloride (98-107) mmol/L Carbon Dioxide (22-30) mmol/L Anion Gap mmol/L BUN (9-20) mg/dL Creatinine (0.66-1.25) mg/dL Est GFR (CKD-EPI)AfAm (>60 ml/min/1.73 sqM) Est GFR (CKD-EPI)NonAf (>60 ml/min/1.73 sqM) Glucose (74-99) mg/dL Calcium (8.4-10.2) mg/dL Magnesium (1.6-2.3) mg/dL Total Bilirubin (0.2-1.3) mg/dL AST (17-59) U/L ALT (4-49) U/L Alkaline Phosphatase (38-126) U/L Troponin I (0.000-0.034) ng/mL Total Protein (6.3-8.2) g/dL Albumin (3.5-5.0) g/dL Lipase (23-300) U/L Urine Color Urine Appearance (Clear) Urine pH (5.0-8.0) Ur Specific Melvin (1.001-1.035) Urine Protein (Negative) Urine Glucose (UA) (Negative) Urine Ketones (Negative) Urine Blood (Negative) Urine Nitrite (Negative) Urine Bilirubin (Negative) Urine Urobilinogen (<2.0) mg/dL Ur Leukocyte Esterase (Negative) Stool Occult Blood Negative (Negative) 07/26/24 07/26/24 07/26/24 Range/Units 17:12 17:12 19:30 WBC (3.8-10.6) k/uL RBC (4.30-5.90) m/uL Hgb (13.0-17.5) gm/dL Hct (39.0-53.0) % MCV (80.0-100.0) fL MCH (25.0-35.0) pg MCHC (31.0-37.0) g/dL RDW (11.5-15.5) % Plt Count (150-450) k/uL MPV Neutrophils % % Lymphocytes % % Monocytes % % Eosinophils % % Basophils % % Neutrophils # (1.3-7.7) k/uL Lymphocytes # (1.0-4.8) k/uL Monocytes # (0-1.0) k/uL Eosinophils # (0-0.7) k/uL Basophils # (0-0.2) k/uL PT (10.0-12.5) sec INR (<1.2) APTT (22.0-30.0) sec Sodium 138 (137-145) mmol/L Potassium 4.3 (3.5-5.1) mmol/L Chloride 104 (98-107) mmol/L Carbon Dioxide 17 L (22-30) mmol/L Anion Gap 17 mmol/L BUN 25 H (9-20) mg/dL Creatinine 1.24 (0.66-1.25) mg/dL Est GFR (CKD-EPI)AfAm 74 (>60 ml/min/1.73 sqM) Est GFR (CKD-EPI)NonAf 64 (>60 ml/min/1.73 sqM) Glucose 199 H (74-99) mg/dL Calcium 10.6 H (8.4-10.2) mg/dL Magnesium 1.6 (1.6-2.3) mg/dL Total Bilirubin 0.7 (0.2-1.3) mg/dL AST 31 (17-59) U/L ALT 38 (4-49) U/L Alkaline Phosphatase 76 (38-126) U/L Troponin I <0.012 (0.000-0.034) ng/mL Total Protein 7.3 (6.3-8.2) g/dL Albumin 4.8 (3.5-5.0) g/dL Lipase 74 (23-300) U/L Urine Color Light Yellow Urine Appearance Clear (Clear) Urine pH 5.0 (5.0-8.0) Ur Specific Melvin 1.034 (1.001-1.035) Urine Protein Negative (Negative) Urine Glucose (UA) 4+ H (Negative) Urine Ketones Negative (Negative) Urine Blood Negative (Negative) Urine Nitrite Negative (Negative) Urine Bilirubin Negative (Negative) Urine Urobilinogen <2.0 (<2.0) mg/dL Ur Leukocyte Esterase Negative (Negative) Stool Occult Blood (Negative) Disposition Clinical Impression: Abdominal pain Disposition: HOME SELF-CARE Condition: Fair Instructions (If sedation given, give patient instructions): Abdominal Pain (ED) Is patient prescribed a controlled substance at d/c from ED?: No Referrals: Perla Mota MD [Primary Care Provider] - 1-2 days Time of Disposition: 20:02
[2024-07-26] MEDS: HYDROmorphone 0.5 MG/0.5 ML SYRINGE IVP STA (17:15)
[2024-07-26] MEDS: PANTOPRAZOLE 40 MG/10 ML VIAL IVP STA (17:16)
[2024-07-26 17:31] LABS: Basophils # (A) 0.1 k/uL (0-0.2); Basophils % (A) 1 %; Eosinophils # (A) 0.2 k/uL (0-0.7); Eosinophils % (A) 1 %; HCT 48.7 % (39.0-53.0); HGB 16.5 gm/dL (13.0-17.5); Lymphocytes # (A) 3.5 k/uL (1.0-4.8); Lymphocytes % (A) 31 %; MCH 31.3 pg (25.0-35.0); MCHC 33.8 g/dL (31.0-37.0); MCV 92.6 fL (80.0-100.0); Mean Platelet Volume 7.6; Monocytes # (A) 0.8 k/uL (0-1.0); Monocytes % (A) 7 %; Neutrophils # (A) 6.6 k/uL (1.3-7.7); Neutrophils % (A) 58 %; Platelet Count 414 k/uL (150-450); RBC 5.26 m/uL (4.30-5.90); WBC 11.3 k/uL (3.8-10.6)
[2024-07-26 17:44] LABS: INR 0.9 (<1.2); Partial Thromboplastin Time 26.7 sec (22.0-30.0); Prothrombin Time 10.5 sec (10.0-12.5)
[2024-07-26 17:48] LABS: ALT 38 U/L (4-49); AST 31 U/L (17-59); African American GFR (CKD) 74 (>60 ml/min/1.73 sqM); Albumin 4.8 g/dL (3.5-5.0); Alkaline Phosphatase 76 U/L (38-126); Anion Gap 17 mmol/L; Blood Urea Nitrogen 25 mg/dL (9-20); Calcium 10.6 mg/dL (8.4-10.2); Carbon Dioxide 17 mmol/L (22-30); Chloride 104 mmol/L (98-107); Glucose 199 mg/dL (74-99); Lipase 74 U/L (23-300); Magnesium 1.6 mg/dL (1.6-2.3); Non-African American GFR(CKD) 64 (>60 ml/min/1.73 sqM); Potassium 4.3 mmol/L (3.5-5.1); Sodium 138 mmol/L (137-145); Total Bilirubin 0.7 mg/dL (0.2-1.3); Total Protein 7.3 g/dL (6.3-8.2)
--- NOTE | 2024-07-26 18:51 | CT ---
EXAMINATION TYPE: CT abdomen pelvis w con DATE OF EXAM: 07/26/2024 COMPARISON: 02/19/2024 INDICATION: rectal bleeding DLP: 1080.4 mGycm, Automated exposure control for dose reduction was used. CONTRAST: 100 ml mL of Isovue 300. Study performed without Oral Contrast TECHNIQUE: Axial images were obtained from above the diaphragm to the pubic rami in the axial plane a t 5 mm thick sections. Reconstructed images are reviewed on the computer in the coronal plane. FINDINGS: Limited CT sections are obtained the lung bases. Punctate calcification appears to be in the periphe ry of the right lung, image 1. No suspicious consolidation.. CT ABDOMEN: Liver: Normal Spleen: Normal Pancreas: Normal Adrenal glands: The adrenal glands are normal. Gallbladder: Calcification of the wall at the fundus the gallbladder is not excluded. Gallbladder oth erwise appears unremarkable. Kidneys: No masses are evident. No hydronephrosis is present. No cysts are present. No renal stone s evident. Aorta: Vascular calcification is within the aorta. Inferior vena cava: Normal. CT PELVIS: Some minimal thickening of the sigmoid colon a be present. This could be due to incomplete distention . The sigmoid is nondistended with contrast. Consider sigmoid colitis. No suspicious changes to sugge st acute diverticulitis. There are loops of bowel which are incompletely distended or lack oral contr ast limiting their evaluation. Appendix: Normal as visualized. Urinary bladder: Normal. Genitourinary structures: Prostate is normal Osseous structures: No suspicious lytic or sclerotic lesions. Small calcifications within the right s acral alae, series 201 image 59. Degenerative disc changes at the lumbar spine. IMPRESSION: 1. 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 2. Mild diffuse wall thickening through the sigmoid colon is not excluded. Consider colitis. This may be due to incomplete distention. [facility], , 07/26/2024 6:49 PM
[2024-07-26] MEDS: SODIUM CHLORIDE 0.9% 1,000 ML IV ONE (19:39)
[2024-07-26 19:54] LABS: Appearance,Urine Clear (Clear); Bilirubin,Urine Negative (Negative); Blood,Urine Negative (Negative); Color,Urine Light Yellow; Glucose,Urine (UA) 4+ (Negative); Ketones,Urine Negative (Negative); Leukocyte Esterase,Urine Negative (Negative); Nitrite,Urine Negative (Negative); Protein,Urine Negative (Negative); Specific Gravity,Urine 1.034 (1.001-1.035); Urobilinogen,Urine <2.0 mg/dL (<2.0)
[2024-07-26 20:39] VITALS: BP 117/90; PULSE 82; RESP 18
== END 2024-07-26 20:39 | disposition home or self-care (01) ==
LOC: EC 16:34
DX: K92.2 Gastrointestinal hemorrhage, unspecified
CPT/HCPCS: 36415; 74177; 80053; 81003; 82272; 83690; 83735; 84484; 85025; 85610; 85730; 96361; 96374; 96375; 99285